=== PATIENT | female | born 1955 | race Caucasian/White ===

== ENCOUNTER → 2020-06-24 10:46 | Outpatient (CLI) | payer MEDICARE, SELFPAY ==
--- NOTE | 2020-06-24 10:54 | MM_ITS ---
PROCEDURE: MM DIG SCREENING MAMM BI W/CAD Digital Breast Tomosynthesis Included CLINICAL INDICATION: SCREENING There is no personal or family history of breast cancer. COMPARISON: No exams were available for comparison TECHNIQUE: Standard CC and MLO images and 3D Tomosynthesis was obtained. R2 CAD reviewed. FINDINGS: The breasts are composed primarily of fat with minimal scattered fibroglandular densities in the central portions bilaterally. There is minimal arterial calcification in each breast. There is no suspicious lesion in either breast and no suspicious microcalcifications. IMPRESSION: Low-density fatty type breast parenchyma with no suspicious lesions seen BI-RAD Category: 2 Benign Finding(s) FOLLOW-UP: 1YR 1 Year Follow-up (A letter has been sent to the patient regarding results of the study.) Dictated by: Dr. Abrahan Urena MD 07/03/2020 08:39 Dr. Abrahan Urena MD in [place] 07/03/2020 08:39
== END ==
PROVIDERS: PCP Nurse Practitioner Family; Visit Provider Nurse Practitioner Family
DX: Z12.31 Encounter for screening mammogram for malignant neoplasm of breast (principal)
CPT/HCPCS: 77063; 77067

== ENCOUNTER → 2020-08-05 11:20 | Outpatient (CLI) | payer MEDICARE, SELFPAY ==
--- NOTE | 2020-08-05 11:30 | XR_ITS ---
PROCEDURE: XR MULTIPLE SPINE 6+V CLINICAL INDICATION: LOW BACK PAIN Chronic back pain COMPARISON: No exams were available for comparison FINDINGS: Thoracic spine: Normal alignment. No fracture or dislocation. There are small anterior osteophytes in the lower thoracic spine with mild degenerative disc disease in the midthoracic spine. No lytic or blastic change. Lumbar spine: Prior kyphoplasty at the L1 level with some minimal extruded methylmethacrylate on the right. Wedge compression changes involve the L1 vertebral body with loss of height of approximately 40 percent. There is degenerative disc disease at L1-L2 and L2-L3. Mild degenerative disc disease L5-S1. No acute fracture or dislocation. No lytic or blastic change. Incidental note is made of multiple gallstones. IMPRESSION: 1. Chronic wedge compression changes of L1 status post prior vertebroplasty with multilevel thoracic and lumbar spondylosis as described above. 2. Cholelithiasis. Dictated by: Ty Becker MD 08/05/2020 13:26 Ty Becker MD in [place] 08/05/2020 13:26
== END ==
PROVIDERS: PCP Nurse Practitioner Family; Visit Provider Nurse Practitioner
DX: M54.5 Low back pain (principal)
CPT/HCPCS: 72084

== ENCOUNTER 2020-08-23 09:00 | Outpatient (RCR) | payer MEDICARE, SELFPAY | END 2020-09-27 16:15 | disposition home or self-care (01) | LOC: PT.CARL 09:00 | PROVIDERS: Visit Provider Nurse Practitioner | DX: M54.5 Low back pain (principal) | CPT/HCPCS: 97110; 97140; 97163 ==

== ENCOUNTER 2020-09-17 11:30 | Emergency (ER) | payer MEDICARE, SELFPAY ==
[2020-09-17 11:30] VITALS: BP 105/68; PULSE 77; RESP 20; TEMP 37.3; O2SAT 98; BMI 27.4
--- NOTE | 2020-09-17 11:48 | HMH.EDGENADL ---
ED Disposition Clinical Impression: Upper respiratory tract infection due to COVID-19 virus Disposition: Home, Self-Care Condition on Discharge: Good Additional Instructions: You were seen on an emergency basis. It is very important that you follow up with your primary care provider and/or specialist as we discussed within 2 days. All labs and imaging were obtained and interpreted here to rule out life threatening emergencies, but your final results should be reviewed by your primary doctor at your follow up appointment. Please return to the emergency department if any of your symptoms worsen, or if they do not improve as we discussed. Prescriptions: Benzonatate [Tessalon Perle 100mg Cap*] 100 mg PO TID PRN #15 cap PRN Reason: Cough Prescription Printed Referrals: Mayra Duff [Primary Care Provider] - - Critical Care Critical Care Time: No Attestation: On 09/17/20, the high probability of a clinically significant, sudden or life threatening deterioration of the following system(s) required my full and direct attention, intervention and personal management. The time I documented below is in addition to time spent performing reported procedures but includes the following listed in this critical care notation. Medical Decision Making - Medical Records Medical records reviewed: Yes: I reviewed the patient's medical records. - Teddy Inquiry Pt receiving controlled substance: No Orders (Tests/Meds): ED MEDICATIONS Generic Name Dose Route Start Last Admin Trade Name Freq PRN Reason Stop Dose Admin Benzonatate 100 mg 09/17/20 12:00 Benzonatate 100mg Capsule PO 10/17/20 11:59 ONCE MARIANO Discontinued Medications Generic Name Dose Route Start Last Admin Trade Name Freq PRN Reason Stop Dose Admin Dexamethasone Sodium Phosphate 10 mg 09/17/20 11:47 Dexamethasone 4mg/Ml 1ml Vial IM 09/17/20 11:48 ONCE ONE Medical Decision Narrative: 65-year-old female with active COVID-19 infection presenting for checkup mostly here because her is here with worse symptoms. Patient stated that her symptoms have been resolving. Her vitals are essentially normal and she is afebrile, oxygenating well on room air and hemodynamically stable. Mildly bronchospastic on exam but is already on albuterol and Robitussin at home. I will add Tessalon Perles for her cough and give her a dose of IM Decadron here. She has close follow-up with PCP. Chest x-ray and labs are not indicated today. Patient is very well-appearing and essentially asymptomatic here. General Adult HPI - General Stated complaint: covid 19 + soa Time Seen by Provider: 09/17/20 11:48 - History of Present Illness HPI narrative: This is a 65-year-old female with a history of hypertension, diabetes mellitus and a recent diagnosis of COVID-19 upper respiratory infection presenting for cough although patient is primarily here because her who was also diagnosed with Covid is getting worse and she was told to check in as well. Patient states that her cough, shortness of breath, diarrhea and vomiting have all resolved since her initial diagnosis. She has been taking albuterol and Robitussin for occasional shortness of breath which have also markedly improved since her initial diagnosis. Patient states that she essentially feels fine. No fever, chills, nausea, vomiting, shortness of breath, abdominal pain, diarrhea, constipation now. - Related Data Previous Rx's Medication Instructions Recorded Benzonatate [Tessalon Perle 100mg 100 mg PO TID PRN #15 cap 09/17/20 Cap*] Allergies Allergy/AdvReac Type Severity Reaction Status Date / Time NKDA Allergy Unknown Uncoded 08/20/17 15:12 [facility] History - Hepatitis A Screen Attestation statement:: This patient has been screened for Hepatitis A risk factors. I have reviewed the patient's past medical history: Yes ROS Obtained: Yes All systems reviewed & no additional
[2020-09-17 13:28] VITALS: BP 106/70; PULSE 84; RESP 18; TEMP 37.2; O2SAT 98
== END 2020-09-17 13:29 | disposition home or self-care (01) ==
PROVIDERS: Emergency Provider Physician Assistant; PCP Nurse Practitioner Family
DX: U07.1 COVID-19 (principal); I10 Essential (primary) hypertension; E11.9 Type 2 diabetes mellitus without complications
CPT/HCPCS: 96372; 99281

== ENCOUNTER 2021-02-07 11:00 | Outpatient (RCR) | payer MEDICARE, SELFPAY | END 2021-02-28 16:00 | disposition home or self-care (01) | LOC: PT.CARL 11:00 | PROVIDERS: Visit Provider Orthopaedic Surgery | DX: M54.5 Low back pain (principal) | CPT/HCPCS: 97110; 97163 ==

== ENCOUNTER → 2021-07-17 07:39 | Outpatient (CLI) | payer MEDICARE, SELFPAY ==
--- NOTE | 2021-07-17 07:45 | MM_ITS ---
PROCEDURE INFORMATION: Exam: MG Bilateral Screening 3D Mammography Exam date and time: 07/17/2021 7:45 AM Age: 65 years old Clinical indication: Encounter for screening mammogram for malignant neoplasm of breast TECHNIQUE: Imaging protocol: Bilateral screening tomosynthesis and 2D mammography including computer-aided detection (CAD) when performed. COMPARISON: MG MM DIG SCREENING MAMM BI W/CAD 06/24/2020 10:57 AM FINDINGS: MAMMOGRAPHY: Breast composition: The breast tissue is composed of scattered areas of fibroglandular density. Mass: None. Architectural distortion: None. Calcifications: No suspicious calcifications. Asymmetric density: None. Skin thickening: None. Axillary adenopathy: None. IMPRESSION: No mammographic evidence of malignancy. Annual screening is recommended unless otherwise clinically indicated. ASSESSMENT: BI-RADS Category 1: Negative
--- NOTE | 2021-07-17 08:41 | XR_ITS ---
PROCEDURE: XR DEXA AXIAL SKELETON CLINICAL HISTORY: POST MENOPAUSAL COMPARISON: No exams were available for comparison FINDINGS: The right hip BMD is 0.785 with a T-score of -0.6. The left hip BMD is 0.699 with a T-score of -1.4. The lumbar spine BMD is 1.191 with a T-score of 1.3. IMPRESSION: This patient is considered osteopenic according to the World Health Organization criteria. Bone density is between 10 and 25 percent below young normal. Fracture risk is moderate. Treatment is advised. Based on these results a follow-up exam is recommended in 2 year. Dictated by: Ty Becker MD 07/17/2021 11:53 Ty Becker MD in [place] 07/17/2021 11:53
== END ==
PROVIDERS: PCP Nurse Practitioner Family; Visit Provider Nurse Practitioner Family
DX: Z12.31 Encounter for screening mammogram for malignant neoplasm of breast (principal); Z13.820 Encounter for screening for osteoporosis; Z78.0 Asymptomatic menopausal state
CPT/HCPCS: 77063; 77067; 77080

== ENCOUNTER → 2022-10-10 12:28 | Outpatient (CLI) | payer MEDICARE, SELFPAY ==
--- NOTE | 2022-10-10 12:40 | XR_ITS ---
FINAL REPORT TECHNIQUE: Chest PA & Lateral CLINICAL HISTORY: FALL COMPARISON: none FINDINGS: 2 views of the chest were performed. The heart size is normal. The mediastinum is within normal limits. There is scarring at the left lung base. There is no acute cardiopulmonary process. There are no pleural effusions. There is no pneumothorax. The bony thorax appears intact. IMPRESSION: No acute cardiopulmonary process. Reviewed, Interpreted and Dictated by Nicolas Fuentes MD Transcribed by Palma Wetzel Authenticated and [facility]
--- NOTE | 2022-10-10 12:40 | XR_ITS ---
FINAL REPORT CLINICAL HISTORY: FALL COMPARISON: none FINDINGS: Three views of the thoracic spine were obtained. There is compression deformity at L1 of 50%. There are postoperative changes from prior kyphoplasty at L1. There is no malalignment. There is moderate anterior osteophyte formation. IMPRESSION: L1 compression deformity as described. Reviewed, Interpreted and Dictated by Nicolas Fuentes MD Transcribed by Palma Wetzel Authenticated and [facility]
--- NOTE | 2022-10-10 12:40 | XR_ITS ---
FINAL REPORT CLINICAL HISTORY: Acute right rib pain after fall COMPARISON: None FINDINGS: 3 views of the right ribs were obtained. There is no displaced, acute fracture identified. The visualized lungs are clear. No pneumothorax is identified. IMPRESSION: No displaced rib fracture or pneumothorax identified. Reviewed, Interpreted and Dictated by Nicolas Fuentes MD Transcribed by Palma Wetzel Authenticated and [facility]
== END ==
PROVIDERS: PCP Nurse Practitioner Family; Visit Provider Nurse Practitioner Family
DX: R07.81 Pleurodynia (principal); M54.6 Pain in thoracic spine; W01.0XXA Fall on same level from slipping, tripping and stumbling without subsequent striking against object, initial encounter
CPT/HCPCS: 71046; 71111; 72072

== ENCOUNTER 2023-09-23 10:33 | Outpatient (POV) | payer MEDICARE, SELFPAY | END 2023-09-23 23:59 | disposition home or self-care (01) | LOC: SC 10:34 | PROVIDERS: Visit Provider Nurse Practitioner | DX: Z00.00 Encounter for general adult medical examination without abnormal findings (principal) ==

== ENCOUNTER 2024-03-25 12:30 | Emergency (ER) | payer MEDICARE, SELFPAY ==
[2024-03-25 12:33] VITALS: BP 160/97; PULSE 86; RESP 18; TEMP 36.8; O2SAT 97; BMI 21.9
--- NOTE | 2024-03-25 13:04 | PC.NURSE ---
DR SANDOVAL AT BEDSIDE
[2024-03-25] MEDS: diazePAM 5MG TABLET 5 MG PO (13:25)
[2024-03-25] MEDS: ACETAMINOPHEN 500MG TAB 1000 MG PO (13:25)
[2024-03-25] MEDS: GABAPENTIN 100MG CAPSULE 100 MG PO (13:26)
[2024-03-25] MEDS: KETOROLAC 30MG/ML VIAL 30 MG IM (13:26)
[2024-03-25] MEDS: LIDOCAINE 5% TRANSDERMAL PATCH 1 EACH TP (13:27)
--- NOTE | 2024-03-25 13:41 | HMH.EDGENADL ---
Discharge Plan Disposition Patient Disposition: Home, Self-Care Condition: Good Prescriptions Prescriptions: New oxycodone 5 mg tablet 5 mg PO HS Qty: 3 0RF Rx Instructions: Take before bed nightly lidocaine 5 % adhesive patch,medicated See Rx Instructions .ROUTE .COMPLEX Qty: 15 0RF Rx Instructions: Remove the patch after 12 hours and leave off for 12 hours before putting on a new patch ondansetron 4 mg tablet,disintegrating 4 mg PO Q8H PRN (Reason: nausea and vomiting) 4 Days Qty: 10 0RF Referrals Follow up/Referrals: Mayra Duff [Primary Care Provider] - See instructions Activity Restrictions/Add. Instructions Additional Instructions/Restrictions: You were evaluated in the ER. You are appropriate for discharge at this time. Continue taking your gabapentin. Take the newly prescribed oxycodone at nighttime only before bed. Go directly to bed after taking this. Apply the prescribed lidocaine patches as directed. Also take Tylenol if needed, do not exceed the recommended doses on the bottle. Do not take your tramadol while taking oxycodone. Call your primary care provider for an appointment in the next 2 days to discuss your medications and pain. Return to the ER with new or otherwise concerning symptoms. Clinical Impressions Clinical Impression: Acute left-sided back pain with sciatica Print Language Print Language: Belgian Discharge ED Provider: Gavi Campbell General Adult HPI <Gavi Campbell DO - Last Filed: 03/25/24 16:09> General Chief complaint: Extremity Problem,Nontraumatic Stated complaint: left leg, hip and back pain Time Seen by Provider: 03/25/24 13:09 Mode of Arrival: Wheelchair Source of Information: Patient Limitations: No Limitations Description of Symptoms (Recalled from ER Triage Doc. by RN): patient reports severe left hip pain that is worse with movement. patient reports the pain began in January, seen her PCP and the spine clinic. last night and upon waking up this morning the pain is significantly worse and the patient states untolerable. History of Present Illness HPI narrative: This patient is a 68-year-old female with a history of degenerative disc disease and chronic back pain on gabapentin who reports that for the last several months, she has been having sciatica. She has seen a spine doctor who told her she needs to do 6 weeks of physical therapy, which she is doing. She is also on gabapentin 100 mg 3 times daily, but the pain has been very severe over the last several days to the point where she is not able to sleep. No new falls or injuries. The pain starts in her left foot and shoots all the way down to her left foot on the posterior aspect. No saddle anesthesia, incontinence, retention, or other concerns. Related Data Previous Rx's ?Medication ?Instructions ?Recorded lidocaine 5 % topical patch See Rx Instructions topical 03/25/24 .COMPLEX #15 ea ondansetron 4 mg disintegrating 4 mg PO Q8H PRN nausea and 03/25/24 tablet vomiting 4 days #10 tabs oxycodone 5 mg tablet 5 mg PO HS #3 tabs 03/25/24 Allergies Allergy/AdvReac Type Severity Reaction Status Date / Time sulfamethoxazole Allergy Verified 03/25/24 12:50 [From Bactrim] trimethoprim [From Bactrim] Allergy Verified 03/25/24 12:50 PFSH <Gavi Campbell DO - Last Filed: 03/25/24 16:09> [facility] Disclaimer: The information contained in this section may have been updated after the patient was seen, as this information can be updated by other users. Social History (Updated 03/25/24 @ 16:09 by Gavi Campbell DO) Smoking Status: Never smoker alcohol intake: never current occupational status: retired Travel in the last 8 weeks: None <Gavi Campbell DO - Last Filed: 03/25/24 16:09> ROS Obtained: Yes All systems reviewed & no additional complaints except as documented Physical Exam <Gavi Campbell DO - Last Filed: 03/25/24 16:09> General General appearance: alert and anxious Comment: Uncomfortable appearing, tearful Head Head exam: atraumatic and normocephalic Eye Eye exam: Present normal appearance, PERRL and EOMI ENT ENT exam: Present normal exam, normal oropharynx, mucous membranes moist and normal external ear exam Neck Neck exam: Present normal inspection, full ROM and trachea midline; Absent tenderness Chest Chest inspection: Present normal inspection and symmetric chest wall rise; Absent tenderness Respiratory Respiratory exam: Present normal lung sounds bilaterally; Absent respiratory distress, wheezes, stridor or accessory muscle use Cardiovascular Cardiovascular exam: Present regular rate and normal rhythm Abdominal Exam Abdominal exam: Present soft; Absent distention, tenderness or guarding Extremities Exam Extremities exam: Present normal inspection, full ROM and normal capillary refill; Absent tenderness or edema Back Exam Back exam: Present full ROM and straight leg raise (L); Absent tenderness Neurological Exam Neurological exam: Present alert, oriented X3, CN II-XII intact and normal gait; Absent motor sensory deficit Psychiatric Psychiatric exam: Present normal affect and normal mood Skin Skin exam: Present warm and dry Medical Decision Making <Gavi Campbell, DO - Last Filed: 03/25/24 16:09> Medical Records Medical records reviewed: Yes I reviewed the patient's medical records. Teddy Inquiry Pt receiving controlled substance: No Vital Signs: 03/25/24 12:33 Temperature 98.3 F Temperature Source Oral Pulse Rate [Right Radial] 86 Respiratory Rate 18 Blood Pressure [Right Arm] 160/97 H Blood Pressure Mean [Right Arm] 118 Blood Pressure Source [Right Arm] Automatic Cuff Blood Pressure Position [Right Arm] Sitting 02 Sat by Pulse Oximetry 97 Oxygen Delivery Method Room Air Lab Data Lab results reviewed: Yes I reviewed the patient's lab results. Orders (Tests/Meds): ED MEDICATIONS Discontinued Medications Generic Name Dose Route Start Last Admin Trade Name Juvenal PRN Reason Stop Dose Admin Acetaminophen 1,000 mg 03/25/24 13:09 03/25/24 13:25 Acetaminophen 500mg Tab PO 03/25/24 13:10 1,000 mg ONCE ONE Administration Diazepam 5 mg 03/25/24 13:03/25/24 13:25 Diazepam 5mg Tablet PO 03/25/24 13:10 5 mg ONCE ONE Administration Gabapentin 200 mg 03/25/24 13:03/25/24 13:45 Gabapentin 100mg Capsule PO 03/25/24 13:10 Not Given ONCE ONE Gabapentin 100 mg 03/25/24 13:03/25/24 13:26 Gabapentin 100mg Capsule PO 03/25/24 13:10 100 mg ONCE ONE Administration Ketorolac Tromethamine 30 mg 03/25/24 13:03/25/24 13:26 Ketorolac 30mg/Ml Vial IM 03/25/24 13:10 30 mg ONCE ONE Administration Lidocaine 1 each 03/25/24 13:09 03/25/24 13:27 Lidocaine 5% Transdermal Patch TP 03/25/24 13:10 1 each ONCE ONE Administration Oxycodone HCl 5 mg 03/25/24 15:13 03/25/24 15:21 Oxycodone 5mg Immediate Release Tablet PO 03/25/24 15:14 5 mg ONCE ONE Administration ORDERS Category Date Time Status CT lumbar spine wo con Stat Cat Scan 03/25/24 15:00 Completed Hip XR left minimum 2 views [XR hip LT 2-3V w/pelvis] Exams 03/25/24 15:00 Completed Stat Medical Decision Narrative: In summary, this patient is a 68-year-old female presenting to the Emergency Department for evaluation of left-sided sciatica is acute on chronic. Differential diagnoses considered include but are not limited to sciatica, lumbar radiculopathy, disc herniation. Ruling out the most morbid conditions drove assessment. On exam, the patient is anxious appearing and tearful. She is neurologically intact with no evidence of spinal cord compression or cauda equina syndrome. 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 Will treat the patient's symptoms and see if we are able to get her under control and ambulating better. Patient was given IM Toradol, oral Tylenol, oral Valium, and additional dose of oral gabapentin, and a topical Lidoderm patch. On reassessment, patient states that she is gotten no improvement with these medications. She states she still having really severe back and leg pain. She was given oral oxycodone. Given this, CT lumbar spine and x-rays of the left hip and pelvis were ordered. Patient care was signed out to the oncoming provider, Dr. Gonzalez. <Anjali Gonzalez MD - Last Filed: 03/25/24 17:49> Teddy Inquiry Pt receiving controlled substance: Yes Teddy was queried for this patient: Yes Reference #:: [id number] Risks and benefits of using a controlled substance: were discussed with pt by me Comment: explicit instructions given to patient on home medication use Vital Signs: 03/25/24 12:33 Temperature 98.3 F Temperature Source Oral Pulse Rate [Right Radial] 86 Respiratory Rate 18 Blood Pressure [Right Arm] 160/97 H Blood Pressure Mean [Right Arm] 118 Blood Pressure Source [Right Arm] Automatic Cuff Blood Pressure Position [Right Arm] Sitting 02 Sat by Pulse Oximetry 97 Oxygen Delivery Method Room Air Orders (Tests/Meds): ED MEDICATIONS Discontinued Medications Generic Name Dose Route Start Last Admin Trade Name Juvenal PRN Reason Stop Dose Admin Acetaminophen 1,000 mg 03/25/24 13:09 03/25/24 13:25 Acetaminophen 500mg Tab PO 03/25/24 13:10 1,000 mg ONCE ONE Administration Diazepam 5 mg 03/25/24 13:09 03/25/24 13:25 Diazepam 5mg Tablet PO 03/25/24 13:10 5 mg ONCE ONE Administration Gabapentin 200 mg 03/25/24 13:09 03/25/24 13:45 Gabapentin 100mg Capsule PO 03/25/24 13:10 Not Given ONCE ONE Gabapentin 100 mg 03/25/24 13:09 03/25/24 13:26 Gabapentin 100mg Capsule PO 03/25/24 13:10 100 mg ONCE ONE Administration Ketorolac Tromethamine 30 mg 03/25/24 13:09 03/25/24 13:26 Ketorolac 30mg/Ml Vial IM 03/25/24 13:10 30 mg ONCE ONE Administration Lidocaine 1 each 03/25/24 13:09 03/25/24 13:27 Lidocaine 5% Transdermal Patch TP 03/25/24 13:10 1 each ONCE ONE Administration Oxycodone HCl 5 mg 03/25/24 15:13 03/25/24 15:21 Oxycodone 5mg Immediate Release Tablet PO 03/25/24 15:14 5 mg ONCE ONE Administration ORDERS Category Date Time Status CT lumbar spine wo con Stat Cat Scan 03/25/24 15:00 Completed Hip XR left minimum 2 views [XR hip LT 2-3V w/pelvis] Exams 03/25/24 15:00 Completed Stat Medical Decision Narrative: In summary, this patient is a 68-year-old female presenting to the Emergency Department for evaluation of left-sided sciatica is acute on chronic. Differential diagnoses considered include but are not limited to sciatica, lumbar radiculopathy, disc herniation. Ruling out the most morbid conditions drove assessment. On exam, the patient is anxious appearing and tearful. She is neurologically intact with no evidence of spinal cord compression or cauda equina syndrome. 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 Will treat the patient's symptoms and see if we are able to get her under control and ambulating better. Patient was given IM Toradol, oral Tylenol, oral Valium, and additional dose of oral gabapentin, and a topical Lidoderm patch. On reassessment, patient states that she is gotten no improvement with these medications. She states she still having really severe back and leg pain. She was given oral oxycodone. Given this, CT lumbar spine and x-rays of the left hip and pelvis were ordered. Patient care was signed out to the oncoming provider, Dr. Gonzalez. Carlos: Upon my assumption of care patient is stable. She had just received oral oxycodone and was still complaining of pain. Imaging was pending. I personally interpreted imaging and do not appreciate acute traumatic injury, patient has findings consistent with degenerative changes. On reassessment patient was sleeping and resting comfortably. She was able to ambulate in the ER. Her pain is significantly improved. I spent significant time at bedside counseling and educating the patient on home medications. She states the tramadol she had been previously prescribed she is not currently taking, but it never worked for her anyways. I instructed her to stop taking this and gave her a very small prescription for oxycodone to only be taken at night to help her rest. This is only to be used for her acute pain flare. She and family were instructed to have her see her primary care physician immediately to discuss ongoing pain medications. Patient still has no red flag symptoms and is appropriate for discharge. I did prescribe Zofran and lidocaine patches as well for outpatient management. Patient was given instructions on symptomatic management, follow up instructions, and return precautions for the emergency department. Patient indicated understanding and was discharged in stable condition. Critical Care <Gavi Campbell, - Last Filed: 03/25/24 16:09> Critical Care Time Critical Care Time: No
--- NOTE | 2024-03-25 15:00 | CT_ITS ---
FINAL REPORT CLINICAL HISTORY: pain rad down L leg COMPARISON: MRI of the lumbar spine dated 10/30/2021 FINDINGS: CT LUMBAR SPINE TECHNIQUE: Thin section axial CT with sagittal and coronal reconstructions FINDINGS: Post kyphoplasty change is present in the L1 vertebral body. A mild chronic compression fracture is noted at that level. No acute fracture is present. Alignment is normal. There is mild central canal stenosis present at the L2-3, L3-4, and L5-S1 levels, with moderate canal stenosis present at the L4-5 level. Moderate diffuse degenerative disc disease is present. IMPRESSION: No acute bony abnormality is identified. Multilevel canal stenosis is present, most prominent at the L4-5 level. Would suggest MR follow-up if clinically indicated for further evaluation. This study was performed using automated techniques to achieve radiation exposure as low as reasonably achievable Reviewed, Interpreted and Dictated by Vincent Sow MD Transcribed by Karime Henderson Authenticated and [facility]
--- NOTE | 2024-03-25 15:00 | XR_ITS ---
FINAL REPORT CLINICAL HISTORY: pain rad down L leg COMPARISON: None FINDINGS: LEFT HIP: Two views of the left hip demonstrate no acute fracture or dislocation. Moderate degenerative changes are present. The visualized bony structures are well aligned. No soft tissue abnormality is seen. IMPRESSION: Moderate degenerative change, no acute bony abnormality. Reviewed, Interpreted and Dictated by Vincent Sow MD Transcribed by Karime Henderson Authenticated and [facility]
[2024-03-25] MEDS: OXYCODONE 5MG IMMEDIATE RELEASE TABLET 5 MG PO (15:21)
--- NOTE | 2024-03-25 15:30 | PC.NURSE ---
patient and family updated about ct and xray ordered. pain med administered
[2024-03-25] MEDS: ONDANSETRON 4MG ODT 4 MG SL (17:48)
[2024-03-25 18:00] VITALS: BP 170/89; PULSE 90; RESP 19; TEMP 36.4
== END 2024-03-25 18:00 | disposition home or self-care (01) ==
PROVIDERS: Emergency Provider Emergency Medicine; PCP Nurse Practitioner Family
DX: M54.42 Lumbago with sciatica, left side (principal)
CPT/HCPCS: 72131; 73502; 96372; 99284; J1885

== ENCOUNTER 2024-05-06 12:24 | Inpatient (IN) | payer MEDICARE, SELFPAY ==
[2024-05-06] VITALS (9 sets, daily range): BP systolic 103–183; BP diastolic 58–92; PULSE 74–94; RESP 13–18; TEMP 36.5–36.9; O2SAT 97–99; BMI 19.7; BMI 21.4
--- NOTE | 2024-05-06 | ECG_ITS ---
APPROVED REPORT Exam: Resting ECG HR:90 bpm ECG Measurements Heart Rate 90 AXES AZ 128 P 59 QRSd 90 QRS 69 QT 318 T 77 QTc 366 Conclusion SINUS RHYTHM NORMAL ECG UNCONFIRMED REPORT Electronically signed by : SHONDA PATEL, 05/06/2024 15:42:57
--- NOTE | 2024-05-06 12:51 | PC.NURSE ---
Dr. Frost at [facility] for pt eval
--- NOTE | 2024-05-06 12:58 | CT_ITS ---
FINAL REPORT CLINICAL HISTORY: Lower abd pain COMPARISON: None FINDINGS: CT OF THE ABDOMEN AND PELVIS WITH CONTRAST Axial CT images of the abdomen and pelvis were obtained after the administration of IV contrast. Coronal and sagittal reformatted images were also obtained and reviewed. This study was performed with techniques to keep radiation doses as low as reasonably achievable (ALARA). Individualized dose reduction techniques using automated exposure control or adjustment of mA and/or kV according to the patient's size were employed. Abdomen: The lung bases are clear. The heart is normal in size. The liver has an unremarkable appearance, without evidence of mass or biliary ductal dilatation. There are multiple stones and a contracted gallbladder with marked gallbladder wall thickening, and cholecystitis is not excluded. The spleen is unremarkable. No adrenal mass is present. The pancreas has an unremarkable appearance. The kidneys are normal, without evidence of mass or hydronephrosis. The aorta is normal in caliber. There is no free fluid or adenopathy. No mass or abnormal fluid collection is seen. Pelvis: The appendix is normal in appearance the urinary bladder is unremarkable. No inflammatory process is seen. There is no evidence of mass or adenopathy. There is no evidence of bowel obstruction. There are multiple descending and sigmoid colon diverticula without evidence of acute inflammatory change. A previous kyphoplasty has been performed at the L1 level. IMPRESSION: Multiple gallstones are present in a contracted gallbladder with marked gallbladder wall thickening, and cholecystitis is not excluded. No biliary ductal dilatation is present. Descending and sigmoid diverticulosis without evidence of acute inflammatory change. Prior L1 kyphoplasty. Reviewed, Interpreted and Dictated by Sunny Thompson III, MD Transcribed by Karime Henderson Authenticated and [facility]
[2024-05-06 13:08] LABS: Chloride 96 mmol/L (98-107)
[2024-05-06 13:09] LABS: Albumin Level 4.4 g/dl (3.5-5.0); Potassium 5.1 mmoL/L (3.5-5.1); Sodium 131 mmol/L (136-145)
[2024-05-06] MEDS: ONDANSETRON 4MG/2ML VIAL 4 MG IV ×2 (13:10→17:26)
[2024-05-06 13:11] LABS: Alanine Aminotransferase 52 U/L (12-78); Alkaline Phosphatase 35 U/L (38-126); Aspartate Amino Transferase 37 U/L (14-36); Blood Urea Nitrogen 16 mg/dl (7-17); Creatinine Clearance Estimated 34 mL/min (50-200); Estimated Glomerular Filt Rate 41 ml/min (>60); GFR (African American) 49 ML/MIN (>60)
[2024-05-06 13:12] LABS: Albumin/Globulin Ratio 1.7 (1.1-1.8); Anion Gap 11.1 mEq/L (5-15); Basophils # 0.1 K/mm3 (0-0.2); Basophils % 0.8 % (0.1-2.0); Calcium 9.8 mg/dl (8.4-10.2); Carbon Dioxide 29 mmol/L (22.0-30.0); Eosinophils # 0.1 K/mm3 (0.0-0.4); Eosinophils % 0.8 % (0.1-12.0); Globulin 2.6 g/dL (1.3-3.2); Glucose 135 mg/dl (74-100); Hematocrit 38.6 % (37.0-47.0); Hemoglobin 12.6 g/dL (12.2-16.2); Lipase 293 U/L (23-300); Lymphocytes # 1.5 K/mm3 (0.7-4.5); Lymphocytes % 18.5 % (10-50); Mean Corpuscular HGB Conc 32.7 g/dL (31.8-35.4); Mean Corpuscular Hemoglobin 31.3 pg (27.0-31.2); Mean Corpuscular Volume 95.7 fl (81-99); Mean Platelet Volume 7.9 fl (7.4-10.4); Monocytes # 0.5 K/mm3 (0.1-1.0); Monocytes % 5.8 % (1.7-9.3); Neutrophils # 6.1 K/mm3 (1.8-7.8); Platelet Count 226 K/mm3 (142-424); Red Blood Count 4.03 M/mm3 (4.20-5.40); White Blood Count 8.2 K/mm3 (4.8-10.8)
[2024-05-06 13:13] LABS: Lactic Acid 2.4 mmol/L (0.7-2.1)
--- NOTE | 2024-05-06 13:14 | ED_ITS ---
Discharge Plan Disposition Patient Disposition: Admitted Condition: Good Clinical Impressions Clinical Impression: UTI (urinary tract infection), Abdominal pain, lower, Decreased oral intake, Generalized weakness, Gallstones Discharge ED Provider: Gavi Campbell General Adult HPI <Deepak Frost DO - Last Filed: 05/06/24 15:32> General Chief complaint: Weakness Stated complaint: not eating, drinking, stomach cramps, weight loss Time Seen by Provider: 05/06/24 12:49 Mode of Arrival: Ambulatory Source of Information: Patient Limitations: No Limitations Description of Symptoms (Recalled from ER Triage Doc. by RN): pt presents to ED with c/o feeling unwell for the past 3 weeks. pt reports for 3 weeks she has had increased weakness, no appetite, nausea, dizziness. pt reports to being seen by her pcp but symptoms continue to worsen. History of Present Illness HPI narrative: 68-year-old female with past medical history significant for DM2, HTN, HLD, hypothyroidism, reports remote history of brain aneurysm, presents today for evaluation concerning decreased p.o. intake with associated nausea over the past 3 to 4 weeks. She also states that she has had lower abdominal cramping and reports urinary frequency on today. She also reports that she has had intermittent episodes of diarrhea over the past few days. Also complains of generalized weakness. Denies any chest pain, shortness of breath, fevers or chills. No further complaints. Related Data Previous Rx's ?Medication ?Instructions ?Recorded lidocaine 5 % topical patch See Rx Instructions topical 03/25/24 .COMPLEX #15 ea ondansetron 4 mg disintegrating 4 mg PO Q8H PRN nausea and 03/25/24 tablet vomiting 4 days #10 tabs oxycodone 5 mg tablet 5 mg PO HS #3 tabs 03/25/24 cefdinir 300 mg capsule 300 mg PO BID 5 days #10 caps 05/06/24 Allergies Allergy/AdvReac Type Severity Reaction Status Date / Time sulfamethoxazole Allergy Verified 03/25/24 12:50 [From Bactrim] trimethoprim [From Bactrim] Allergy Verified 03/25/24 12:50 PFSH <Deepak Frost DO - Last Filed: 05/06/24 15:32> PFS Disclaimer: The information contained in this section may have been updated after the patient was seen, as this information can be updated by other users. Social History (Updated 03/25/24 @ 16:09 by Gaiv Campbell DO) Smoking Status: Never smoker alcohol intake: never current occupational status: retired Travel in the last 8 weeks: None <Deepakjoel Frost DO - Last Filed: 05/06/24 15:32> ROS Obtained: Yes All systems reviewed & no additional complaints except as documented Physical Exam <Deepakjoel Frost DO - Last Filed: 05/06/24 15:32> General General appearance: alert and in no apparent distress Head Head exam: atraumatic and normocephalic Eye Eye exam: Present normal appearance, PERRL and EOMI ENT ENT exam: Present normal oropharynx and mucous membranes moist Neck Neck exam: Present full ROM; Absent meningismus Respiratory Respiratory exam: Absent respiratory distress, wheezes, stridor or accessory muscle use Cardiovascular Cardiovascular exam: Present normal rhythm Abdominal Exam Abdominal exam: Present soft; Absent distention, tenderness, guarding, rebound or rigidity Abdominal tenderness: Present RLQ, LLQ and suprapubic Neurological Exam Neurological exam: Present alert, oriented X3 and CN II-XII intact; Absent motor sensory deficit Psychiatric Psychiatric exam: Present normal affect and normal mood Skin Skin exam: Present warm and dry Medical Decision Making <Albanyjoel Frost DO - Last Filed: 05/06/24 15:32> Medical Records Medical records reviewed: Yes I reviewed the patient's medical records. Teddy Inquiry Pt receiving controlled substance: No Teddy was queried for this patient: No Vital Signs: 05/06/24 12:25 05/06/24 12:29 05/06/24 13:00 Temperature 97.7 F Temperature Source Oral Pulse Rate 79 81 Pulse Rate [Left Radial] 94 H Respiratory Rate 13 Blood Pressure 119/66 103/65 L Blood Pressure [Right Arm] 119/66 Blood Pressure Mean [Right Arm] 83 02 Sat by Pulse Oximetry 98 98 99 Oxygen Delivery Method Room Air Room Air Room Air 05/06/24 13:58 05/06/24 14:00 05/06/24 17:23 Temperature Temperature Source Pulse Rate 78 82 86 Pulse Rate [Left Radial] Respiratory Rate Blood Pressure 116/72 136/73 183/92 H Blood Pressure [Right Arm] Blood Pressure Mean [Right Arm] 02 Sat by Pulse Oximetry 98 98 99 Oxygen Delivery Method Room Air Lab Data Lab Results 05/06/24 12:45: WBC 8.2, RBC 4.03 L, Hgb 12.6, Hct 38.6, MCV 95.7, MCH 31.3 H, MCHC 32.7, RDW 15.0, Plt Count 226, MPV 7.9, Neut % (Auto) 74.0, Lymph % (Auto) 18.5, [place]wey % (Auto) 5.8, Eos % (Auto) 0.8, Baso % (Auto) 0.8, Neut # (Auto) 6.1, Lymph # (Auto) 1.5, [place] # (Auto) 0.5, Eos # (Auto) 0.1, Baso # (Auto) 0.1, S odium 131 L, Potassium 5.1, Chloride 96 L, Carbon Dioxide 29, Anion Gap 11.1, BUN 16, Creatinine 1.30 H, Estimated Creat Clear 34, Estimated GFR 41 L, Est GFR ( Amer) 49 L, Glucose 135 H, Lactate 2.4 H, Calcium 9.8, Total Bilirubin 1.0, AST 37 H, ALT 52, Alkaline Phosphatase 35 L, Total Protein 7.0, Albumin 4.4, Globulin 2.6, Albumin/Globulin Ratio 1.7, Lipase 293 05/06/24 13:41: Urine Color Yellow, Urine Appearance Clear, Urine pH 6.0, Ur Specific [place] <= 1.005, Urine Protein Negative, Urine Glucose (UA) Negative, Urine Ketones Negative, Urine Blood Negative, Urine Nitrate Negative, Urine Bilirubin Negative, Urine Urobilinogen 0.2, Ur Leukocyte Esterase 2+ A, Urine RBC None, Urine WBC 10-20, Ur Squamous Epith Cells 5-10, Urine Bacteria Trace, Urine Yeast Occasional 05/06/24 12:45 05/06/24 12:45 Orders (Tests/Meds): ED MEDICATIONS Discontinued Medications Generic Name Dose Route Start Last Admin Trade Name Freq PRN Reason Stop Dose Admin Acetaminophen 1,000 mg 05/06/24 13:19 05/06/24 13:26 Acetaminophen 1,000mg/100ml Vial IV 05/06/24 13:20 1,000 mg ONCE ONE Administration Lactated Ringer's 1,000 mls @ 999 mls/hr 05/06/24 13:23 05/06/24 13:26 Lactated Ringer's 1000 Ml Bag IV 05/06/24 14:23 999 mls/hr .Q1H1M ONE Administration Piperacillin Sod/Tazobactam 50 mls @ 100 mls/hr 05/06/24 17:25 Sod 3.375 gm/ Sodium Chloride IV 05/06/24 17:54 ONCE ONE Iopamidol 75 ml 05/06/24 13:25 05/06/24 13:30 Iopamidol-370 (76%);100ml Bottle IV 05/06/24 13:26 75 ml ONCE ONE Administration Morphine Sulfate 2 mg 05/06/24 12:58 05/06/24 17:00 Morphine 2mg/Ml Syringe IV 05/06/24 12:59 Not Given ONCE ONE Morphine Sulfate 4 mg 05/06/24 17:06 05/06/24 17:26 Morphine 4mg/Ml Syringe IV 05/06/24 17:07 4 mg ONCE ONE Administration Ondansetron HCl 4 mg 05/06/24 12:58 05/06/24 13:10 Ondansetron 4mg/2ml Vial IV 05/06/24 12:59 4 mg ONCE ONE Administration Ondansetron HCl 4 mg 05/06/24 17:06 05/06/24 17:26 Ondansetron 4mg/2ml Vial IV 05/06/24 17:07 4 mg ONCE ONE Administration Sodium Chloride 10 ml 05/06/24 13:25 05/06/24 13:30 Sodium Chloride 0.9% 10ml Syr (Rad Only) IV 05/06/24 13:26 10 ml ONCE ONE Administration ORDERS Category Date Time Status CT abdomen pelvis w con Stat Cat Scan 05/06/24 12:58 Completed US gallbladder Stat Exams 05/06/24 15:09 Completed CBC w/Auto Diff [Complete Blood Count Auto Diff] Stat Lab 05/06/24 12:45 Completed CMP [Comprehensive Metabolic Panel] Stat Lab 05/06/24 12:45 Completed Lactic Acid Follow Up (RFLX 1) Stat Lab 05/06/24 17:23 Received Lactic Acid Stat Lab 05/06/24 12:45 Completed Lipase Stat Lab 05/06/24 12:45 Completed UA [Urinalysis and Microscopic] Stat Lab 05/06/24 13:41 Completed Urine Culture Stat Micro 05/06/24 13:41 Received Medical Decision Narrative: 68-year-old female with past medical history significant for DM2, HTN, HLD, hypothyroidism, reports remote history of brain aneurysm, presents today for evaluation concerning decreased p.o. intake with associated nausea over the past 3 to 4 weeks. She also states that she has had lower abdominal cramping and reports urinary frequency on today. She also reports that she has had intermittent episodes of diarrhea over the past few days. Also complains of generalized weakness. On assessment she was hemodynamically stable and in no acute distress. Afebrile. Chest was clear station bilaterally. Her abdomen was soft and nondistended however she was tender to palpation in the lower quadrants. No peripheral edema noted. She was otherwise well-appearing. Otherwise exam findings unremarkable. Differential diagnoses include but limited to diverticulitis, colitis, UTI, electrolyte disturbance, gastritis, gastroenteritis, appendicitis, among others. Patient's laboratory has been remarkable for no elevation in WBC at 8.2. Sodium of 131. Creatinine is elevated at 1.3. Lactate at 2.4. She does have 2+ leukocyte esterase, 10-20 WBCs, trace bacteria on urinalysis consistent with UTI in the setting of her symptoms. EKG personally inter by me. Normal sinus rhythm with a rate of [address]pm[address] No ischemic changes. CT imaging shows multiple gallstones and contracted gallbladder with marked gallbladder wall thickening. Descending and sigmoid diverticulosis without inflammatory changes. On reassessment the patient hemodynamically stable and in no acute distress. I discussed ED workup and current results. She is not significantly tender in the right upper quadrant on repeat examination however I will order a formal right upper quadrant ultrasound to further assess. Care at this time signed out to oncoming provider. <Gavi Campbell, DO - Last Filed: 05/06/24 18:09> Vital Signs: 05/06/24 12:25 05/06/24 12:29 05/06/24 13:00 Temperature 97.7 F Temperature Source Oral Pulse Rate 79 81 Pulse Rate [Left Radial] 94 H Respiratory Rate 13 Blood Pressure 119/66 103/65 L Blood Pressure [Right Arm] 119/66 Blood Pressure Mean [Right Arm] 83 02 Sat by Pulse Oximetry 98 98 99 Oxygen Delivery Method Room Air Room Air Room Air 05/06/24 13:58 05/06/24 14:00 05/06/24 17:23 Temperature Temperature Source Pulse Rate 78 82 86 Pulse Rate [Left Radial] Respiratory Rate Blood Pressure 116/72 136/73 183/92 H Blood Pressure [Right Arm] Blood Pressure Mean [Right Arm] 02 Sat by Pulse Oximetry 98 98 99 Oxygen Delivery Method Room Air Lab Data Lab Results 05/06/24 12:45: WBC 8.2, RBC 4.03 L, Hgb 12.6, Hct 38.6, MCV 95.7, MCH 31.3 H, MCHC 32.7, RDW 15.0, Plt Count 226, MPV 7.9, Neut % (Auto) 74.0, Lymph % (Auto) 18.5, [place] % (Auto) 5.8, Eos % (Auto) 0.8, Baso % (Auto) 0.8, Neut # (Auto) 6.1, Lymph # (Auto) 1.5, [place] # (Auto) 0.5, Eos # (Auto) 0.1, Baso # (Auto) 0.1, S odium 131 L, Potassium 5.1, Chloride 96 L, Carbon Dioxide 29, Anion Gap 11.1, BUN 16, Creatinine 1.30 H, Estimated Creat Clear 34, Estimated GFR 41 L, Est GFR ( Amer) 49 L, Glucose 135 H, Lactate 2.4 H, Calcium 9.8, Total Bilirubin 1.0, AST 37 H, ALT 52, Alkaline Phosphatase 35 L, Total Protein 7.0, Albumin 4.4, Globulin 2.6, Albumin/Globulin Ratio 1.7, Lipase 293 05/06/24 13:41: Urine Color Yellow, Urine Appearance Clear, Urine pH 6.0, Ur Specific [place] <= 1.005, Urine Protein Negative, Urine Glucose (UA) Negative, Urine Ketones Negative, Urine Blood Negative, Urine Nitrate Negative, Urine Bilirubin Negative, Urine Urobilinogen 0.2, Ur Leukocyte Esterase 2+ A, Urine RBC None, Urine WBC 10-20, Ur Squamous Epith Cells 5-10, Urine Bacteria Trace, Urine Yeast Occasional Orders (Tests/Meds): ED MEDICATIONS Discontinued Medications Generic Name Dose Route Start Last Admin Trade Name Freq PRN Reason Stop Dose Admin Acetaminophen 1,000 mg 05/06/24 13:19 05/06/24 13:26 Acetaminophen 1,000mg/100ml Vial IV 05/06/24 13:20 1,000 mg ONCE ONE Administration Lactated Ringer's 1,000 mls @ 999 mls/hr 05/06/24 13:23 05/06/24 13:26 Lactated Ringer's 1000 Ml Bag IV 05/06/24 14:23 999 mls/hr .Q1H1M ONE Administration Piperacillin Sod/Tazobactam 50 mls @ 100 mls/hr 05/06/24 17:25 Sod 3.375 gm/ Sodium Chloride IV 05/06/24 17:54 ONCE ONE Iopamidol 75 ml 05/06/24 13:25 05/06/24 13:30 Iopamidol-370 (76%);100ml Bottle IV 05/06/24 13:26 75 ml ONCE ONE Administration Morphine Sulfate 2 mg 05/06/24 12:58 05/06/24 17:00 Morphine 2mg/Ml Syringe IV 05/06/24 12:59 Not Given ONCE ONE Morphine Sulfate 4 mg 05/06/24 17:06 05/06/24 17:26 Morphine 4mg/Ml Syringe IV 05/06/24 17:07 4 mg ONCE ONE Administration Ondansetron HCl 4 mg 05/06/24 12:58 05/06/24 13:10 Ondansetron 4mg/2ml Vial IV 05/06/24 12:59 4 mg ONCE ONE Administration Ondansetron HCl 4 mg 05/06/24 17:06 05/06/24 17:26 Ondansetron 4mg/2ml Vial IV 05/06/24 17:07 4 mg ONCE ONE Administration Sodium Chloride 10 ml 05/06/24 13:25 05/06/24 13:30 Sodium Chloride 0.9% 10ml Syr (Rad Only) IV 05/06/24 13:26 10 ml ONCE ONE Administration ORDERS Category Date Time Status CT abdomen pelvis w con Stat Cat Scan 05/06/24 12:58 Completed US gallbladder Stat Exams 05/06/24 15:09 Completed CBC w/Auto Diff [Complete Blood Count Auto Diff] Stat Lab 05/06/24 12:45 Completed CMP [Comprehensive Metabolic Panel] Stat Lab 05/06/24 12:45 Completed Lactic Acid Follow Up (RFLX 1) Stat Lab 05/06/24 17:23 Received Lactic Acid Stat Lab 05/06/24 12:45 Completed Lipase Stat Lab 05/06/24 12:45 Completed UA [Urinalysis and Microscopic] Stat Lab 05/06/24 13:41 Completed Urine Culture Stat Micro 05/06/24 13:41 Received Medical Decision Narrative: 68-year-old female with past medical history significant for DM2, HTN, HLD, hypothyroidism, reports remote history of brain aneurysm, presents today for evaluation concerning decreased p.o. intake with associated nausea over the past 3 to 4 weeks. She also states that she has had lower abdominal cramping and reports urinary frequency on today. She also reports that she has had intermittent episodes of diarrhea over the past few days. Also complains of generalized weakness. On assessment she was hemodynamically stable and in no acute distress. Afebrile. Chest was clear station bilaterally. Her abdomen was soft and nondistended however she was tender to palpation in the lower quadrants. No peripheral edema noted. She was otherwise well-appearing. Otherwise exam findings unremarkable. Differential diagnoses include but limited to diverticulitis, colitis, UTI, electrolyte disturbance, gastritis, gastroenteritis, appendicitis, among others. Patient's laboratory has been remarkable for no elevation in WBC at 8.2. Sodium of 131. Creatinine is elevated at 1.3. Lactate at 2.4. She does have 2+ leukocyte esterase, 10-20 WBCs, trace bacteria on urinalysis consistent with UTI in the setting of her symptoms. EKG personally inter by me. Normal sinus rhythm with a rate of [address] bpm[address] No ischemic changes. CT imaging shows multiple gallstones and contracted gallbladder with marked gallbladder wall thickening. Descending and sigmoid diverticulosis without inflammatory changes. On reassessment the patient hemodynamically stable and in no acute distress. I discussed ED workup and current results. She is not significantly tender in the right upper quadrant on repeat examination however I will order a formal right upper quadrant ultrasound to further assess. Care at this time signed out to oncoming provider. DO Adrian: On my assessment of the patient, she still complains of significant abdominal cramping, pain, and nausea. She states that she does not feel comfortable going home. Ultrasound and CT scan demonstrates gallstones with gallbladder wall thickening but no obvious other acute findings concerning for cholecystitis. Cannot exclude cholecystitis based on the thickening and gallstones. She does have pain and tenderness in the right upper quadrant. She has mildly elevated AST but normal bilirubin, lipase, and white count. Ultimately, I feel she would benefit from admission for continued monitoring, pain and nausea control, and surgical consultation in the morning. I had an interactive discussion with the hospitalist who admitted the patient. Patient and family updated to plan of care. Critical Care <Deepak Frost DO - Last Filed: 05/06/24 15:32> Critical Care Time Critical Care Time: No
--- NOTE | 2024-05-06 13:22 | PC.NURSE ---
Pt gone to RAD via wheelchair
[2024-05-06] MEDS: ACETAMINOPHEN 1,000MG/100ML VIAL 1000 MG IV (13:26)
[2024-05-06] MEDS: LACTATED RINGERS 1000ML 1,000 ML 999 ML IV (13:26)
[2024-05-06] MEDS: IOPAMIDOL-370 (76%);100ML BOTTLE 75 ML IV (13:30)
[2024-05-06] MEDS: SODIUM CHLORIDE 0.9% 10ML SYR (RAD ONLY) 10 ML IV (13:30)
--- NOTE | 2024-05-06 13:45 | PC.NURSE ---
PT returned from RAD
[2024-05-06 14:02] LABS: Microscopic, Urine URINE MICROSCOPIC (MICROSCOPIC)
--- NOTE | 2024-05-06 14:02 | PC.NURSE ---
Rounded on pt. Advised she was not having any pain at this time. Call light remains within reach and daughter at BS.
[2024-05-06 14:07] LABS: Appearance,Urine CLEAR (Clear); Bilirubin,Urine Negative (Negative); Blood, Urine Negative (Negative); Color,Urine YELLOW (Yellow); Glucose,Urine (UA) Negative (Negative); Ketones,Urine Negative (Negative); Leukocyte Esterase,Urine 2+ (Negative); Nitrate,Urine Negative (Negative); Protein,Urine Negative (Negative); Specific Gravity, Urine <= 1.005 (1.005-1.030); Urobilinogen,Urine 0.2 EU/dl (0.2)
[2024-05-06 14:18] LABS: Bacteria,Urine Trace /lpf; Yeast,Urine Occasional /lpf
--- NOTE | 2024-05-06 15:09 | US_ITS ---
FINAL REPORT CLINICAL HISTORY: concern for cholecystits -- n/v COMPARISON: None FINDINGS: Sonographic images of the right upper quadrant were obtained. The pancreas is partially obscured.The liver has an unremarkable appearance. The gallbladder is contracted with multiple stones. There is mild gallbladder wall thickening measuring 3 mm. There is no evidence of biliary ductal dilatation.The common duct measures 4mm. Limited images of the right kidney are unremarkable. IMPRESSION: Multiple gallstones in a contracted gallbladder with mild wall thickening. Cholecystitis not excluded. Reviewed, Interpreted and Dictated by Sunny Thompson III, MD Transcribed by Palma Wetzel Authenticated and [facility]
[2024-05-06 17:00] LABS: Reflex Lactic Add Lactic Reflex
[2024-05-06] MEDS: MORPHINE 4MG/ML SYRINGE 4 MG IV (17:26)
--- NOTE | 2024-05-06 17:27 | PC.NURSE ---
call made to clubhouse attendant for bed placement
[2024-05-06 17:43] LABS: Lactic Acid Follow Up (RFLX 1) 1.4 mmol/L (0.7-2.1)
[2024-05-06] MEDS: PIPERACILLIN/TAZO 3.375 GM in 0.9 % SODIUM CHLORIDE 50 ML IV (18:08)
--- NOTE | 2024-05-06 18:26 | PC.NURSE ---
arrived by w/c from ED
--- NOTE | 2024-05-06 18:34 | EXP.HP ---
History of Present Illness *Admission Date: 05/06/24 *Reason for visit:: Abdominal pain, weight loss, decreased appetite x 3 weeks *History of present illness: Really nice patient with past medical history of diabetes, hypertension, CKD. Patient presents complaining of abdominal discomfort, weight loss, weakness, decreased p.o. intake, nausea, dry heaves x 3 weeks. Patient brought to hospital by her daughter. Daughter states that she forced patient to come to hospital because her symptoms were getting better. Complains of left hand and numbness starting today. Also complains of chest burning for last 3 weeks. States she suffers from LLQ, RLQ crampy type sensation, intermittent, better with flatus/walking, worse after sleep. Patient states lower quadrant abdominal discomfort has kept her from eating over past 3 weeks. Patient and patient's daughter note 13 pound weight loss, diarrhea intermittently over past 3 weeks. Denies injuries, known sick contacts, fevers, chills. CT abdomen/pelvis done in emergency room shows multiple gallstones. [facility] Disclaimer: The information contained in this section may have been updated after the patient was seen, as this information can be updated by other users. Medical History (Updated 05/06/24 @ 18:48 by Ricardo Carter MD) Brain aneurysm Chronic kidney disease Hyperlipemia Hypertension Diabetes mellitus Surgical History (Updated 05/06/24 @ 18:44 by Kianna Vera RN) Previous back surgery Family History (Updated 05/06/24 @ 18:44 by Kianna Vera RN) Other Diabetes Hypertension Social History Smoking Status: Never smoker alcohol intake: never current occupational status: retired Travel in the last 8 weeks: None Review of Systems Review of Systems Review of systems:: pertinent systems reviewed and negative unless documented below Constitutional Constitutional: Reports system reviewed and no additional complaints, except as documented Meds Home Medications and Allergies Home Medications ?Medication ?Instructions ?Recorded ?Confirmed ?Type alendronate 70 mg tablet 70 mg PO WEEKLY 05/06/24 05/06/24 History carvedilol 12.5 mg tablet 12.5 mg PO BID 05/06/24 05/06/24 History levothyroxine 50 mcg tablet 50 mcg PO DAILY 05/06/24 05/06/24 History lisinopril 2.5 mg tablet 2.5 mg PO DAILY 05/06/24 05/06/24 History lovastatin 20 mg tablet 20 mg PO DAILY 05/06/24 05/06/24 History metformin 500 mg tablet 500 mg PO BID 05/06/24 05/06/24 History New Prescriptions to Start Prescriptions: Allergies Allergy/AdvReac Type Severity Reaction Status Date / Time sulfamethoxazole Allergy Verified 03/25/24 12:50 [From Bactrim] trimethoprim [From Bactrim] Allergy Verified 03/25/24 12:50 Exam Data for Last 24 hours Vital signs and Labs for Last 24 Hours: Temp Pulse Resp BP Pulse Ox O2 Del Method 98.0 F 86 16 183/92 H 99 Room Air 05/06/24 18:33 05/06/24 18:33 05/06/24 18:33 05/06/24 18:33 05/06/24 17:23 05/06/24 18:33 Laboratory Results - last 24 hr 05/06/24 12:45: WBC 8.2, RBC 4.03 L, Hgb 12.6, Hct 38.6, MCV 95.7, MCH 31.3 H, MCHC 32.7, RDW 15.0, Plt Count 226, MPV 7.9, Neut % (Auto) 74.0, Lymph % (Auto) 18.5, [place] % (Auto) 5.8, Eos % (Auto) 0.8, Baso % (Auto) 0.8, Neut # (Auto) 6.1, Lymph # (Auto) 1.5, [place] # (Auto) 0.5, Eos # (Auto) 0.1, Baso # (Auto) 0.1, Sodium 131 L, Potassium 5.1, Chloride 96 L, Carbon Dioxide 29, Anion Gap 11.1, BUN 16, Creatinine 1.30 H, Estimated Creat Clear 34, Estimated GFR 41 L, Est GFR ( Amer) 49 L, Glucose 135 H, Lactate 2.4 H, Calcium 9.8, Total Bilirubin 1.0, AST 37 H, ALT 52, Alkaline Phosphatase 35 L, Total Protein 7.0, Albumin 4.4, Globulin 2.6, Albumin/Globulin Ratio 1.7, Lipase 293 05/06/24 13:41: Urine Color Yellow, Urine Appearance Clear, Urine pH 6.0, Ur Specific [place] <= 1.005, Urine Protein Negative, Urine Glucose (UA) Negative, Urine Ketones Negative, Urine Blood Negative, Urine Nitrate Negative, Urine Bilirubin Negative, Urine Urobilinogen 0.2, Ur Leukocyte Esterase 2+ A, Urine RBC None, Urine WBC 10-20, Ur Squamous Epith Cells 5-10, Urine Bacteria Trace, Urine Yeast Occasional 05/06/24 17:23: Lactate 1.4 I & O for Last 24 hours: Intake & Output 05/03/24 05/04/24 05/05/24 05/06/24 23:59 23:59 23:59 23:59 Weight 52.163 kg Microbiology Reports for the Last 24 Hours: Blood cultures ordered by Dr. Carter at time of admission. Radiology Reports for the Last 24 Hours: 05/06/24 RUQ U/S IMPRESSION: Multiple gallstones in a contracted gallbladder with mild wall thickening. Cholecystitis not excluded. 05/26 CT abdomen/pelvis IMPRESSION: Multiple gallstones are present in a contracted gallbladder with marked gallbladder wall thickening, and cholecystitis is not excluded. No biliary ductal dilatation is present. Descending and sigmoid diverticulosis without evidence of acute inflammatory change. Prior L1 kyphoplasty. Constitutional Constitutional: moderate distress, thin and chronically ill appearing *Routine HEENT Exam Head: Present normocephalic Eye: Present EOMI ENT: Present mucous membranes dry *Routine Neck Exam Neck: Present supple and full ROM *Routine Respiratory Exam Respiratory: Present CTA bilaterally and normal respiratory effort *Routine Cardiovascular Exam Cardiovascular: Present tachycardia *Routine Abdominal Exam Abdominal: Present soft, tenderness and guarding; Absent rebound Comments: TTP bilateral lower quadrant without rebound. Voluntary guarding bilateral lower quadrants. Suprapubic tenderness to palpation. No CVA tenderness to palpation. *Routine Rectal Exam Rectal:: deferred *Routine Genitalia Exam Genitalia:: deferred *Routine Extremities Exam Extremities: Present full ROM and normal capillary refill *Routine Skin Exam Skin: Present intact and dry *Routine Neurological Exam Neurological: Present alert, oriented X3 and CN II-XII intact Assessment and Plan *Assessment and plan (1) Generalized weakness: Status: Acute Category: Medical Code(s): R53.1 - Weakness (2) Abdominal pain, lower: Status: Acute Category: Medical Code(s): R10.30 - Lower abdominal pain, unspecified (3) Gallstones: Status: Acute Category: Medical Code(s): K80.20 - Calculus of gallbladder without cholecystitis without obstruction (4) UTI (urinary tract infection): Status: Acute Category: Medical Code(s): N39.0 - Urinary tract infection, site not specified (5) Abdominal pain: Status: Acute Category: Medical Code(s): R10.9 - Unspecified abdominal pain (6) Chronic kidney disease: Status: Acute Category: Medical Code(s): N18.9 - Chronic kidney disease, unspecified (7) Hypertension: Status: Acute Category: Medical Code(s): I10 - Essential (primary) hypertension (8) Diabetes mellitus: Status: Acute Category: Medical Code(s): E11.9 - Type 2 diabetes mellitus without complications Plan 68-year-old patient with past medical history of diabetes, hypertension, CKD presents with abdominal pain, weight loss, decreased p.o. intake, chest burning, abdominal cramping, nausea, dry heaves for [address] abdomen/pelvis done in emergency room during admission showing multiple gallstones. Abdominal pain acute cholecystitis versus UTI versus diabetic gastroparesis: ? CT abdomen/pelvis showed no SBO/ileus. Multiple gallstones noted on CT abdomen/pelvis so worried about possible acute cholecystitis. Start IV Zosyn, consult surgery for evaluation. As needed antiemetics and pain meds. ? If symptoms not improved after acute cholecystitis workup, will consider gastric emptying study for diabetic gastroparesis evaluation. Diabetes: Sign scale insulin, ACHS Accu-Cheks Dehydration due to suboptimal p.o. intake: Start normal saline 150 cc/h with 20 mill equivalents of K x 2 L. Hypertension: Continue home management CKD: Cautious fluid management throughout hospitalization PPx: SCDs in case surgery required CODE STATUS full FEN: Start with diabetic diet and adjust as needed, correct electrolytes as needed Case discussed with nursing staff, patient, and patient's daughter by Dr. Carter at time of admission 05/26
[2024-05-06 18:59] LABS: Lactic Acid 1.1 mmol/L (0.7-2.1)
--- NOTE | 2024-05-06 19:01 | PC.NURSE ---
Per Dr Carter, dc nsw/20K and switch to ns @100ml/hr. Order faxed to night pharmacy.
--- NOTE | 2024-05-06 19:01 | PC.NURSE ---
pt just arrived from ER. vss. lungs clear. bowel sounds active. pt expresses concern for recent weight loss. daughter at bedside. call light in reach and bed in low and locked position.
[2024-05-06 19:15] LABS: C-Reactive Protein 0.3 mg/L (0-4)
[2024-05-06] MEDS: 0.9 % SODIUM CHLORIDE 1000ML 1,000 ML 75 ML IV (19:17)
[2024-05-06 19:33] LABS: Procalcitonin 0.094 ng/mL (0.0-2.0)
[2024-05-06 20:22] LABS: POC Glucose,Bedside 95 (70-110)
[2024-05-07 04:00] VITALS: BP 125/63; PULSE 86; RESP 16; TEMP 37; O2SAT 98; BMI 21.9
[2024-05-07] MEDS: PIPERACILLIN/TAZO 4.5 GM in 0.9 % SODIUM CHLORIDE 100 ML IV ×5 (06:02→23:44)
--- NOTE | 2024-05-07 06:06 | PC.NURSE ---
Patient is alert and oriented x4. Patient was observed to be resting with eyes closed, respirations even and unlabored, and no apparent distress through the night. Patient voiced that she has not been able to rest well for a few days due to her periodic abdominal pain. She also voiced her concerns about losing weight over the past couple weeks with no appetite. Patient's lung sounds were clear and her bowel sounds were active upon auscultation. Patient did report some abdominal discomfort in which got better after she passed some gas; however, she has not had a bowel movement this shift. She has gotten up to the bathroom to void with standby assist a couple times this shift. Patient has also complained of a dry throat and belching. Patient has remained NPO this shift due to ordered surgery consult for this morning. Patient does not have any further complaints at this time. Patient received scheduled antibiotics per OCT and currently has normal saline infusing at 75 mL/hr. She has not requested any pain medication or nausea medication this shift. Patient's FSBS have required no insulin coverage; FSBS at 21:00 was 95 and FSBS at 06:00 was 101. No acute changes were noted thus far. Patient is currently resting supine in bed. has remained at bedside throughout the night. Patient refused to wear SCDs for the night due to stated concerns of not being able to sleep from the sensation. Call light within reach. Patient has a pill box of home medications locked in her room drawer.
[2024-05-07 06:13] LABS: POC Glucose,Bedside 101 (70-110)
--- NOTE | 2024-05-07 06:28 | PC.NURSE ---
Dr Malone entered patient's room at this time.
[2024-05-07 06:44] LABS: Alanine Aminotransferase 40 U/L (12-78); Albumin Level 3.3 g/dl (3.5-5.0); Albumin/Globulin Ratio 1.4 (1.1-1.8); Alkaline Phosphatase 29 U/L (38-126); Anion Gap 7.6 mEq/L (5-15); Aspartate Amino Transferase 32 U/L (14-36); Blood Urea Nitrogen 15 mg/dl (7-17); Calcium 8.8 mg/dl (8.4-10.2); Carbon Dioxide 28 mmol/L (22.0-30.0); Chloride 102 mmol/L (98-107); Creatinine Clearance Estimated 35 mL/min (50-200); Estimated Glomerular Filt Rate 37 ml/min (>60); GFR (African American) 45 ML/MIN (>60); Globulin 2.4 g/dL (1.3-3.2); Glucose 95 mg/dl (74-100); Potassium 4.6 mmoL/L (3.5-5.1); Sodium 133 mmol/L (136-145); Total Protein,Serum 5.7 g/dl (6.3-8.2)
[2024-05-07 06:46] LABS: Basophils % 0.6 % (0.1-2.0); Eosinophils # 0.1 K/mm3 (0.0-0.4); Eosinophils % 1.7 % (0.1-12.0); Hematocrit 33.8 % (37.0-47.0); Lymphocytes # 1.5 K/mm3 (0.7-4.5); Lymphocytes % 25.9 % (10-50); Mean Corpuscular HGB Conc 32.7 g/dL (31.8-35.4); Mean Corpuscular Hemoglobin 31.9 pg (27.0-31.2); Mean Corpuscular Volume 97.3 fl (81-99); Monocytes # 0.3 K/mm3 (0.1-1.0); Monocytes % 5.3 % (1.7-9.3); Neutrophils # 3.8 K/mm3 (1.8-7.8); Neutrophils % 66.5 % (37.0-80.0); Platelet Count 179 K/mm3 (142-424); Red Blood Count 3.47 M/mm3 (4.20-5.40); Red Cell Distribution Width 15.4 % (11.5-17.5); White Blood Count 5.8 K/mm3 (4.8-10.8)
[2024-05-07 06:50] LABS: C-Reactive Protein 0.5 mg/L (0-4)
--- NOTE | 2024-05-07 06:58 | PC.NURSE ---
Lab called at this time to report a critical magnesium value of 1 for the patient. Shyann MARTINEZ was informed.
[2024-05-07] MEDS: MAGNESIUM SULFATE IN WATER 2 GM/50 ML PIGGYBACK IV (07:08)
[2024-05-07 07:18] LABS: Hemoglobin 11.1 g/dL (12.2-16.2)
--- NOTE | 2024-05-07 07:27 | HMH.PHAINT1 ---
Pharmacy Intervention Comments: MEDICATION RECONCILIATION COMPLETED ON PATIENT USING EXTERNAL FILL HISTORY FROM PHARMACY AND [facility] REPORT. -FUNMILAYO ARNDT, NICOLLED
[2024-05-07 07:32] LABS: Procalcitonin 0.106 ng/mL (0.0-2.0)
[2024-05-07 08:00] VITALS: BP 96/55; PULSE 88; RESP 18; TEMP 36.6; O2SAT 97
--- NOTE | 2024-05-07 10:26 | P.CONS_ITS ---
History of Present Illness *Admission Date: 05/06/24 *Reason for visit:: Possible gallbladder disease *History of present illness: This is a 68-year-old female seen in consultation from the primary service after being mated for evaluation and management of weakness, poor appetite, nausea, and abdominal pain. She describes crampy abdominal pain over the past 2-3 weeks. She does not complain of isolated right upper quadrant pain. She does not believe her symptoms are definitively associated with food intake. No fevers. No jaundice. Forwarded from admission H&P: Really nice patient with past medical history of diabetes, hypertension, CKD. Patient presents complaining of abdominal discomfort, weight loss, weakness, decreased p.o. intake, nausea, dry heaves x 3 weeks. Patient brought to hospital by her daughter. Daughter states that she forced patient to come to hospital because her symptoms were getting better. Complains of left hand and numbness starting today. Also complains of chest burning for last 3 weeks. States she suffers from LLQ, RLQ crampy type sensation, intermittent, better with flatus/walking, worse after sleep. Patient states lower quadrant abdominal discomfort has kept her from eating over past 3 weeks. Patient and patient's daughter note 13 pound weight loss, diarrhea intermittently over past 3 weeks. Denies injuries, known sick contacts, fevers, chills. CT abdomen/pelvis done in emergency room shows multiple gallstones. [facility] Disclaimer: The information contained in this section may have been updated after the patient was seen, as this information can be updated by other users. Medical History (Updated 05/07/24 @ 10:29 by Yifan Malone MD) Brain aneurysm Chronic kidney disease Hyperlipemia Hypertension Diabetes mellitus Surgical History (Updated 05/06/24 @ 18:44 by Kianna Vera, NEGRITA) Previous back surgery Family History (Updated 05/06/24 @ 18:44 by Kianna Vera RN) Diabetes Hypertension Social History Smoking Status: Never smoker alcohol intake: never current occupational status: retired Travel in the last 8 weeks: None Meds Home Medications and Allergies Home Medications ?Medication ?Instructions ?Recorded ?Confirmed ?Type alendronate 70 mg tablet 70 mg PO FR 05/06/24 05/07/24 History carvedilol 12.5 mg tablet 12.5 mg PO BID 05/06/24 05/06/24 History levothyroxine 50 mcg tablet 50 mcg PO DAILY 05/06/24 05/06/24 History lisinopril 2.5 mg tablet 2.5 mg PO DAILY 05/06/24 05/06/24 History lovastatin 20 mg tablet 20 mg PO HS 05/06/24 05/07/24 History metformin 500 mg tablet 500 mg PO BID 05/06/24 05/06/24 History dicyclomine 10 mg capsule 10 mg PO BIDP PRN Abdominal Pain 05/07/24 05/07/24 History duloxetine 30 mg capsule,delayed 30 mg PO DAILY 05/07/24 05/07/24 History release gabapentin 300 mg capsule 300 mg PO TID 05/07/24 05/07/24 History ondansetron 4 mg disintegrating 4 mg PO Q6HP PRN Nausea And 05/07/24 05/07/24 History tablet Vomiting New Prescriptions to Start Prescriptions: Allergies Allergy/AdvReac Type Severity Reaction Status Date / Time sulfamethoxazole Allergy Verified 03/25/24 12:50 [From Bactrim] trimethoprim [From Bactrim] Allergy Verified 03/25/24 12:50 Exam (Inpt) Vital signs and Labs for Last 24 Hours: Temp Pulse Resp BP Pulse Ox O2 Del Method 98 F 88 18 96/55 L 97 Room Air 05/07/24 08:00 05/07/24 08:00 05/07/24 08:00 05/07/24 08:00 05/07/24 08:00 05/07/24 09:00 Laboratory Results - last 24 hr 05/06/24 12:45: WBC 8.2, RBC 4.03 L, Hgb 12.6, Hct 38.6, MCV 95.7, MCH 31.3 H, MCHC 32.7, RDW 15.0, Plt Count 226, MPV 7.9, Neut % (Auto) 74.0, Lymph % (Auto) 18.5, [place] % (Auto) 5.8, Eos % (Auto) 0.8, Baso % (Auto) 0.8, Neut # (Auto) 6.1, Lymph # (Auto) 1.5, [place] # (Auto) 0.5, Eos # (Auto) 0.1, Baso # (Auto) 0.1, S odium 131 L, Potassium 5.1, Chloride 96 L, Carbon Dioxide 29, Anion Gap 11.1, BUN 16, Creatinine 1.30 H, Estimated Creat Clear 34, Estimated GFR 41 L, Est GFR ( Amer) 49 L, Glucose 135 H, Lactate 2.4 H, Calcium 9.8, Total Bilirubin 1.0, AST 37 H, ALT 52, Alkaline Phosphatase 35 L, Total Protein 7.0, Albumin 4.4, Globulin 2.6, Albumin/Globulin Ratio 1.7, Lipase 293 05/06/24 13:41: Urine Color Yellow, Urine Appearance Clear, Urine pH 6.0, Ur Specific [place] <= 1.005, Urine Protein Negative, Urine Glucose (UA) Negative, Urine Ketones Negative, Urine Blood Negative, Urine Nitrate Negative, Urine Bilirubin Negative, Urine Urobilinogen 0.2, Ur Leukocyte Esterase 2+ A, Urine RBC None, Urine WBC 10-20, Ur Squamous Epith Cells 5-10, Urine Bacteria Trace, Urine Yeast Occasional 05/06/24 17:23: Lactate 1.4 05/06/24 18:40: Lactate 1.1 05/06/24 18:43: C-Reactive Protein 0.3, Procalcitonin 0.094 05/06/24 20:10: POC Glucose 95 05/07/24 05:46: WBC 5.8 D, RBC 3.47 L, Hgb 11.1 L D, Hct 33.8 L, MCV 97.3, MCH 31.9 H, MCHC 32.7, RDW 15.4, Plt Count 179, MPV 8.0, Neut % (Auto) 66.5, Lymph % (Auto) 25.9, [place] % (Auto) 5.3, Eos % (Auto) 1.7, Baso % (Auto) 0.6, Neut # (Auto) 3.8, Lymph # (Auto) 1.5, [place] # (Auto) 0.3, Eos # (Auto) 0.1, Baso # (Auto) 0.0, Sodium 133 L, Potassium 4.6, Chloride 102, Carbon Dioxide 28, Anion Gap 7.6, BUN 15, Creatinine 1.40 H, Estimated Creat Clear 35, Estimated GFR 37 L , Est GFR ( Amer) 45 L, Glucose 95 D, Calcium 8.8, Magnesium 1.0 L, Total Bilirubin 1.0, AST 32, ALT 40, Alkaline Phosphatase 29 L, C-Reactive Protein 0.5 D, Total Protein 5.7 L, Albumin 3.3 L D, Globulin 2.4, Albumin/Globulin Ratio 1.4, Procalcitonin 0.106 05/07/24 06:01: POC Glucose 101 I & O for Labs for Last 24 Hours: Intake & Output 05/04/24 05/05/24 05/06/24 05/07/24 11:59 11:59 11:59 11:59 Intake Total 244 / 244 Output Total 0 / 0 Balance 244 / 244 Weight 128 lb 3.2 oz Constitutional: no acute distress Respiratory: Absent respiratory distress Cardiac: Absent Tachycardia GI: Present soft Comments:: Mild tenderness to deep palpation globally. No focal right upper quadrant tenderness. Some increased tenderness along the bilateral lower quadrant/pelvis (patient states that she needs to void) Results Labs 05/07/24 05:46 05/07/24 05:46 Labs: Laboratory Results - last 24 hr 05/06/24 12:45: WBC 8.2, RBC 4.03 L, Hgb 12.6, Hct 38.6, MCV 95.7, MCH 31.3 H, MCHC 32.7, RDW 15.0, Plt Count 226, MPV 7.9, Neut % (Auto) 74.0, Lymph % (Auto) 18.5, [place] % (Auto) 5.8, Eos % (Auto) 0.8, Baso % (Auto) 0.8, Neut # (Auto) 6.1, Lymph # (Auto) 1.5, [place] # (Auto) 0.5, Eos # (Auto) 0.1, Baso # (Auto) 0.1, S odium 131 L, Potassium 5.1, Chloride 96 L, Carbon Dioxide 29, Anion Gap 11.1, BUN 16, Creatinine 1.30 H, Estimated Creat Clear 34, Estimated GFR 41 L, Est GFR ( Amer) 49 L, Glucose 135 H, Lactate 2.4 H, Calcium 9.8, Total Bilirubin 1.0, AST 37 H, ALT 52, Alkaline Phosphatase 35 L, Total Protein 7.0, Albumin 4.4, Globulin 2.6, Albumin/Globulin Ratio 1.7, Lipase 293 05/06/24 13:41: Urine Color Yellow, Urine Appearance Clear, Urine pH 6.0, Ur Specific [place] <= 1.005, Urine Protein Negative, Urine Glucose (UA) Negative, Urine Ketones Negative, Urine Blood Negative, Urine Nitrate Negative, Urine Bilirubin Negative, Urine Urobilinogen 0.2, Ur Leukocyte Esterase 2+ A, Urine RBC None, Urine WBC 10-20, Ur Squamous Epith Cells 5-10, Urine Bacteria Trace, Urine Yeast Occasional 05/06/24 17:23: Lactate 1.4 05/06/24 18:40: Lactate 1.1 05/06/24 18:43: C-Reactive Protein 0.3, Procalcitonin 0.094 05/06/24 20:10: POC Glucose 95 05/07/24 05:46: WBC 5.8 D, RBC 3.47 L, Hgb 11.1 L D, Hct 33.8 L, MCV 97.3, MCH 31.9 H, MCHC 32.7, RDW 15.4, Plt Count 179, MPV 8.0, Neut % (Auto) 66.5, Lymph % (Auto) 25.9, [place] % (Auto) 5.3, Eos % (Auto) 1.7, Baso % (Auto) 0.6, Neut # (Auto) 3.8, Lymph # (Auto) 1.5, [place] # (Auto) 0.3, Eos # (Auto) 0.1, Baso # (Auto) 0.0, Sodium 133 L, Potassium 4.6, Chloride 102, Carbon Dioxide 28, Anion Gap 7.6, BUN 15, Creatinine 1.40 H, Estimated Creat Clear 35, Estimated GFR 37 L , Est GFR ( Amer) 45 L, Glucose 95 D, Calcium 8.8, Magnesium 1.0 L, Total Bilirubin 1.0, AST 32, ALT 40, Alkaline Phosphatase 29 L, C-Reactive Protein 0.5 D, Total Protein 5.7 L, Albumin 3.3 L D, Globulin 2.4, Albumin/Globulin Ratio 1.4, Procalcitonin 0.106 05/07/24 06:01: POC Glucose [address] scan - abdomen: report reviewed and image reviewed CT scan - pelvis: report reviewed and image reviewed US - abdomen: report reviewed and image reviewed Assessment and Plan *Assessment and plan (1) Gallstones: Status: Acute Category: Medical Code(s): K80.20 - Calculus of gallbladder without cholecystitis without obstruction Plan: Gallstones and 3 mm gallbladder wall of undetermined significance. The patient does not exhibit pathognomonic findings of biliary disease; however, gallbladder as the etiology (partial) cannot be completely ruled out . I have had a long discussion with the patient and her family concerning the risks and benefits of cholecystectomy. I have had a long discussion with the patient concerning the possibility that her symptoms are not directly related to biliary disease. She states that she is scared . She prefers to not undergo surgery unless absolutely necessary; however, she remains overall discouraged secondary to just not getting better . (2) Abdominal pain: Status: Acute Qualifiers: Abdominal location: unspecified location Qualified Code(s): R10.9 - Unspecified abdominal pain Category: Medical Code(s): R10.9 - Unspecified abdominal pain (3) Chronic kidney disease: Status: Acute Qualifiers: Chronic kidney disease stage: unspecified stage Qualified Code(s): N 18.9 - Chronic kidney disease, unspecified Category: Medical Code(s): N18.9 - Chronic kidney disease, unspecified (4) Generalized weakness: Status: Acute Category: Medical Code(s): R53.1 - Weakness (5) Abdominal pain, lower: Status: Acute Category: Medical Code(s): R10.30 - Lower abdominal pain, unspecified (6) UTI (urinary tract infection): Status: Acute Qualifiers: Urinary tract infection type: site unspecified Hematuria presence: w ithout hematuria Qualified Code(s): N39.0 - Urinary tract infection, site not specified Category: Medical Code(s): N39.0 - Urinary tract infection, site not specified Plan Initially proceed with gastric emptying scan as discussed with the primary service. Discussion with regard to cholecystectomy will be ongoing.
[2024-05-07] MEDS: PANTOPRAZOLE 40MG TABLET 40 MG PO (11:45)
[2024-05-07] MEDS: 0.9 % SODIUM CHLORIDE 1000ML 1,000 ML 100 ML IV (11:45)
[2024-05-07 12:06] LABS: POC Glucose,Bedside 125 (70-110)
--- NOTE | 2024-05-07 12:31 | DIET.NUTRFU ---
during rounds provider advanced to bland diet and rescheduled the gastric emptying test for tomorrow, NPO after midnight. Also recommended supplements onec symptoms subside for replenishing her system, reportv 13# wt loss.,
--- NOTE | 2024-05-07 12:37 | DIET.NUTRFU ---
during rounds provider advanced to bland diet and rescheduled the gastric emptying test for tomorrow, NPO after midnight. Also recommended supplements once symptoms subside for replenishing her system, reports 13# wt loss.
[2024-05-07] MEDS: hydrOXYzine pamoate 25MG CAPSULE 25 MG PO (13:02)
[2024-05-07 14:35] VITALS: BMI 21.8
[2024-05-07] MEDS: ACETAMINOPHEN 325MG TAB 650 MG PO (15:37)
[2024-05-07 16:00] VITALS: BP 116/68; PULSE 85; RESP 18; TEMP 37.1; O2SAT 98
[2024-05-07 16:13] LABS: POC Glucose,Bedside 123 (70-110)
--- NOTE | 2024-05-07 18:34 | PC.NURSE ---
pt has done well this shift. no c/o of n/v/p. npo after midnight and pt is aware. pt was anxious at beginning of shift, treated per mar and so fa showing less anxiety. at bs and pt is walking around room. staff has encouraged eating weather she feels like it it not, atleast give it and try and pt has done well with meals, even stating its weird, at home i was sick, and since nathalia been here i'm not . alexandr sorensen reach no needs at this time
--- NOTE | 2024-05-07 18:41 | P.PN_ITS ---
Subjective *Date: 05/07/24 *Time: 18:41 Interval history: Patient slightly anxious, so hydroxyzine as needed ordered. Patient able to eat small bites of breakfast this a.m. Patient states abdominal pain slightly decreased versus yesterday exam. Denies fever/chills overnight. Medical Exam Vital signs and Labs for Last 24 Hours: Vital Signs Temp Pulse Resp BP Pulse Ox O2 Del Method 05/07/24 18:17 Room Air 05/07/24 17:00 Room Air 05/07/24 16:00 98.7 F 85 18 116/68 98 Room Air 05/07/24 15:00 Room Air 05/07/24 13:00 Room Air 05/07/24 11:00 Room Air 05/07/24 09:00 Room Air 05/07/24 08:00 Room Air 05/07/24 08:00 98 F 88 18 96/55 L 97 Room Air 05/07/24 06:50 Room Air 05/07/24 05:00 Room Air 05/07/24 04:00 98.6 F 86 16 125/63 98 Room Air 05/07/24 03:00 Room Air 05/07/24 01:00 Room Air 05/06/24 23:00 Room Air 05/06/24 21:00 Room Air 05/06/24 20:00 74 16 97 Room Air 05/06/24 20:00 98.5 F 76 18 109/58 L 97 Room Air 05/06/24 19:30 97.8 F 74 16 158/80 H 97 Room Air 05/06/24 19:00 Room Air 05/06/24 18:59 Room Air Intake and Output 05/07/24 05/07/24 05/07/24 07:59 15:59 23:59 Intake Total 244 / 514 270 / 514 Output Total 0 / 0 0 / 0 Balance 244 / 514 270 / 514 Intake: Intake, Oral Amount 270 / 270 Intake, Total IV Amount 244 / 244 0.9 % Sodium Chloride 1000ML 1, 244 / 244 000 ml @ 75 mls/hr IV .[id number] [facility] Rx#:[id number] Output: Output, Urine Amount 0 / 0 0 / 0 Other: Number of Unmeasured Voids 1 1 Weight 58.151 kg 58 kg Patient Weight 05/07/24 23:59 Weight 58 kg Laboratory Results - last 24 hr 05/06/24 18:40: Lactate 1.1 05/06/24 18:43: C-Reactive Protein 0.3, Procalcitonin 0.094 05/06/24 20:10: POC Glucose 95 05/07/24 05:46: WBC 5.8 D, RBC 3.47 L, Hgb 11.1 L D, Hct 33.8 L, MCV 97.3, MCH 31.9 H, MCHC 32.7, RDW 15.4, Plt Count 179, MPV 8.0, Neut % (Auto) 66.5, Lymph % (Auto) 25.9, [place] % (Auto) 5.3, Eos % (Auto) 1.7, Baso % (Auto) 0.6, Neut # (Auto) 3.8, Lymph # (Auto) 1.5, [place] # (Auto) 0.3, Eos # (Auto) 0.1, Baso # (Auto) 0.0, Sodium 133 L, Potassium 4.6, Chloride 102, Carbon Dioxide 28, Anion Gap 7.6, BUN 15, Creatinine 1.40 H, Estimated Creat Clear 35, Estimated GFR 37 L , Est GFR ( Amer) 45 L, Glucose 95 D, Calcium 8.8, Magnesium 1.0 L, Total Bilirubin 1.0, AST 32, ALT 40, Alkaline Phosphatase 29 L, C-Reactive Protein 0.5 D, Total Protein 5.7 L, Albumin 3.3 L D, Globulin 2.4, Albumin/Globulin Ratio 1.4, Procalcitonin 0.106 05/07/24 06:01: POC Glucose 101 05/07/24 11:48: POC Glucose 125 H 05/07/24 15:35: POC Glucose 123 H I & O for Labs for Last 24 Hours: Intake & Output 05/04/24 05/05/24 05/06/24 05/07/24 23:59 23:59 23:59 23:59 Intake Total 514 / 514 Output Total 0 / 0 0 / 0 Balance 0 / 244 514 / 514 Weight 56.841 kg 58 kg Constitutional: Present no acute distress, thin, cachectic and chronically ill appearing Head: Present atraumatic and normocephalic ENT: Present normal exam and normal oropharynx Neck: Present normal inspection Respiratory: Present CTA bilaterally and normal respiratory effort Cardiac: Present Reg Rate and Rhythm GI: Present soft, tenderness and normal bowel sounds Rectal (female): Present deferred (female): Present deferred Extremities: Present normal inspection and full ROM Skin: Present intact Assessment and Plan *Assessment and plan (1) Chronic kidney disease: Status: Acute Qualifiers: Chronic kidney disease stage: unspecified stage Qualified Code(s): N18.9 - Chronic kidney disease, unspecified Category: Medical Code(s): N18.9 - Chronic kidney disease, unspecified (2) Hypertension: Status: Acute Category: Medical Code(s): I10 - Essential (primary) hypertension (3) Diabetes mellitus: Status: Acute Category: Medical Code(s): E11.9 - Type 2 diabetes mellitus without complications (4) Abdominal pain: Status: Acute Qualifiers: Abdominal location: unspecified location Qualified Code(s): R10.9 - Unspecified abdominal pain Category: Medical Code(s): R10.9 - Unspecified abdominal pain (5) Gallstones: Status: Acute Category: Medical Code(s): K80.20 - Calculus of gallbladder without cholecystitis without obstruction Plan 68-year-old patient with past medical history of diabetes, hypertension, CKD presents with abdominal pain, weight loss, decreased p.o. intake, chest burning, abdominal cramping, nausea, dry heaves for [address] abdomen/pelvis done in emergency room during admission showing multiple gallstones. Abdominal pain UTI versus diabetic gastroparesis r/o acute cholecystitis: ?05/07 appreciate general surgery consultation! No indication for emergent cholecystectomy. Continue IV antibiotics. Patient's abdominal discomfort mostly bilateral lower quadrant/bladder region so very atypical for acute cholecystitis. Gastric emptying study ordered today, but cannot be performed till tomorrow given patient had small breakfast this a.m. Continue IV antibiotics. ? CT abdomen/pelvis showed no SBO/ileus. Multiple gallstones noted on CT abdomen/pelvis so worried about possible acute cholecystitis. Start IV Zosyn, consult surgery for evaluation. As needed antiemetics and pain meds. ? If symptoms not improved after acute cholecystitis workup, will consider gastric emptying study for diabetic gastroparesis evaluation. Anxiety: Hydroxyzine as needed. Diabetes: Sign scale insulin, ACHS Accu-Cheks Dehydration due to suboptimal p.o. intake: Start normal saline 150 cc/h with 20 mill equivalents of K x 2 L. Malnutrition: ? 05/07 working with nutrition to improve patient's daily eating habits. Patient's eating patterns impure improved versus previous days per family reports. Hypertension: Continue home management CKD: Cautious fluid management throughout hospitalization PPx: SCDs in case surgery required CODE STATUS full FEN: [place] diet and adjust per patient's request, correct electrolytes as needed Case discussed with nursing staff, patient, and patient's daughter by Dr. Carter at time of admission 05/26
[2024-05-07] MEDS: LISINOPRIL 2.5MG TABLET 2.5 MG PO (19:04)
[2024-05-07 20:00] VITALS: O2SAT 97
[2024-05-07 21:00] LABS: POC Glucose,Bedside 170 (70-110)
[2024-05-07] MEDS: humaLOG 100 UNITS/ML 10ML VIAL (SSI) SQ (21:08)
[2024-05-07] MEDS: CARVEDILOL 12.5MG TABLET 12.5 MG PO (21:08)
[2024-05-07] MEDS: GABAPENTIN 300MG CAPSULE 300 MG PO (21:08)
[2024-05-08] MEDS: 0.9 % SODIUM CHLORIDE 1000ML 1,000 ML 100 ML IV (01:58)
[2024-05-08 04:00] VITALS: BMI 22.2
[2024-05-08] MEDS: PIPERACILLIN/TAZO 4.5 GM in 0.9 % SODIUM CHLORIDE 100 ML IV ×2 (05:39→13:33)
[2024-05-08 05:49] LABS: POC Glucose,Bedside 94 (70-110)
[2024-05-08 07:30] LABS: Basophils % 0.5 % (0.1-2.0); Eosinophils # 0.1 K/mm3 (0.0-0.4); Eosinophils % 1.8 % (0.1-12.0); Hematocrit 31.9 % (37.0-47.0); Hemoglobin 10.4 g/dL (12.2-16.2); Lymphocytes # 1.1 K/mm3 (0.7-4.5); Lymphocytes % 22.5 % (10-50); Mean Corpuscular HGB Conc 32.6 g/dL (31.8-35.4); Mean Corpuscular Hemoglobin 32.3 pg (27.0-31.2); Mean Corpuscular Volume 98.9 fl (81-99); Mean Platelet Volume 7.9 fl (7.4-10.4); Monocytes # 0.3 K/mm3 (0.1-1.0); Neutrophils # 3.5 K/mm3 (1.8-7.8); Neutrophils % 69.1 % (37.0-80.0); Platelet Count 169 K/mm3 (142-424); Red Blood Count 3.23 M/mm3 (4.20-5.40); Red Cell Distribution Width 15.3 % (11.5-17.5); White Blood Count 5.1 K/mm3 (4.8-10.8)
[2024-05-08 07:32] LABS: Alanine Aminotransferase 41 U/L (12-78); Albumin Level 2.9 g/dl (3.5-5.0); Albumin/Globulin Ratio 1.2 (1.1-1.8); Alkaline Phosphatase 27 U/L (38-126); Anion Gap 6.8 mEq/L (5-15); Aspartate Amino Transferase 32 U/L (14-36); Bilirubin,Total 0.9 mg/dl (0.2-1.3); Blood Urea Nitrogen 14 mg/dl (7-17); Carbon Dioxide 26 mmol/L (22.0-30.0); Chloride 109 mmol/L (98-107); Creatinine Clearance Estimated 38 mL/min (50-200); Estimated Glomerular Filt Rate 41 ml/min (>60); GFR (African American) 49 ML/MIN (>60); Globulin 2.4 g/dL (1.3-3.2); Glucose 93 mg/dl (74-100); Magnesium 1.6 mg/dl (1.6-2.3); Potassium 3.8 mmoL/L (3.5-5.1); Sodium 138 mmol/L (136-145); Total Protein,Serum 5.3 g/dl (6.3-8.2)
[2024-05-08 07:38] LABS: C-Reactive Protein 1.2 mg/L (0-4)
[2024-05-08 08:00] VITALS: BP 120/51; PULSE 84; RESP 20; TEMP 36.6; O2SAT 97
[2024-05-08] MEDS: TC99M SULF.COLLOID;1 DOSE (UP TO 20 MCI) IV (08:48)
[2024-05-08 08:54] LABS: Procalcitonin 0.101 ng/mL (0.0-2.0)
--- NOTE | 2024-05-08 08:56 | P.PN_ITS ---
Subjective Narrative: The patient is currently in radiology undergoing gastric emptying study. Per nursing and per the patient's family she is feeling a little better . Exam Data for Last 24 hours Vital signs and Labs for Last 24 Hours: Temp Pulse Resp BP Pulse Ox O2 Del Method 98.7 F 85 18 116/68 97 Room Air 05/07/24 16:00 05/07/24 16:00 05/07/24 16:00 05/07/24 16:00 05/07/24 20:00 05/08/24 06:32 Laboratory Results - last 24 hr 05/07/24 11:48: POC Glucose 125 H 05/07/24 15:35: POC Glucose 123 H 05/07/24 20:51: POC Glucose 170 H 05/08/24 05:40: POC Glucose 94 05/08/24 06:07: WBC 5.1, RBC 3.23 L, Hgb 10.4 L, Hct 31.9 L, MCV 98.9, MCH 32.3 H, MCHC 32.6, RDW 15.3, Plt Count 169, MPV 7.9, Neut % (Auto) 69.1, Lymph % (Auto) 22.5, [place] % (Auto) 6.0, Eos % (Auto) 1.8, Baso % (Auto) 0.5, Neut # (Auto) 3.5, Lymph # (Auto) 1.1, [place] # (Auto) 0.3, Eos # (Auto) 0.1, Baso # (Auto) 0.0, Sodium 138, Potassium 3.8, Chloride 109 H, Carbon Dioxide 26, Anion Gap 6.8, BUN 14, Creatinine 1.30 H, Estimated Creat Clear 38, Estimated GFR 41 L , Est GFR ( Amer) 49 L, Glucose 93, Calcium 8.0 L, Magnesium 1.6 D, Total Bilirubin 0.9, AST 32, ALT 41, Alkaline Phosphatase 27 L, C-Reactive Protein 1.2 D, Total Protein 5.3 L, Albumin 2.9 L D, Globulin 2.4, Albumin/Globulin Ratio 1.2, Procalcitonin 0.101 I & O for Last 24 hours: Intake & Output 05/05/24 05/06/24 05/07/24 05/08/24 11:59 11:59 11:59 11:59 Intake Total 244 / 244 2782 / 2782 Output Total 0 / 0 Balance 244 / 244 2781 / 2781 Weight 128 lb 3.2 oz 130 lb 6.4 oz Microbiology Reports for the Last 24 Hours: Microbiology 05/06/24 19:25 Blood Blood Culture - Preliminary NO GROWTH AFTER 24 HOURS 05/06/24 19:10 Blood Blood Culture - Preliminary NO GROWTH AFTER 24 HOURS Constitutional Comments: (Deferred) Progress Note: A&P Assessment and plan (1) Gallstones: Status: Acute Assessment and plan: Gallstones and 3 mm gallbladder wall of undetermined significance. The patient does not exhibit pathognomonic findings of biliary disease; however, gallbladder as the etiology (partial) cannot be completely ruled out . Seemingly, the risk of operative intervention currently outweigh potential benefits. (2) Abdominal pain: Status: Acute Assessment and plan: Per the patient's report yesterday afternoon and her per family confirmation today...the patient is feeling a little better . Assessment and Plan Assessment and Plan for All Diagnoses:: Follow-up pending gastric emptying study
--- NOTE | 2024-05-08 09:00 | NM_ITS ---
FINAL REPORT TECHNIQUE: Millicuries of technetium 99m sulfur colloid was ingested with eggs. CLINICAL HISTORY: Evaluate for diabetic gastroparesis 8:15 am .58 mci sulfur colloid injected into 2 whole eggs toast with butter FINDINGS: GASTRIC EMPTYING SCAN Static images show normal emptying of the stomach into the small bowel. Based on the time activity curve, the estimated half-emptying time is 113 minutes. IMPRESSION: Gastric emptying is abnormally low. Reviewed, Interpreted and Dictated by Sunny Thompson III, MD Transcribed by [facility] Authenticated and [facility]
[2024-05-08 13:11] LABS: POC Glucose,Bedside 126 (70-110)
[2024-05-08] MEDS: PANTOPRAZOLE 40MG TABLET 40 MG PO (13:12)
[2024-05-08] MEDS: GABAPENTIN 300MG CAPSULE 300 MG PO (13:13)
[2024-05-08] MEDS: DULOXETINE 30MG CAPSULE.DR 30 MG PO (13:15)
[2024-05-08] MEDS: LISINOPRIL 2.5MG TABLET 2.5 MG PO (13:20)
[2024-05-08 16:00] VITALS: BP 153/88; PULSE 81; RESP 20; TEMP 36.8; O2SAT 98
--- NOTE | 2024-05-08 17:06 | P.DS_ITS ---
General Admission date:: 05/06/24 HPI HPI HPI: Really nice patient with past medical history of diabetes, hypertension, CKD. Patient presents complaining of abdominal discomfort, weight loss, weakness, decreased p.o. intake, nausea, dry heaves x 3 weeks. Patient brought to hospital by her daughter. Daughter states that she forced patient to come to hospital because her symptoms were not getting better . Complains of left hand and numbness starting today. Also complains of chest burning for last 3 weeks. States she suffers from LLQ, RLQ crampy type sensation, intermittent, better with flatus/walking, worse after sleep. Patient states lower quadrant abdominal discomfort has kept her from eating over past 3 weeks. Patient and patient's daughter note 13 pound weight loss, diarrhea intermittently over past 3 weeks. Denies injuries, known sick contacts, fevers, chills. CT abdomen/pelvis done in emergency room shows multiple gallstones. Hospital Course Hospital Course Hospital Course: Patient presented to hospital complaining of abdominal discomfort, and diagnosed with UTI versus irritable bowel syndrome by Dr. Carter.. Patient had CT abdomen/pelvis done 05/06 showing multiple gallstones. Patient afebrile throughout hospitalization without fever. Patient's UA showed scant signs of UTI, and patient started on IV Zosyn at time of hospital presentation. Patient's bladder tenderness resolved during hospitalization on IV antibiotics. Urine culture pending at time of hospital discharge. Blood cultures from 05/06 showed no growth to date during hospitalization. 05/07 right upper quadrant ultrasound showed gallstones. Patient denied right upper quadrant is tender to palpation during hospitalization and had negative Curtis sign. Patient evaluated by general surgery during hospitalization, with no indication for emergent cholecystectomy noted. Patient had gastric emptying study done 05/08/2024 which showed GI transit time 113 minutes which is within normal limits. Patient stated she was back to clinical baseline by 05/08/2024. Patient observed eating meals during hospitalization by multiple staff members. Patient subsequently discharged home 05/08/2024 with instructions to follow-up with gastroenterology, general surgery, and primary care physician outpatient basis. Patient discharged on 5 days of cefdinir, 30 days of omeprazole, and as needed Zofran by Dr. Carter at time of hospital discharge. Patient also advised by Dr. Carter to follow-up with gastroenterology and discuss possible irritable bowel disease signs/symptoms with GI specialist. Exam Data for Last 24 hours Vital signs and Labs for Last 24 Hours: Temp Pulse Resp BP Pulse Ox O2 Del Method 98.2 F 81 20 153/88 H 98 Room Air 05/08/24 16:00 05/08/24 16:00 05/08/24 16:00 05/08/24 16:00 05/08/24 16:00 05/08/24 16:00 Laboratory Results - last 24 hr 05/07/24 20:51: POC Glucose 170 H 05/08/24 05:40: POC Glucose 94 05/08/24 06:07: WBC 5.1, RBC 3.23 L, Hgb 10.4 L, Hct 31.9 L, MCV 98.9, MCH 32.3 H, MCHC 32.6, RDW 15.3, Plt Count 169, MPV 7.9, Neut % (Auto) 69.1, Lymph % (Auto) 22.5, [place] % (Auto) 6.0, Eos % (Auto) 1.8, Baso % (Auto) 0.5, Neut # (Auto) 3.5, Lymph # (Auto) 1.1, [place] # (Auto) 0.3, Eos # (Auto) 0.1, Baso # (Auto) 0.0, Sodium 138, Potassium 3.8, Chloride 109 H, Carbon Dioxide 26, Anion Gap 6.8, BUN 14, Creatinine 1.30 H, Estimated Creat Clear 38, Estimated GFR 41 L , Est GFR ( Amer) 49 L, Glucose 93, Calcium 8.0 L, Magnesium 1.6 D, Tot al Bilirubin 0.9, AST 32, ALT 41, Alkaline Phosphatase 27 L, C-Reactive Protein 1.2 D, Total Protein 5.3 L, Albumin 2.9 L D, Globulin 2.4, Albumin/Globulin Ratio 1.2, Procalcitonin 0.101 05/08/24 13:02: POC Glucose 126 H I & O for Last 24 hours: Intake & Output 05/05/24 05/06/24 05/07/24 05/08/24 23:59 23:59 23:59 23:59 Intake Total 984 / 3026 2141 Output Total 0 / 0 1 / 1 0 / 0 Balance 0 / 244 983 / 3025 2141 Weight 56.841 kg 58 kg 59.148 kg Microbiology Reports for the Last 24 Hours: Microbiology 05/06/24 19:25 Blood Blood Culture - Preliminary NO GROWTH AFTER 24 HOURS 05/06/24 19:10 Blood Blood Culture - Preliminary NO GROWTH AFTER 24 HOURS Constitutional Constitutional: no acute distress *Routine HEENT Exam Head: Present normocephalic Eye: Present EOMI and normal accommodation ENT: Present mucous membranes moist *Routine Neck Exam Neck: Present supple and full ROM *Routine Respiratory Exam Respiratory: Present CTA bilaterally and normal respiratory effort *Routine Cardiovascular Exam Cardiovascular: Present RRR and Normal S1 *Routine Abdominal Exam Abdominal: Present soft and normoactive bowel sounds; Absent distended, rebound or guarding *Routine Extremities Exam Extremities: Present full ROM and normal capillary refill *Routine Skin Exam Skin: Present intact and dry *Routine Neurological Exam Neurological: Present alert, oriented X3 and CN II-XII intact Results Data Completed and Pending Labs on day of discharge: Labs from last 24 hours 05/08/24 05/08/24 05/08/24 13:02 06:07 05:40 WBC 5.1 RBC 3.23 L Hgb 10.4 L Hct 31.9 L MCV 98.9 MCH 32.3 H MCHC 32.6 RDW 15.3 Plt Count 169 MPV 7.9 Neut % (Auto) 69.1 Lymph % (Auto) 22.5 [place] % (Auto) 6.0 Eos % (Auto) 1.8 Baso % (Auto) 0.5 Neut # (Auto) 3.5 Lymph # (Auto) 1.1 [place] # (Auto) 0.3 Eos # (Auto) 0.1 Baso # (Auto) 0.0 Sodium 138 Potassium 3.8 Chloride 109 H Carbon Dioxide 26 Anion Gap 6.8 BUN 14 Creatinine 1.30 H Estimated Creat Clear 38 Estimated GFR 41 L Est GFR ( Amer) 49 L Glucose 93 POC Glucose 126 H 94 Calcium 8.0 L Magnesium 1.6 D Total Bilirubin 0.9 AST 32 ALT 41 Alkaline Phosphatase 27 L C-Reactive Protein 1.2 D Total Protein 5.3 L Albumin 2.9 L D Globulin 2.4 Albumin/Globulin Ratio 1.2 Procalcitonin 0.101 05/07/24 20:51 WBC RBC Hgb Hct MCV MCH MCHC RDW Plt Count MPV Neut % (Auto) Lymph % (Auto) [place] % (Auto) Eos % (Auto) Baso % (Auto) Neut # (Auto) Lymph # (Auto) [place] # (Auto) Eos # (Auto) Baso # (Auto) Sodium Potassium Chloride Carbon Dioxide Anion Gap BUN Creatinine Estimated Creat Clear Estimated GFR Est GFR ( Amer) Glucose POC Glucose 170 H Calcium Magnesium Total Bilirubin AST ALT Alkaline Phosphatase C-Reactive Protein Total Protein Albumin Globulin Albumin/Globulin Ratio Procalcitonin Preliminary micro results at discharge 05/06/24 19:25 Blood Culture - Preliminary Blood NO GROWTH AFTER 24 HOURS 05/06/24 19:10 Blood Culture - Preliminary Blood NO GROWTH AFTER 24 HOURS Impressions Impressions: 05/08/2024 nuclear gastric emptying study : FINDINGS: GASTRIC EMPTYING SCAN Static images show normal emptying of the stomach into the small bowel. Based on the time activity curve, the estimated half-emptying time is 113 minutes. IMPRESSION: Gastric emptying is abnormally low. 05/07/2024 U/S RUQ: IMPRESSION: Multiple gallstones in a contracted gallbladder with mild wall thickening. Cholecystitis not excluded. 05/06/2024 CT abdomen and pelvis with contrast IMPRESSION: Multiple gallstones are present in a contracted gallbladder with marked gallbladder wall thickening, and cholecystitis is not excluded. No biliary ductal dilatation is present. Descending and sigmoid diverticulosis without evidence of acute inflammatory change. Prior L1 kyphoplasty. DS: Diagnosis Discharge Diagnosis (1) Gallstones: Status: Acute Code(s): K80.20 - Calculus of gallbladder without cholecystitis without obstruction (2) Abdominal pain: Status: Acute Code(s): R10.9 - Unspecified abdominal pain Qualifiers: Abdominal location: unspecified location Qualified Code(s): R10.9 - Unspecified abdominal pain Meds Home Medications and Allergies Home Medications ?Medication ?Instructions ?Recorded ?Confirmed ?Type alendronate 70 mg tablet 70 mg PO FR 05/06/24 05/07/24 History carvedilol 12.5 mg tablet 12.5 mg PO BID 05/06/24 05/06/24 History levothyroxine 50 mcg tablet 50 mcg PO DAILY 05/06/24 05/06/24 History lisinopril 2.5 mg tablet 2.5 mg PO DAILY 05/06/24 05/06/24 History lovastatin 20 mg tablet 20 mg PO HS 05/06/24 05/07/24 History metformin 500 mg tablet 500 mg PO BID 05/06/24 05/06/24 History dicyclomine 10 mg capsule 10 mg PO BIDP PRN Abdominal Pain 05/07/24 05/07/24 History duloxetine 30 mg capsule,delayed 30 mg PO DAILY 05/07/24 05/07/24 History release gabapentin 300 mg capsule 300 mg PO TID 05/07/24 05/07/24 History ondansetron 4 mg disintegrating 4 mg PO Q6HP PRN Nausea And 05/07/24 05/07/24 History tablet Vomiting cefdinir 300 mg capsule 300 mg PO BID #10 caps 05/08/24 Rx omeprazole 40 mg capsule,delayed 40 mg PO DAILY #30 caps 05/08/24 Rx release promethazine 25 mg tablet 25 mg PO Q6H PRN nausea and 05/08/24 Rx vomiting #30 tabs New Prescriptions to Start Prescriptions: cefdinir Carter,[place] omeprazole Carter,[place] promethazine Carter,[place] Allergies Allergy/AdvReac Type Severity Reaction Status Date / Time sulfamethoxazole Allergy Verified 03/25/24 12:50 [From Bactrim] trimethoprim [From Bactrim] Allergy Verified 03/25/24 12:50 Discharge Plan Disposition Patient Disposition: Home, Self-Care Condition: Good Discharge Order Discharge Orders: Discharge Order (Routine); Ordered 05/08/24 Ordered By: Ricardo Carter Follow up Plan Follow up with: Jose Rafael Faith MD [Staff Physician] - Enter time for follow up (Recurrent abdominal discomfort, 13 pound weight loss over 3 weeks, normal gastric emptying study, gallstones on CT/ultrasound but no signs of biliary colic or acute cholecystitis. Please evaluate and advise. Thank you please call for appointment) Mayra Duff [Primary Care Provider] - 05/15/24 2:30 pm (Recurrent abdominal pain. Treated for UTI and placed on omeprazole by Dr. Carter during hospitalization. Also prescribed as needed Phenergan. Please evaluate advise. Thank you) Yifan Malone MD [Staff Physician] - 2 weeks (Follow-up for gallstones noted during hospitalization. Patient back to clinical baseline prior to hospital discharge without removal of gallbladder. Thank you please call for follow up appointmnet) Prescriptions/Medication Reconciliation: New promethazine 25 mg tablet 25 mg PO Q6H PRN (Reason: nausea and vomiting) Qty: 30 0RF omeprazole 40 mg capsule,delayed release(DR/EC) 40 mg PO DAILY Qty: 30 0RF cefdinir 300 mg capsule 300 mg PO BID Qty: 10 0RF No Action metformin 500 mg tablet 500 mg PO BID carvedilol 12.5 mg tablet 12.5 mg PO BID Patient Comments: TAKE 1 TABLET BY MOUTH TWICE DAILY alendronate 70 mg tablet 70 mg PO FR levothyroxine 50 mcg tablet 50 mcg PO DAILY Patient Comments: TAKE 1 TABLET BY MOUTH ONCE DAILY ON AN EMPTY STOMACH 30 MINUTES BEFORE BREAKFAST lovastatin 20 mg tablet 20 mg PO HS Patient Comments: TAKE 1 TABLET BY MOUTH ONCE DAILY WITH EVENING MEAL lisinopril 2.5 mg tablet 2.5 mg PO DAILY Patient Comments: TAKE 1 TABLET BY MOUTH ONCE DAILY gabapentin 300 mg capsule 300 mg PO TID Patient Comments: TAKE 1 CAPSULE BY MOUTH THREE TIMES DAILY FOR BACK PAIN ondansetron 4 mg tablet,disintegrating 4 mg PO Q6HP PRN (Reason: Nausea And Vomiting) Patient Comments: DISSOLVE 1 TABLET IN MOUTH EVERY 6 HOURS NEEDED THEN SWALLOW FOR NAUSEA AND VOMITING dicyclomine 10 mg capsule 10 mg PO BIDP PRN (Reason: Abdominal Pain) Patient Comments: TAKE 1 CAPSULE BY MOUTH TWICE DAILY NEEDED FOR ABDOMINAL CRAMPING duloxetine 30 mg capsule,delayed release(DR/EC) 30 mg PO DAILY Patient Comments: TAKE 1 CAPSULE BY MOUTH ONCE DAILY Problem Reconciliation Problems Reviewed?: Yes Patient Discharge Instructions ACTIVITY: Continue current activity DIET: continue same diet Patient Instructions: Irritable Bowel Syndrome: Strategies for Managing a Complex Condition, Irritable Bowel Syndrome, DI for Urinary Tract Infection (UTI), DI for Abdominal Pain-Adult Print Language: [place] Providers Primary Care Provider: Mayra Duff Admit Provider: Ricardo Carter Attending Provider: Ricardo Carter
[2024-05-08 17:32] LABS: POC Glucose,Bedside 118 (70-110)
--- NOTE | 2024-05-11 16:33 | CARE MANAGER ---
Contacted patient related to hospital discharge. Patient states that she is having diarrhea and almost passed out. She doesn't have a way to check her blood pressure. She states she is drinking plenty of fluids. We discussed seeing the doctor sooner than Saturday or coming here to be checked out. Has new medications. Denies other questions. NEGRITA Carlton
== END 2024-05-08 18:48 | disposition home or self-care (01) | DRG 445 ==
LOC: ER 17:26 → 2ND 17:37
PROVIDERS: Emergency Medicine; Admitting Provider Internal Medicine; Emergency Provider Emergency Medicine; PCP Nurse Practitioner Family; Visit Provider Internal Medicine
DX: K80.20 Calculus of gallbladder without cholecystitis without obstruction (principal); N39.0 Urinary tract infection, site not specified; N18.9 Chronic kidney disease, unspecified; I12.9 Hypertensive chronic kidney disease with stage 1 through stage 4 chronic kidney disease, or unspecified chronic kidney disease; E78.5 Hyperlipidemia, unspecified; E11.22 Type 2 diabetes mellitus with diabetic chronic kidney disease; N18.2 Chronic kidney disease, stage 2 (mild); E86.0 Dehydration; Z79.84 Long term (current) use of oral hypoglycemic drugs
CPT/HCPCS: 36415; 74177; 76705; 78264; 80053; 81001; 82962; 83605; 83690; 83735; 84145; 85025; 86140; 87040; 87086; 93005; 99285; A9541; J0131; J2270; J2405; J2543; J3475; J7030; J7120; Q9967

== ENCOUNTER 2024-05-31 12:48 | Observation (INO) | payer MEDICARE, SELFPAY ==
[2024-05-31] VITALS (11 sets, daily range): BP systolic 100–144; BP diastolic 62–88; PULSE 71–90; RESP 16–18; TEMP 36.5–37; O2SAT 97–100; BMI 21.7; BMI 18.8
--- NOTE | 2024-05-31 13:16 | CT_ITS ---
PROCEDURE INFORMATION: Exam: CT Abdomen And Pelvis With Contrast Exam date and time: 05/31/2024 1:57 PM Age: 68 years old Clinical indication: Other: PT is unable to tolerate any po intake. Increased weakness, dry heaving, no bm; Additional info: Post op complication, ccy. PT is unable to tolerate any po intake. Increased weakness, dry heaving, no bm TECHNIQUE: Imaging protocol: Computed tomography of the abdomen and pelvis with contrast. Radiation optimization: All CT scans at this facility use at least one of these dose optimization techniques: automated exposure control; mA and/or kV adjustment per patient size (includes targeted exams where dose is matched to clinical indication); or iterative reconstruction. Contrast material: ISOVUE; Contrast volume: 75 ml; Contrast route: IV; COMPARISON: CT ABDOMEN PELVIS W CON 05/06/2024 1:26 PM FINDINGS: Liver: Focal fatty deposition noted near the falciform ligament. No suspicious liver lesions. Gallbladder and biliary ducts: Status post cholecystectomy. No focal fluid collection or significant inflammatory changes in the surgical bed. No intra- or extra-hepatic biliary ductal dilatation. Pancreas: No evidence of acute pancreatitis. Spleen: Unremarkable. Adrenal glands: Unremarkable. Kidneys and ureters: Unremarkable. Stomach and bowel: Two small duodenal diverticula in the 2nd part of the duodenum, unchanged from prior exam. No evidence of duodenal diverticulitis. No evidence of small bowel obstruction or gastric outlet obstruction. Colonic diverticulosis without evidence of diverticulitis, unchanged. Appendix: Appendix is visualized and is normal. Intraperitoneal space: No free fluid. No pneumoperitoneum. Vasculature: No abdominal aortic aneurysm. Lymph nodes: Unremarkable. Urinary bladder: Unremarkable. Reproductive: Unremarkable. Bones/joints: No evidence of acute osseous abnormality. Soft tissues: Unremarkable. IMPRESSION: 1. No acute findings in the abdomen or pelvis. 2. Status post cholecystectomy with no evidence of post-operative complication. 3. Chronic ancillary findings are detailed above.
--- NOTE | 2024-05-31 13:19 | ED_ITS ---
Discharge Plan Disposition Chief Complaint: Weakness Prescriptions Prescriptions: No Action metformin 500 mg tablet 500 mg PO BID carvedilol 12.5 mg tablet 12.5 mg PO BID Patient Comments: TAKE 1 TABLET BY MOUTH TWICE DAILY alendronate 70 mg tablet 70 mg PO FR levothyroxine 50 mcg tablet 50 mcg PO DAILY Patient Comments: TAKE 1 TABLET BY MOUTH ONCE DAILY ON AN EMPTY STOMACH 30 MINUTES BEFORE BREAKFAST lovastatin 20 mg tablet 20 mg PO HS Patient Comments: TAKE 1 TABLET BY MOUTH ONCE DAILY WITH EVENING MEAL lisinopril 2.5 mg tablet 2.5 mg PO DAILY Patient Comments: TAKE 1 TABLET BY MOUTH ONCE DAILY gabapentin 300 mg capsule 300 mg PO TID Patient Comments: TAKE 1 CAPSULE BY MOUTH THREE TIMES DAILY FOR BACK PAIN ondansetron 4 mg tablet,disintegrating 4 mg PO Q6HP PRN (Reason: Nausea And Vomiting) Patient Comments: DISSOLVE 1 TABLET IN MOUTH EVERY 6 HOURS NEEDED THEN SWALLOW FOR NAUSEA AND VOMITING dicyclomine 10 mg capsule 10 mg PO BIDP PRN (Reason: Abdominal Pain) Patient Comments: TAKE 1 CAPSULE BY MOUTH TWICE DAILY NEEDED FOR ABDOMINAL CRAMPING duloxetine 30 mg capsule,delayed release(DR/EC) 30 mg PO DAILY Patient Comments: TAKE 1 CAPSULE BY MOUTH ONCE DAILY promethazine 25 mg tablet 25 mg PO Q6H PRN (Reason: nausea and vomiting) Qty: 30 0RF omeprazole 40 mg capsule,delayed release(DR/EC) 40 mg PO DAILY Qty: 30 0RF cefdinir 300 mg capsule 300 mg PO BID Qty: 10 0RF Referrals Follow up/Referrals: Mayra Duff [Primary Care Provider] - See instructions Print Language Print Language: Urdu Discharge ED Provider: Radhames Dickens General Adult HPI General Chief complaint: Weakness Stated complaint: weakness, abd aches Time Seen by Provider: 05/31/24 13:09 Mode of Arrival: Wheelchair Source of Information: Patient and Spouse Limitations: No Limitations Description of Symptoms (Recalled from ER Triage Doc. by RN): pt is unable to tolerate any po intake. increased weakness,dry heaving, no bm History of Present Illness HPI narrative: Patient is a 68-year-old with past medical history significant for cholecystectomy 2 weeks ago at [place] hypothyroidism hypertension type 2 diabetes not on insulin presents emergency department with fatigue constipation generalized weakness and decreased p.o. intake. Patient has not been able to tolerate very much p.o. since her surgery. No nausea or vomiting but feels very full. Has had 2 bowel movements in the last week without blood or black. Notes generalized abdominal cramping. Not taking any pain medications. Unable to perform ADLs today due to severe weakness. Last urinated yesterday evening has not spontaneously urinated today. Is having difficulty taking both solids and liquids because she feels very full. No fevers. Also notes dysuria. Has had a 5 pound weight loss in the last 2 weeks Related Data Home Medications ?Medication ?Instructions ?Recorded ?Confirmed alendronate 70 mg tablet 70 mg PO FR 05/06/24 05/07/24 carvedilol 12.5 mg tablet 12.5 mg PO BID 05/06/24 05/06/24 levothyroxine 50 mcg tablet 50 mcg PO DAILY 05/06/24 05/06/24 lisinopril 2.5 mg tablet 2.5 mg PO DAILY 05/06/24 05/06/24 lovastatin 20 mg tablet 20 mg PO HS 05/06/24 05/07/24 metformin 500 mg tablet 500 mg PO BID 05/06/24 05/06/24 dicyclomine 10 mg capsule 10 mg PO BIDP PRN Abdominal Pain 05/07/24 05/07/24 duloxetine 30 mg capsule,delayed 30 mg PO DAILY 05/07/24 05/07/24 release gabapentin 300 mg capsule 300 mg PO TID 05/07/24 05/07/24 ondansetron 4 mg disintegrating 4 mg PO Q6HP PRN Nausea And 05/07/24 05/07/24 tablet Vomiting Previous Rx's ?Medication ?Instructions ?Recorded cefdinir 300 mg capsule 300 mg PO BID #10 caps 05/08/24 omeprazole 40 mg capsule,delayed 40 mg PO DAILY #30 caps 05/08/24 release promethazine 25 mg tablet 25 mg PO Q6H PRN nausea and 05/08/24 vomiting #30 tabs Allergies Allergy/AdvReac Type Severity Reaction Status Date / Time sulfamethoxazole Allergy Verified 03/25/24 12:50 [From Bactrim] trimethoprim [From Bactrim] Allergy Verified 03/25/24 12:50 PFSH PFS Disclaimer: The information contained in this section may have been updated after the patient was seen, as this information can be updated by other users. Medical History (Updated 05/12/24 @ 00:00 by Ranjana Hdz) Brain aneurysm Chronic kidney disease Hyperlipemia Hypertension Diabetes mellitus Surgical History (Updated 05/06/24 @ 18:44 by Kianna Vera, RN) Previous back surgery Family History (Updated 05/06/24 @ 18:44 by Kianna Vera, RN) Other Diabetes Hypertension Social History Smoking Status: Never smoker alcohol intake: never current occupational status: retired Travel in the last 8 weeks: None ROS Obtained: Yes All systems reviewed & no additional complaints except as documented Physical Exam General General appearance: alert and in distress Head Head exam: atraumatic and normocephalic Eye Eye exam: Present normal appearance and PERRL ENT ENT exam: Present mucous membranes dry Chest Chest inspection: Present normal inspection Respiratory Respiratory exam: Present normal lung sounds bilaterally; Absent respiratory distress Cardiovascular Cardiovascular exam: Present regular rate and normal rhythm Abdominal Exam Abdominal exam: Present soft, tenderness (Suprapubic epigastric and right upper quadrant), guarding and other (Surgical scars clean dry and intact) Back Exam Back exam: Present normal inspection; Absent tenderness Neurological Exam Neurological exam: Present alert and oriented X3 Medical Decision Making Medical Records Screening: Per USPSTF and CDC recommendations, given the prevalence of disease in our region, it is our hospital?s policy to screen for HIV and viral Hepatitis for all patients aged 18 and over and those with ongoing risk factors. Teddy Inquiry Pt receiving controlled substance: No Vital Signs: 05/31/24 12:50 05/31/24 12:56 05/31/24 13:30 Temperature 98.5 F Temperature Source Oral Pulse Rate 85 79 Pulse Rate [Right] 83 Respiratory Rate 16 Blood Pressure 113/67 112/72 Blood Pressure [Right Arm] 100/72 L Blood Pressure Mean [Right Arm] 81 02 Sat by Pulse Oximetry 100 97 100 Oxygen Delivery Method Room Air 05/31/24 14:00 05/31/24 14:30 05/31/24 15:00 Temperature Temperature Source Pulse Rate 79 79 78 Pulse Rate [Right] Respiratory Rate Blood Pressure 123/62 144/75 H 125/81 Blood Pressure [Right Arm] Blood Pressure Mean [Right Arm] 02 Sat by Pulse Oximetry 98 99 97 Oxygen Delivery Method Room Air Room Air Room Air 05/31/24 15:30 05/31/24 16:00 Temperature Temperature Source Pulse Rate 79 90 Pulse Rate [Right] Respiratory Rate Blood Pressure 143/83 H 140/88 Blood Pressure [Right Arm] Blood Pressure Mean [Right Arm] 02 Sat by Pulse Oximetry 99 99 Oxygen Delivery Method Room Air Room Air Lab Data Lab Results 05/31/24 13:00: WBC 5.5, RBC 4.01 L, Hgb 12.9, Hct 39.3, MCV 97.9, MCH 32.2 H, MCHC 32.9, RDW 14.5, Plt Count 194, MPV 8.8, Neut % (Auto) 67.3, Lymph % (Auto) 23.6, [place] % (Auto) 6.0, Eos % (Auto) 2.5, Baso % (Auto) 0.7, Neut # (Auto) 3.7, Lymph # (Auto) 1.3, [place] # (Auto) 0.3, Eos # (Auto) 0.1, Baso # (Auto) 0.0, S odium 135 L, Potassium 5.3 H, Chloride 104, Carbon Dioxide 25, Anion Gap 11.3, B UN 21 H, Creatinine 1.00, Estimated Creat Clear 44, Estimated GFR 55 L, Est GFR ( Amer) 67, Glucose 144 H, Calcium 9.8, Phosphorus 3.2, Magnesium 1.5 L, Total Bilirubin 2.6 H, AST 79 H, ALT 80 H, Alkaline Phosphatase < 20 L, Total Protein 7.7 D, Albumin 4.6, Globulin 3.1, Albumin/Globulin Ratio 1.5, Lipase 135, TSH 0.49, Thyroxine (T4) 13.7 H, HIV 1&2 Antibody Rapid Nonreactive 05/31/24 13:16: VBG pH 7.40, VBG pCO2 41.8, VBG pO2 35.5, VBG HCO3 25.0, VBG Total CO2 26.3, VBG O2 Saturation 68.3, VBG Base Excess 0.1, VBG Lactic Acid 1.7 05/31/24 13:00 05/31/24 13:00 Orders (Tests/Meds): ED MEDICATIONS Generic Name Dose Route Start Last Admin Trade Name Freq PRN Reason Stop Dose Admin Sodium Chloride 10 ml 05/31/24 13:54 05/31/24 13:58 Sodium Chloride 0.9% 10ml Syr (Rad Only) IV 06/30/24 13:53 10 ml NEEDED PRN Administration Maintain IV Site Discontinued Medications Generic Name Dose Route Start Last Admin Trade Name Juvenal PRN Reason Stop Dose Admin Lactated Ringer's 1,000 mls @ 999 mls/hr 05/31/24 13:19 05/31/24 13:24 Lactated Ringer's 1000 Ml Bag IV 05/31/24 14:19 999 mls/hr .Q1H1M ONE Administration Iopamidol 75 ml 05/31/24 13:54 05/31/24 13:58 Iopamidol-370 (76%);100ml Bottle IV 05/31/24 13:55 75 ml ONCE ONE Administration Ondansetron HCl 4 mg 05/31/24 13:16 05/31/24 13:24 Ondansetron 4mg/2ml Vial IV 05/31/24 13:17 4 mg ONCE ONE Administration ORDERS Category Date Time Status CT abdomen pelvis w con Stat Cat Scan 05/31/24 13:16 Completed CBC w/Auto Diff [Complete Blood Count Auto Diff] Stat Lab 05/31/24 13:00 Completed CMP [Comprehensive Metabolic Panel] Stat Lab 05/31/24 13:00 Completed HIV (1&2) Antibody Rapid Stat Lab 05/31/24 13:00 Completed Hep C Ab with Reflex to RNA Stat Lab 05/31/24 13:00 Received Lipase Stat Lab 05/31/24 13:00 Completed Magnesium Stat Lab 05/31/24 13:00 Completed PHOS [Phosphorous] Stat Lab 05/31/24 13:00 Completed T4 (Thyroxine) Stat Lab 05/31/24 13:00 Completed TSH [Thyroid Stimulating Hormone] Stat Lab 05/31/24 13:00 Completed UA/RFX Microscopic Stat Lab 05/31/24 13:18 Ordered VBG [Venous Blood Gas] Stat RT 05/31/24 13:16 Completed Medical Decision Narrative: In summary, this 68-year-old female presents to the emergency department today with generalized weakness. On initial evaluation patient is hemodynamically stable saturating appropriately on room air afebrile no acute distress. Differential diagnosis includes but is not limited to postop complication including biloma, ileus, urinary tract infection pancreatitis. Based on these concerns, I ordered CBC CMP lipase magnesium phosphorus TSH T4 UA VBG CT abdomen pelvis with IV contrast ECG personally interpreted demonstrates normal sinus rhythm no ST elevation ST depression or T wave inversions concerning for ischemia Patient received lactated Ringer's and Zofran for treatment. Labs personally reviewed demonstrate Hyperkalemia without EKG changes mild hypomagnesemia T. bili of 2.6 AST of 79 ALT of 80 mild elevation in T4 normal lipase CT imaging personally interpreted demonstrate no biloma ileus or stool At 4 PM transfer of care was given to Dr. Dickens to follow-up patient's ability to tolerate p.o., ambulate and urine studies. Critical Care Critical Care Time Critical Care Time: No
[2024-05-31] MEDS: LACTATED RINGERS 1000ML 1,000 ML 999 ML IV (13:24)
[2024-05-31] MEDS: ONDANSETRON 4MG/2ML VIAL 4 MG IV (13:24)
[2024-05-31 13:27] LABS: Albumin Level 4.6 g/dl (3.5-5.0); Chloride 104 mmol/L (98-107)
[2024-05-31 13:28] LABS: Potassium 5.3 mmoL/L (3.5-5.1); Sodium 135 mmol/L (136-145)
[2024-05-31 13:29] LABS: VBG PCO2 41.8 mmol/L (35-51); VBG PO2 35.5 mmol/L (28-40); VBG Total CO2 26.3 mmol/L (23-27)
--- NOTE | 2024-05-31 13:29 | ECG_ITS ---
APPROVED REPORT Exam: Resting ECG HR:75 bpm ECG Measurements Heart Rate 75 AXES AL 116 P 41 QRSd 91 QRS 64 QT 350 T 74 QTc 378 Conclusion SINUS RHYTHM WITH SHORT AL INTERVAL BORDERLINE ECG Electronically signed by : LUCAS BEAUCHAMP, 06/02/2024 07:31:14
[2024-05-31 13:30] LABS: Lactate Venous 1.7 mmol/L (0.4-2.0); VBG Base Excess 0.1 mmol/L (-2.4-2.3); VBG Oxygen Saturation 68.3 % (50-70)
[2024-05-31 13:30] LABS: Alanine Aminotransferase 80 U/L (12-78); Albumin/Globulin Ratio 1.5 (1.1-1.8); Anion Gap 11.3 mEq/L (5-15); Aspartate Amino Transferase 79 U/L (14-36); Bilirubin,Total 2.6 mg/dl (0.2-1.3); Blood Urea Nitrogen 21 mg/dl (7-17); Carbon Dioxide 25 mmol/L (22.0-30.0); Creatinine Clearance Estimated 44 mL/min (50-200); Estimated Glomerular Filt Rate 55 ml/min (>60); GFR (African American) 67 ML/MIN (>60); Globulin 3.1 g/dL (1.3-3.2); Lipase 135 U/L (23-300); Phosphorous 3.2 mg/dl (2.5-4.5); Total Protein,Serum 7.7 g/dl (6.3-8.2)
[2024-05-31 13:31] LABS: Calcium 9.8 mg/dl (8.4-10.2); Glucose 144 mg/dl (74-100); Magnesium 1.5 mg/dl (1.6-2.3)
[2024-05-31 13:36] LABS: Basophils % 0.7 % (0.1-2.0); Eosinophils # 0.1 K/mm3 (0.0-0.4); Eosinophils % 2.5 % (0.1-12.0); Hematocrit 39.3 % (37.0-47.0); Hemoglobin 12.9 g/dL (12.2-16.2); Lymphocytes # 1.3 K/mm3 (0.7-4.5); Lymphocytes % 23.6 % (10-50); Mean Corpuscular HGB Conc 32.9 g/dL (31.8-35.4); Mean Corpuscular Hemoglobin 32.2 pg (27.0-31.2); Mean Corpuscular Volume 97.9 fl (81-99); Mean Platelet Volume 8.8 fl (7.4-10.4); Monocytes # 0.3 K/mm3 (0.1-1.0); Neutrophils # 3.7 K/mm3 (1.8-7.8); Neutrophils % 67.3 % (37.0-80.0); Platelet Count 194 K/mm3 (142-424); Red Blood Count 4.01 M/mm3 (4.20-5.40); Red Cell Distribution Width 14.5 % (11.5-17.5); White Blood Count 5.5 K/mm3 (4.8-10.8)
[2024-05-31 13:38] LABS: Alkaline Phosphatase < 20 U/L (38-126)
--- NOTE | 2024-05-31 13:38 | PC.NURSE ---
pt given a warm blanket by peewee
[2024-05-31 13:48] LABS: T4 (Thyroxine) 13.7 ug/dl (5.53-11.0)
[2024-05-31] MEDS: SODIUM CHLORIDE 0.9% 10ML SYR (RAD ONLY) 10 ML IV (13:58)
[2024-05-31] MEDS: IOPAMIDOL-370 (76%);100ML BOTTLE 75 ML IV (13:58)
[2024-05-31 14:01] LABS: Thyroid Stimulating Hormone 0.49 uIU/mL (0.465-4.68)
[2024-05-31 14:35] LABS: HIV (1&2) Antibody Rapid NONREACTIVE (NONREACTIVE)
[2024-05-31 17:46] LABS: Microscopic, Urine URINE MICROSCOPIC (MICROSCOPIC)
[2024-05-31 18:10] LABS: Appearance,Urine CLEAR (Clear); Bilirubin,Urine Negative (Negative); Blood, Urine Negative (Negative); Color,Urine YELLOW (Yellow); Glucose,Urine (UA) Negative (Negative); Ketones,Urine 1+ (Negative); Leukocyte Esterase,Urine Negative (Negative); Nitrate,Urine Negative (Negative); Protein,Urine Negative (Negative)
--- NOTE | 2024-05-31 18:19 | PC.NURSE ---
speaking with GI
--- NOTE | 2024-05-31 18:24 | PC.NURSE ---
on phone with hospitalist
[2024-05-31 18:30] LABS: Bilirubin,Direct 1.1 mg/dl (0.0-0.4)
[2024-05-31] MEDS: MAGNESIUM SULFATE IN WATER 2 GM/50 ML PIGGYBACK IV (18:39)
[2024-05-31] MEDS: LACTATED RINGERS 1000ML 1,000 ML 150 ML IV (18:39)
--- NOTE | 2024-05-31 18:40 | PC.NURSE ---
report called to [facility]
--- NOTE | 2024-05-31 18:52 | PC.NURSE ---
pt arrived to floor via wheelchair @185
--- NOTE | 2024-05-31 20:00 | P.HP_ITS ---
History of Present Illness *Admission Date: 05/31/24 *Reason for visit:: Decreased p.o. intake, 5 pound weight loss in 2 weeks *History of present illness: Kerri Miranda is a 68-year-old female with a medical history significant for recent cholecystectomy 2 weeks ago, hypothyroidism, type 2 diabetes, hypertension, CKD, osteoporosis who presents after became concerned of decreased p.o. intake, and 5 pound weight loss in 2 weeks since cholecystectomy. Patient states she would not have come to the hospital if it were not for her . Since cholecystectomy, patient has been on a bland GI soft diet which patient states she does not like. She states she has had a decreased appetite since cholecystectomy and is having hard time finding things she likes. She states she also is fearful of getting abdominal pain after eating which she has been experiencing for about 6 weeks now. She describes abdominal pain as mostly lower and sometimes upper sometime soon after, or delayed after eating. Denies nausea/vomiting. Endorses some diarrhea since cholecystectomy, but has become more constipation over the past 2 days. She denies any significant life changes, including stressors, anxiety/depression, recent travel, fevers/chills. Workup in the ED significant for potassium 5.3 magnesium 1.5, total bilirubin 2.6, direct bilirubin 1.1, AST/ALT 79/80, ALP <20, T4 13.7, TSH normal. UA unremarkable. CT abdomen/pelvis did not show acute findings. Case was discus sed with the ED provider and decision was made to admit patient for failure to thrive, decreased p.o. intake, electrolyte abnormalities. [facility] Disclaimer: The information contained in this section may have been updated after the patient was seen, as this information can be updated by other users. Medical History (Updated 06/01/24 @ 07:13 by Zeeshan Dickinson MD) Brain aneurysm Chronic kidney disease Hyperlipemia Hypertension Diabetes mellitus Surgical History Previous back surgery Family History Other Diabetes Hypertension Social History (Updated 05/31/24 @ 19:07 by Sruthi Whitmore, RN) Smoking Status: Never smoker alcohol intake: never current occupational status: retired Travel in the last 8 weeks: None Meds Home Medications and Allergies Home Medications ?Medication ?Instructions ?Recorded ?Confirmed ?Type alendronate 70 mg tablet 70 mg PO FR 05/06/24 05/31/24 History carvedilol 12.5 mg tablet 12.5 mg PO BID 05/06/24 05/31/24 History levothyroxine 50 mcg tablet 50 mcg PO DAILY 05/06/24 05/31/24 History lisinopril 2.5 mg tablet 2.5 mg PO DAILY 05/06/24 05/31/24 History lovastatin 20 mg tablet 20 mg PO HS 05/06/24 05/31/24 History New Prescriptions to Start Prescriptions: Allergies Allergy/AdvReac Type Severity Reaction Status Date / Time sulfamethoxazole Allergy Verified 03/25/24 12:50 [From Bactrim] trimethoprim [From Bactrim] Allergy Verified 03/25/24 12:50 Exam Data for Last 24 hours Vital signs and Labs for Last 24 Hours: Temp Pulse Resp BP Pulse Ox O2 Del Method 97.7 F 86 18 119/69 98 Room Air 05/31/24 19:00 05/31/24 19:00 05/31/24 19:00 05/31/24 19:00 05/31/24 19:00 05/31/24 19:00 Laboratory Results - last 24 hr 05/31/24 13:00: WBC 5.5, RBC 4.01 L, Hgb 12.9, Hct 39.3, MCV 97.9, MCH 32.2 H, MCHC 32.9, RDW 14.5, Plt Count 194, MPV 8.8, Neut % (Auto) 67.3, Lymph % (Auto) 23.6, [place] % (Auto) 6.0, Eos % (Auto) 2.5, Baso % (Auto) 0.7, Neut # (Auto) 3.7, Lymph # (Auto) 1.3, [place] # (Auto) 0.3, Eos # (Auto) 0.1, Baso # (Auto) 0.0, Sodium 135 L, Potassium 5.3 H, Chloride 104, Carbon Dioxide 25, Anion Gap 11.3, BUN 21 H, Creatinine 1.00, Estimated Creat Clear 44, Estimated GFR 55 L, Est GFR ( Amer) 67, Glucose 144 H, Calcium 9.8, Phosphorus 3.2, Magnesium 1.5 L, Total Bilirubin 2.6 H, Direct Bilirubin 1.1 H, AST 79 H, ALT 80 H, Alkaline Phosphatase < 20 L, Total Protein 7.7 D, Albumin 4.6, Globulin 3.1, Albumin/Globulin Ratio 1.5, Lipase 135, TSH 0.49, Thyroxine (T4) 13.7 H, HIV 1&2 Antibody Rapid Nonreactive 05/31/24 13:16: VBG pH 7.40, VBG pCO2 41.8, VBG pO2 35.5, VBG HCO3 25.0, VBG Total CO2 26.3, VBG O2 Saturation 68.3, VBG Base Excess 0.1, VBG Lactic Acid 1.7 05/31/24 17:43: Urine Color Yellow, Urine Appearance Clear, Urine pH 6.0, Ur Specific [place] 1.010, Urine Protein Negative, Urine Glucose (UA) Negative, Urine Ketones 1+, Urine Blood Negative, Urine Nitrate Negative, Urine Bilirubin Negative, Urine Urobilinogen 1.0, Ur Leukocyte Esterase Negative, Urine RBC N one, Urine WBC 3-5, Ur Squamous Epith Cells 3-5 I & O for Last 24 hours: Intake & Output 05/28/24 05/29/24 05/30/24 05/31/24 23:59 23:59 23:59 23:59 Weight 49.895 kg Constitutional Constitutional: no acute distress *Routine HEENT Exam Head: Present normocephalic Eye: Present EOMI and PERRL ENT: Present mucous membranes moist *Routine Neck Exam Neck: Present supple; Absent lymphadenopathy *Routine Respiratory Exam Respiratory: Present CTA bilaterally *Routine Cardiovascular Exam Cardiovascular: Present RRR *Routine Abdominal Exam Abdominal: Present soft, normoactive bowel sounds and tenderness Comments: Mild tenderness to palpation lower abdomen without peritoneal signs. *Routine Rectal Exam Rectal:: deferred *Routine Genitalia Exam Genitalia:: deferred *Routine Extremities Exam Extremities: Absent cyanosis, clubbing or edema *Routine Skin Exam Skin: Present warm; Absent rash *Routine Neurological Exam Neurological: Present alert and oriented X3 Assessment and Plan *Assessment and plan (1) Failure to thrive: Status: Acute Category: Medical (2) Chronic kidney disease: Status: Acute Qualifiers: Chronic kidney disease stage: unspecified stage Qualified Code(s): N 18.9 - Chronic kidney disease, unspecified Category: Medical Code(s): N18.9 - Chronic kidney disease, unspecified (3) Hyperbilirubinemia: Status: Acute Category: Medical Code(s): E80.6 - Other disorders of bilirubin metabolism (4) Gastroparesis: Status: Acute Category: Medical Code(s): K31.84 - Gastroparesis Plan Kerri Miranda is a 68-year-old female with a medical history significant for recent cholecystectomy 2 weeks ago, hypothyroidism, type 2 diabetes, hypertension, CKD, osteoporosis who presents after became concerned of decreased p.o. intake, and 5 pound weight loss in 2 weeks since cholecystectomy. Patient states she would not have come to the hospital if it were not for her . Since cholecystectomy, patient has been on a bland GI soft diet which patient states she does not like. She states she has had a decreased appetite since cholecystectomy and is having hard time finding things she likes. She states she also is fearful of getting abdominal pain after eating which she has been experiencing for about 6 weeks now. She describes abdominal pain as mostly lower and sometimes upper sometime soon after, or delayed after eating. Denies nausea/vomiting. Endorses some diarrhea since cholecystectomy, but has become more constipation over the past 2 days. She denies any significant life changes, including stressors, anxiety/depression, recent travel, fevers/chills. Workup in the ED significant for potassium 5.3 magnesium 1.5, total bilirubin 2.6, direct bilirubin 1.1, AST/ALT 79/80, ALP <20, T4 13.7, TSH normal. UA unremarkable. CT abdomen/pelvis did not show acute findings. Case was discussed with the ED provider and decision was made to admit patient for failure to thrive, decreased p.o. intake, electrolyte abnormalities. #Failure to thrive #Decreased p.o. intake, appetite #Hyperkalemia, hypomagnesemia #Gastroparesis #Abdominal pain ? Has had generalized abdominal pain, mostly in the lower quadrants, for about 6 weeks. Has not had abdominal pains before this. Denies nausea/vomiting. Patient is also not a good historian. ? Describes 5 pound weight loss in 2 weeks since cholecystectomy. ? Recent CT abdomen/pelvis, gallbladder ultrasound 05/06/2024 did show multiple gallstones with mild wall thickening. Patient has since had cholecystectomy about 2 weeks ago at a hospital in [place]. ? However, gastric emptying study on 05/08/2024 did show abnormally low gastric emptying. Patient does have history of diabetes, but had been taken off metformin as she was told that she no longer needed it. ? Repeat CT abdomen/pelvis before admission did not show acute findings including extra/intrahepatic ductal dilatation or pancreatic mass to explain hyperbilirubinemia. Did show chronic duodenal diverticuli, and colonic diver ticulosis. ? Subacute abdominal pain might be related to recent finding of gastroparesis, but cannot exclude constipation, irritable bowel syndrome. ? Will trial metoclopramide 5 mg 3 times daily with meals. ? GI consulted, plan to evaluate patient in the morning. N.p.o. at midnight for possible MRCP in the morning. ? Follow-up hemoglobin A1c, TSH in the morning. ? Follow-up requested medical records for hospitalization for cholecystectomy in [place]. ? Follow-up morning BMP, magnesium. IV magnesium 2 g given in the ED #Hyperbilirubinemia #Transaminitis ? Total bilirubin 2.6, direct bilirubin 1.1, AST/ALT 79/80, ALP <20 on admission. These were normal levels on 05/08/2024. ? Patient denies recent travel history, fever/chills, excessive Tylenol use, nausea/vomiting. Does take lovastatin, dose not changed recently. ? Did have cholecystectomy about 2 weeks ago which can cause transaminitis, however would not expected to prolong this much. ? CT abdomen/pelvis did not show suspicious liver lesions, including common bile duct dilatation to suggest possible pancreatic mass. ALP also low making duct obstruction less likely. ? Differentials include viral illness, hepatitis, intravascular hemolysis. Less likely be Gilbert's syndrome given elevation in conjugated bilirubin. ? Follow-up morning CMP. If hyperbilirubinemia, transaminitis still present and not improved consider hepatitis panel, intravascular hemolysis workup. ? Hold home lovastatin. #History of diabetes ? Follow-up morning A1c, especially with new finding of gastroparesis. ? LDSSI, ACHS glucose checks. #History of hypothyroidism #Subclinical hyperthyroidism ? Elevated T4 13.4, normal TSH. ? Takes levothyroxine 50 mcg. Will need to ask if patient has been taking more than prescribed tomorrow as patient is very fatigued tonight. ? Will restart levothyroxine at a lower dose of 25 mcg. #Hypertension ? Resumed home lisinopril, carvedilol. CODE STATUS: Full code DVT prophylaxis: Lovenox 40 mg
[2024-05-31 21:14] LABS: POC Glucose,Bedside 136 (70-110)
[2024-06-01] VITALS: BP 131/85; BP 143/78; PULSE 85; PULSE 91; RESP 16; RESP 18; TEMP 36.8; TEMP 37.1; O2SAT 97; O2SAT 99
[2024-06-01] MEDS: LACTATED RINGERS 1000ML 1,000 ML 100 ML IV ×2 (00:55→10:36)
[2024-06-01] MEDS: TRAZODONE 50MG TABLET 25 MG PO (01:11)
--- NOTE | 2024-06-01 04:19 | PC.NURSE ---
68 yo female pt is A/O X 4. She has remained anxious through the night and has difficulty answering questions, looking to her family and/or avoiding the questions. She had increased anxiety when writer producer instructed that she needed to be NPO after MN. FSBS at 9 pm was 136, no insulin required. Pt requested sleep aid, Trazodone given per order which allowed pt to sleep some. Pt verbalized anxiety r/t tests planned . Pt did eat ice cream and has had some liquids earlier in the shift. LR infusing at 100 ml/hr. Pt also had small BM this shift. She is able to ambulate to BR with standby assist. Spouse at bedside.
[2024-06-01 06:10] LABS: POC Glucose,Bedside 99 (70-110)
[2024-06-01 06:27] LABS: Albumin Level 3.2 g/dl (3.5-5.0); Chloride 104 mmol/L (98-107)
[2024-06-01 06:28] LABS: Potassium 3.4 mmoL/L (3.5-5.1); Sodium 136 mmol/L (136-145)
[2024-06-01 06:29] LABS: Basophils % 0.7 % (0.1-2.0); Eosinophils # 0.1 K/mm3 (0.0-0.4); Eosinophils % 2.6 % (0.1-12.0); Hematocrit 33.1 % (37.0-47.0); Lymphocytes # 1.2 K/mm3 (0.7-4.5); Lymphocytes % 26.5 % (10-50); Mean Corpuscular HGB Conc 33.3 g/dL (31.8-35.4); Mean Corpuscular Hemoglobin 32.4 pg (27.0-31.2); Mean Corpuscular Volume 97.4 fl (81-99); Mean Platelet Volume 8.2 fl (7.4-10.4); Monocytes # 0.3 K/mm3 (0.1-1.0); Monocytes % 7.3 % (1.7-9.3); Neutrophils # 2.9 K/mm3 (1.8-7.8); Neutrophils % 62.9 % (37.0-80.0); Platelet Count 158 K/mm3 (142-424); Red Cell Distribution Width 14.5 % (11.5-17.5); White Blood Count 4.6 K/mm3 (4.8-10.8)
[2024-06-01 06:30] LABS: Alanine Aminotransferase 57 U/L (12-78); Alkaline Phosphatase 42 U/L (38-126); Anion Gap 11.4 mEq/L (5-15); Aspartate Amino Transferase 45 U/L (14-36); Bilirubin,Total 1.5 mg/dl (0.2-1.3); Blood Urea Nitrogen 13 mg/dl (7-17); Carbon Dioxide 24 mmol/L (22.0-30.0); Creatinine Clearance Estimated 42 mL/min (50-200); Estimated Glomerular Filt Rate 71 ml/min (>60); GFR (African American) 86 ML/MIN (>60)
[2024-06-01 06:31] LABS: Albumin/Globulin Ratio 1.3 (1.1-1.8); Globulin 2.4 g/dL (1.3-3.2); Glucose 99 mg/dl (74-100); Magnesium 1.9 mg/dl (1.6-2.3); Total Protein,Serum 5.6 g/dl (6.3-8.2)
[2024-06-01 06:57] LABS: Thyroid Stimulating Hormone 0.32 uIU/mL (0.465-4.68)
[2024-06-01 07:08] LABS: Hemoglobin A1C 6.4 % (4.0-6.0)
--- NOTE | 2024-06-01 07:44 | HMH.PHAINT1 ---
Pharmacy Intervention Comments: Home medication list verified using list from pharmacy.
[2024-06-01 08:00] VITALS: BP 148/79; PULSE 88; RESP 19; TEMP 37.1; O2SAT 98
[2024-06-01] MEDS: CARVEDILOL 12.5MG TABLET 12.5 MG PO (08:19)
[2024-06-01] MEDS: LISINOPRIL 2.5MG TABLET 2.5 MG PO (08:20)
[2024-06-01] MEDS: LEVOTHYROXINE 25MCG (0.025MG) TAB 25 MCG PO (08:20)
[2024-06-01] MEDS: ENOXAPARIN 40MG/0.4ML SYRINGE 40 MG SQ (08:20)
[2024-06-01 10:49] LABS: POC Glucose,Bedside 110 (70-110)
[2024-06-01] MEDS: SENNOSIDES 8.6MG/DOCUSATE 50MG TABLET 1 TAB PO (11:26)
--- NOTE | 2024-06-01 12:11 | EXP.GE.CONS ---
History of Present Illness *Admission Date: 05/31/24 *History of present illness: This is a 68-year-old female with a history of hypothyroidism, DM2, HTN, CKD, who was having abdominal pain after eating for at least 6 weeks. She is status post cholecystectomy 2 weeks ago. After surgery, patient was placed on a bland diet which she did not like. She also reports decreased appetite since cholecystectomy and 2 days prior to hospital admission she had stopped eating. She is fearful of getting abdominal pain after eating. She reports not knowing how to eat because nothing is sounds good . She has had both constipation and diarrhea since cholecystectomy as well. She denies nausea and vomiting. Upon arrival in the ER the patient did have elevated bilirubin of 2.6, AST 79, ALT of 80 and an alk phos less than 20. CT abdomen pelvis was unremarkable. Patient was admitted for failure to thrive, decreased p.o. intake and electrolyte abnormalities. Overnight the patient was treated with IV fluids and electrolyte replacement. She has had improvement of her LFTs. Currently her bilirubin has improved to 1.5, AST improved to 45, ALT improved to 57 and alk phos is at 42. On a side note, the patient was diagnosed with gastroparesis with a gastric emptying study showing a T1/2 time equal to 113 minutes. [facility] Disclaimer: The information contained in this section may have been updated after the patient was seen, as this information can be updated by other users. Medical History (Updated 06/01/24 @ 12:20 by Christie Valerio APRN) Brain aneurysm Chronic kidney disease Hyperlipemia Hypertension Diabetes mellitus Surgical History Previous back surgery Family History Other Diabetes Hypertension Social History (Updated 05/31/24 @ 19:07 by Sruthi Whitmore RN) Smoking Status: Never smoker alcohol intake: never current occupational status: retired Travel in the last 8 weeks: None Review of Systems Review of Systems Review of systems:: pertinent systems reviewed and negative unless documented below Constitutional Constitutional: Reports system reviewed and no additional complaints, except as documented, Reports anorexia, Reports poor appetite and Reports weight loss Eyes Eyes: Reports system reviewed and no additional complaints, except as documented ENT Ears, Nose, Mouth, and Throat: Reports system reviewed and no additional complaints, except as documented and Denies dysphagia *Cardiovascular Cardiovascular: Reports system reviewed and no additional complaints, except as documented and Denies dyspnea *Respiratory Respiratory: Reports system reviewed and no additional complaints, except as documented, Denies cough and Denies dyspnea *Gastrointestinal Gastrointestinal: Reports abdominal pain, Reports change in bowel habits, Reports constipation, Reports diarrhea, Denies dysphagia, Reports early satiety, Reports nausea and Denies vomiting Comments: Loss of appetite *Genitourinary Genitourinary: Reports system reviewed and no additional complaints, except as documented *Musculoskeletal Musculoskeletal: Reports system reviewed and no additional complaints, except as documented Integumentary/Breasts Skin/Breast: Reports system reviewed and no additional complaints, except as documented *Neurologic Neurologic: Reports system reviewed and no additional complaints, except as documented Psychiatric Psychiatric: Reports change in appetite Comments: Fear of eating Endocrine Endocrine: Reports system reviewed and no additional complaints, except as documented Meds Home Medications and Allergies Home Medications ?Medication ?Instructions ?Recorded ?Confirmed ?Type alendronate 70 mg tablet 70 mg PO FR 05/06/24 05/31/24 History carvedilol 12.5 mg tablet 12.5 mg PO BID 05/06/24 05/31/24 History levothyroxine 50 mcg tablet 50 mcg PO DAILY 05/06/24 05/31/24 History lisinopril 2.5 mg tablet 2.5 mg PO DAILY 05/06/24 05/31/24 History lovastatin 20 mg tablet 20 mg PO HS 05/06/24 05/31/24 History omeprazole 40 mg capsule,delayed 40 mg PO DAILY 06/01/24 06/01/24 History release New Prescriptions to Start Prescriptions: Allergies Allergy/AdvReac Type Severity Reaction Status Date / Time sulfamethoxazole Allergy Verified 03/25/24 12:50 [From Bactrim] trimethoprim [From Bactrim] Allergy Verified 03/25/24 12:50 Exam (Inpt) Vital signs and Labs for Last 24 Hours: Temp Pulse Resp BP Pulse Ox O2 Del Method 98.7 F 88 19 148/79 H 98 Room Air 06/01/24 08:00 06/01/24 08:00 06/01/24 08:00 06/01/24 08:00 06/01/24 08:00 06/01/24 10:43 Laboratory Results - last 24 hr 05/31/24 13:00: WBC 5.5, RBC 4.01 L, Hgb 12.9, Hct 39.3, MCV 97.9, MCH 32.2 H, MCHC 32.9, RDW 14.5, Plt Count 194, MPV 8.8, Neut % (Auto) 67.3, Lymph % (Auto) 23.6, [place] % (Auto) 6.0, Eos % (Auto) 2.5, Baso % (Auto) 0.7, Neut # (Auto) 3.7, Lymph # (Auto) 1.3, [place] # (Auto) 0.3, Eos # (Auto) 0.1, Baso # (Auto) 0.0, Sodium 135 L, Potassium 5.3 H, Chloride 104, Carbon Dioxide 25, Anion Gap 11.3, BUN 21 H, Creatinine 1.00, Estimated Creat Clear 44, Estimated GFR 55 L, Est GFR ( Amer) 67, Glucose 144 H, Calcium 9.8, Phosphorus 3.2, Magnesium 1.5 L, Total Bilirubin 2.6 H, Direct Bilirubin 1.1 H, AST 79 H, ALT 80 H, Alkaline Phosphatase < 20 L, Total Protein 7.7 D, Albumin 4.6, Globulin 3.1, Albumin/Globulin Ratio 1.5, Lipase 135, TSH 0.49, Thyroxine (T4) 13.7 H, HIV 1&2 Antibody Rapid Nonreactive 05/31/24 13:16: VBG pH 7.40, VBG pCO2 41.8, VBG pO2 35.5, VBG HCO3 25.0, VBG Total CO2 26.3, VBG O2 Saturation 68.3, VBG Base Excess 0.1, VBG Lactic Acid 1.7 05/31/24 17:43: Urine Color Yellow, Urine Appearance Clear, Urine pH 6.0, Ur Specific [place] 1.010, Urine Protein Negative, Urine Glucose (UA) Negative, Urine Ketones 1+, Urine Blood Negative, Urine Nitrate Negative, Urine Bilirubin Negative, Urine Urobilinogen 1.0, Ur Leukocyte Esterase Negative, Urine RBC None, Urine WBC 3-5, Ur Squamous Epith Cells 3-5 05/31/24 20:56: POC Glucose 136 H 06/01/24 05:38: WBC 4.6 L, RBC 3.40 L, Hgb 11.0 L D, Hct 33.1 L, MCV 97.4, MCH 32.4 H, MCHC 33.3, RDW 14.5, Plt Count 158, MPV 8.2, Neut % (Auto) 62.9, Lymph % (Auto) 26.5, [place] % (Auto) 7.3, Eos % (Auto) 2.6, Baso % (Auto) 0.7, Neut # (Auto) 2.9, Lymph # (Auto) 1.2, [place] # (Auto) 0.3, Eos # (Auto) 0.1, Baso # (Auto) 0.0, Sodium 136, Potassium 3.4 L D, Chloride 104, Carbon Dioxide 24, Anion Gap 11.4, BUN 13 D, Creatinine 0.80, Estimated Creat Clear 42, Estimated GFR 71, Est GFR ( Amer) 86 D, Glucose 99 D, Hemoglobin A1c 6.4 H, Calcium 9.0, Magnesium 1.9 D, Total Bilirubin 1.5 H, AST 45 H D, ALT 57 D, Alkaline Phosphatase 42, Total Protein 5.6 L D, Albumin 3.2 L D, Globulin 2.4, Albumin/Globulin Ratio 1.3, TSH 0.32 L D 06/01/24 05:56: POC Glucose 99 06/01/24 10:39: POC Glucose 110 I & O for Labs for Last 24 Hours: Intake & Output 05/30/24 05/31/24 06/01/24 06/02/24 11:59 11:59 11:59 11:59 Intake Total 1425 Output Total 0 Balance 1425 Weight 5.262 kg Constitutional: no acute distress, thin and cooperative Head: Present normocephalic and atraumatic Neck: Present normal inspection Respiratory: Present CTA bilaterally; Absent rhonchi, stridor or wheezes Cardiac: Present Reg Rate and Rhythm GI: Present soft, tenderness (Mild tenderness to palpation) and normal bowel sounds Extremities: Present normal inspection Skin: Present intact Results Labs 06/01/24 05:38 06/01/24 05:38 Labs: Laboratory Results - last 24 hr 05/31/24 13:00: WBC 5.5, RBC 4.01 L, Hgb 12.9, Hct 39.3, MCV 97.9, MCH 32.2 H, MCHC 32.9, RDW 14.5, Plt Count 194, MPV 8.8, Neut % (Auto) 67.3, Lymph % (Auto) 23.6, [place] % (Auto) 6.0, Eos % (Auto) 2.5, Baso % (Auto) 0.7, Neut # (Auto) 3.7, Lymph # (Auto) 1.3, [place] # (Auto) 0.3, Eos # (Auto) 0.1, Baso # (Auto) 0.0, Sodium 135 L, Potassium 5.3 H, Chloride 104, Carbon Dioxide 25, Anion Gap 11.3, BUN 21 H, Creatinine 1.00, Estimated Creat Clear 44, Estimated GFR 55 L, Est GFR ( Amer) 67, Glucose 144 H, Calcium 9.8, Phosphorus 3.2, Magnesium 1.5 L, Total Bilirubin 2.6 H, Direct Bilirubin 1.1 H, AST 79 H, ALT 80 H, Alkaline Phosphatase < 20 L, Total Protein 7.7 D, Albumin 4.6, Globulin 3.1, Albumin/Globulin Ratio 1.5, Lipase 135, TSH 0.49, Thyroxine (T4) 13.7 H, HIV 1&2 Antibody Rapid Nonreactive 05/31/24 13:16: VBG pH 7.40, VBG pCO2 41.8, VBG pO2 35.5, VBG HCO3 25.0, VBG Total CO2 26.3, VBG O2 Saturation 68.3, VBG Base Excess 0.1, VBG Lactic Acid 1.7 05/31/24 17:43: Urine Color Yellow, Urine Appearance Clear, Urine pH 6.0, Ur Specific [place] 1.010, Urine Protein Negative, Urine Glucose (UA) Negative, Urine Ketones 1+, Urine Blood Negative, Urine Nitrate Negative, Urine Bilirubin Negative, Urine Urobilinogen 1.0, Ur Leukocyte Esterase Negative, Urine RBC None, Urine WBC 3-5, Ur Squamous Epith Cells 3-5 05/31/24 20:56: POC Glucose 136 H 06/01/24 05:38: WBC 4.6 L, RBC 3.40 L, Hgb 11.0 L D, Hct 33.1 L, MCV 97.4, MCH 32.4 H, MCHC 33.3, RDW 14.5, Plt Count 158, MPV 8.2, Neut % (Auto) 62.9, Lymph % (Auto) 26.5, [place] % (Auto) 7.3, Eos % (Auto) 2.6, Baso % (Auto) 0.7, Neut # (Auto) 2.9, Lymph # (Auto) 1.2, [place] # (Auto) 0.3, Eos # (Auto) 0.1, Baso # (Auto) 0.0, Sodium 136, Potassium 3.4 L D, Chloride 104, Carbon Dioxide 24, Anion Gap 11.4, BUN 13 D, Creatinine 0.80, Estimated Creat Clear 42, Estimated GFR 71, Est GFR ( Amer) 86 D, Glucose 99 D, Hemoglobin A1c 6.4 H, Calcium 9.0, Magnesium 1.9 D, Total Bilirubin 1.5 H, AST 45 H D, ALT 57 D, Alkaline Phosphatase 42, Total Protein 5.6 L D, Albumin 3.2 L D, Globulin 2.4, Albumin/Globulin Ratio 1.3, TSH 0.32 L D 06/01/24 05:56: POC Glucose 99 06/01/24 10:39: POC Glucose [address] scan - abdomen: report reviewed Assessment and Plan *Assessment and plan (1) Gastroparesis: Status: Acute Category: Medical Code(s): K31.84 - Gastroparesis (2) Failure to thrive: Status: Acute Category: Medical (3) Abdominal pain: Status: Acute Qualifiers: Abdominal location: unspecified location Qualified Code(s): R10.9 - Unspecified abdominal pain Category: Medical Code(s): R10.9 - Unspecified abdominal pain (4) Decreased oral intake: Status: Acute Category: Medical Code(s): R63.8 - Other symptoms and signs concerning food and fluid intake (5) Loss of appetite: Status: Acute Category: Medical Code(s): R63.0 - Anorexia (6) Elevated liver enzymes: Status: Acute Category: Medical Code(s): R74.8 - Abnormal levels of other serum enzymes Plan Send 68-year-old female with a recent diagnosis of gastroparesis, 2 weeks status post cholecystectomy has had significant loss of appetite and fear about eating because of the abdominal pain that has been going on prior to her surgery. Feels significantly better this morning after IV fluids overnight. Incidental finding of elevated liver enzymes upon arrival in the ER with a bilirubin 2.6, AST of 79, ALT of 80 and an alk phos less than 20. CT scan was unremarkable no intraoral hepatic or extrahepatic biliary ductal dilation. No signs of common bile duct or pancreatic duct abnormalities. After rehydration this morning liver enzymes have improved with bilirubin down to 1.5, AST down to 45, ALT down to 57 and alk phos of 42. She does have some abdominal discomfort secondary to her recent surgery but all symptoms improved overnight. I feel this is a postcholecystectomy enzyme elevation and as it is improving, does not need MRCP. If she has a rebound increase in her liver enzymes especially bilirubin, or if her abdominal pain especially right upper quadrant pain worsens, then MRCP would be warranted. Discussed her diagnosis of gastroparesis at length, likely contributing to her loss of appetite in conjunction with recent surgery. We discussed expected postsurgical side effects after cholecystectomy. We discussed small meals multiple times a day. We discussed the possibility of the addition of Reglan to improve gastric emptying and secondarily improve appetite. I would like to see this patient in the office after discharge for follow-up with the elevated liver enzymes and her gastroparesis/loss of appetite.
[2024-06-01 12:19] VITALS: BMI 19.5
--- NOTE | 2024-06-01 12:50 | EXP.DC.SUM ---
General Admission date:: 05/31/24 Discharge date: 06/01/24 HPI HPI HPI: This is a 68-year-old female with a history of hypothyroidism, DM2, HTN, CKD, who was having abdominal pain after eating for at least 6 weeks. She is status post cholecystectomy 2 weeks ago. After surgery, patient was placed on a bland diet which she did not like. She also reports decreased appetite since cholecystectomy and 2 days prior to hospital admission she had stopped eating. She is fearful of getting abdominal pain after eating. She reports not knowing how to eat because nothing is sounds good . She has had both constipation and diarrhea since cholecystectomy as well. She denies nausea and vomiting. Upon arrival in the ER the patient did have elevated bilirubin of 2.6, AST 79, ALT of 80 and an alk phos less than 20. CT abdomen pelvis was unremarkable. Patient was admitted for failure to thrive, decreased p.o. intake and electrolyte abnormalities. Overnight the patient was treated with IV fluids and electrolyte replacement. She has had improvement of her LFTs. Currently her bilirubin has improved to 1.5, AST improved to 45, ALT improved to 57 and alk phos is at 42. On a side note, the patient was diagnosed with gastroparesis with a gastric emptying study showing a T1/2 time equal to 113 minutes. Hospital Course Hospital Course Hospital Course: Kerri Miranda is a 68-year-old female with a medical history significant for recent cholecystectomy 2 weeks ago, hypothyroidism, type 2 diabetes, hypertension, CKD, osteoporosis who presents after became concerned of decreased p.o. intake, and 5 pound weight loss in 2 weeks since cholecystectomy. Patient states she would not have come to the hospital if it were not for her . Since cholecystectomy, patient has been on a bland GI soft diet which patient states she does not like. She states she has had a decreased appetite since cholecystectomy and is having hard time finding things she likes. She states she also is fearful of getting abdominal pain after eating which she has been experiencing for about 6 weeks now. She describes abdominal pain as mostly lower and sometimes upper sometime soon after, or delayed after eating. Denies nausea/vomiting. Endorses some diarrhea since cholecystectomy, but has become more constipation over the past 2 days. She denies any significant life changes, including stressors, anxiety/depression, recent travel, fevers/chills. Workup in the ED significant for potassium 5.3 magnesium 1.5, total bilirubin 2.6, direct bilirubin 1.1, AST/ALT 79/80, ALP <20, T4 13.7, TSH normal. UA unremarkable. CT abdomen/pelvis did not show acute findings. Case was discussed with the ED provider and decision was made to admit patient for failure to thrive, decreased p.o. intake, electrolyte abnormalities. Disturbances improved by the following morning. GI evaluated patient. No inpatient management at this time. Concern for component of gastroparesis as well as anxiety about her abdominal pain postcholecystectomy. Recommend advancing diet and discharge home with close outpatient follow-up for further management. Problems addressed as follows: #Failure to thrive #Decreased p.o. intake, appetite #Hyperkalemia, hypomagnesemia #Gastroparesis #Abdominal pain ? Has had generalized abdominal pain, mostly in the lower quadrants, for about 6 weeks. Has not had abdominal pains before this. Denies nausea/vomiting. Patient is also not a good historian. Describes 5 pound weight loss in 2 weeks since cholecystectomy. Recent CT abdomen/pelvis, gallbladder ultrasound 05/06/2024 did show multiple gallstones with mild wall thickening. Patient has since had cholecystectomy about 2 weeks ago at a hospital in [place]. However, gastric emptying study on 05/08/2024 did show abnormally low gastric emptying. Patient does have history of diabetes, but had been taken off metformin as she was told that she no longer needed it. Repeat CT abdomen/pelvis before admission did not show acute findings including extra/intrahepatic ductal dilatation or pancreatic mass to explain hyperbilirubinemia. Did show chronic duodenal diverticuli, and colonic diverticulosis. Subacute abdominal pain might be related to recent finding of gastroparesis, but cannot exclude constipation, irritable bowel syndrome. Patient was started on metoclopramide 5 mg 3 times a day. Also started on bowel regimen. Has been having hard stools every few days. GI was consulted, recommend bowel regimen and Reglan. Patient otherwise stable to discharge home. Tolerating p.o. intake but hesitant to eat due to fear of pain. Counseled on need to address bowel regimen and wean off once having 1-2 soft stools a day. Patient and family understand. Concern her anxiety under pens her ability to advance her diet. #Hyperbilirubinemia #Transaminitis ? Total bilirubin 2.6, direct bilirubin 1.1, AST/ALT 79/80, ALP <20 on admission. These were normal levels on 05/08/2024. Improved on morning of discharge. No active signs of hepatitis. CT with no suspicious liver lesions or bile duct dilatation. Held statin during admission. Recommend repeat labs in 1 to 2 weeks. #History of diabetes ? A1c 6.4. With diet. No indication for further medications. Controlled at this time #History of hypothyroidism #Subclinical hyperthyroidism ? Elevated T4 13.4, normal TSH. Takes levothyroxine 50 mcg. Resume levothyroxine 50 mcg daily #Hypertension: Resumed home lisinopril, carvedilol. Total time spent on discharge 32 minutes in counseling, documentation, chart review, and direct care with patient. Exam Data for Last 24 hours Vital signs and Labs for Last 24 Hours: Temp Pulse Resp BP Pulse Ox O2 Del Method 98.7 F 88 19 148/79 H 98 Room Air 06/01/24 08:00 06/01/24 08:00 06/01/24 08:00 06/01/24 08:00 06/01/24 08:00 06/01/24 12:41 Laboratory Results - last 24 hr 05/31/24 13:00: WBC 5.5, RBC 4.01 L, Hgb 12.9, Hct 39.3, MCV 97.9, MCH 32.2 H, MCHC 32.9, RDW 14.5, Plt Count 194, MPV 8.8, Neut % (Auto) 67.3, Lymph % (Auto) 23.6, [place] % (Auto) 6.0, Eos % (Auto) 2.5, Baso % (Auto) 0.7, Neut # (Auto) 3.7, Lymph # (Auto) 1.3, [place] # (Auto) 0.3, Eos # (Auto) 0.1, Baso # (Auto) 0.0, Sodium 135 L, Potassium 5.3 H, Chloride 104, Carbon Dioxide 25, Anion Gap 11.3, BUN 21 H, Creatinine 1.00, Estimated Creat Clear 44, Estimated GFR 55 L, Est GFR ( Amer) 67, Glucose 144 H, Calcium 9.8, Phosphorus 3.2, Magnesium 1.5 L, Total Bilirubin 2.6 H, Direct Bilirubin 1.1 H, AST 79 H, ALT 80 H, Alkaline Phosphatase < 20 L, Total Protein 7.7 D, Albumin 4.6, Globulin 3.1, Albumin/Globulin Ratio 1.5, Lipase 135, TSH 0.49, Thyroxine (T4) 13.7 H, HIV 1&2 Antibody Rapid Nonreactive 05/31/24 13:16: VBG pH 7.40, VBG pCO2 41.8, VBG pO2 35.5, VBG HCO3 25.0, VBG Total CO2 26.3, VBG O2 Saturation 68.3, VBG Base Excess 0.1, VBG Lactic Acid 1.7 05/31/24 17:43: Urine Color Yellow, Urine Appearance Clear, Urine pH 6.0, Ur Specific [place] 1.010, Urine Protein Negative, Urine Glucose (UA) Negative, Urine Ketones 1+, Urine Blood Negative, Urine Nitrate Negative, Urine Bilirubin Negative, Urine Urobilinogen 1.0, Ur Leukocyte Esterase Negative, Urine RBC None, Urine WBC 3-5, Ur Squamous Epith Cells 3-5 05/31/24 20:56: POC Glucose 136 H 06/01/24 05:38: WBC 4.6 L, RBC 3.40 L, Hgb 11.0 L D, Hct 33.1 L, MCV 97.4, MCH 32.4 H, MCHC 33.3, RDW 14.5, Plt Count 158, MPV 8.2, Neut % (Auto) 62.9, Lymph % (Auto) 26.5, [place] % (Auto) 7.3, Eos % (Auto) 2.6, Baso % (Auto) 0.7, Neut # (Auto) 2.9, Lymph # (Auto) 1.2, [place] # (Auto) 0.3, Eos # (Auto) 0.1, Baso # (Auto) 0.0, Sodium 136, Potassium 3.4 L D, Chloride 104, Carbon Dioxide 24, Anion Gap 11.4, BUN 13 D, Creatinine 0.80, Estimated Creat Clear 42, Estimated GFR 71, Est GFR ( Amer) 86 D, Glucose 99 D, Hemoglobin A1c 6.4 H, Calcium 9.0, Magnesium 1.9 D, Total Bilirubin 1.5 H, AST 45 H D, ALT 57 D, Alkaline Phosphatase 42, Total Protein 5.6 L D, Albumin 3.2 L D, Globulin 2.4, Albumin/Globulin Ratio 1.3, TSH 0.32 L D 06/01/24 05:56: POC Glucose 99 06/01/24 10:39: POC Glucose 110 I & O for Last 24 hours: Intake & Output 05/29/24 05/30/24 05/31/24 06/01/24 23:59 23:59 23:59 23:59 Intake Total 1425 / 1425 Output Total 0 / 0 Balance 1425 / 1425 Weight 49.895 kg 52 kg Constitutional Constitutional: no acute distress, thin, chronically ill appearing and cooperative *Routine HEENT Exam Head: Present normocephalic Eye: Present EOMI and normal accommodation ENT: Present mucous membranes moist *Routine Neck Exam Neck: Present supple and full ROM *Routine Respiratory Exam Respiratory: Present CTA bilaterally and normal respiratory effort; Absent rhonchi, wheezes or crackles *Routine Cardiovascular Exam Cardiovascular: Present RRR and Normal S1 *Routine Abdominal Exam Abdominal: Present soft, normoactive bowel sounds and tenderness (Mild, nonfocal); Absent distended, rebound or guarding *Routine Rectal Exam Patient deferred: visual exam *Routine Exam Patient deferred: external exam *Routine Extremities Exam Extremities: Present full ROM and normal capillary refill *Routine Skin Exam Skin: Present intact and dry *Routine Neurological Exam Neurological: Present alert, oriented X3, CN II-XII intact and moving all extremities; Absent altered mental status Routine Psychiatric Exam Psychiatric: Present anxious Results Data Completed and Pending Labs on day of discharge: Labs from last 24 hours 06/01/24 06/01/24 06/01/24 10:39 05:56 05:38 WBC 4.6 L RBC 3.40 L Hgb 11.0 L D Hct 33.1 L MCV 97.4 MCH 32.4 H MCHC 33.3 RDW 14.5 Plt Count 158 MPV 8.2 Neut % (Auto) 62.9 Lymph % (Auto) 26.5 [place] % (Auto) 7.3 Eos % (Auto) 2.6 Baso % (Auto) 0.7 Neut # (Auto) 2.9 Lymph # (Auto) 1.2 [place] # (Auto) 0.3 Eos # (Auto) 0.1 Baso # (Auto) 0.0 VBG pH VBG pCO2 VBG pO2 VBG HCO3 VBG Total CO2 VBG O2 Saturation VBG Base Excess VBG Lactic Acid Sodium 136 Potassium 3.4 L D Chloride 104 Carbon Dioxide 24 Anion Gap 11.4 BUN 13 D Creatinine 0.80 Estimated Creat Clear 42 Estimated GFR 71 Est GFR ( Amer) 86 D Glucose 99 D POC Glucose 110 99 Hemoglobin A1c 6.4 H Calcium 9.0 Phosphorus Magnesium 1.9 D Total Bilirubin 1.5 H Direct Bilirubin AST 45 H D ALT 57 D Alkaline Phosphatase 42 Total Protein 5.6 L D Albumin 3.2 L D Globulin 2.4 Albumin/Globulin Ratio 1.3 Lipase TSH 0.32 L D Thyroxine (T4) Urine Color Urine Appearance Urine pH Ur Specific [place] Urine Protein Urine Glucose (UA) Urine Ketones Urine Blood Urine Nitrate Urine Bilirubin Urine Urobilinogen Ur Leukocyte Esterase Urine RBC Urine WBC Ur Squamous Epith Cells HIV 1&2 Antibody Rapid 05/31/24 05/31/24 05/31/24 20:56 17:43 13:16 WBC RBC Hgb Hct MCV MCH MCHC RDW Plt Count MPV Neut % (Auto) Lymph % (Auto) [place] % (Auto) Eos % (Auto) Baso % (Auto) Neut # (Auto) Lymph # (Auto) [place] # (Auto) Eos # (Auto) Baso # (Auto) VBG pH 7.40 VBG pCO2 41.8 VBG pO2 35.5 VBG HCO3 25.0 VBG Total CO2 26.3 VBG O2 Saturation 68.3 VBG Base Excess 0.1 VBG Lactic Acid 1.7 Sodium Potassium Chloride Carbon Dioxide Anion Gap BUN Creatinine Estimated Creat Clear Estimated GFR Est GFR ( Amer) Glucose POC Glucose 136 H Hemoglobin A1c Calcium Phosphorus Magnesium Total Bilirubin Direct Bilirubin AST ALT Alkaline Phosphatase Total Protein Albumin Globulin Albumin/Globulin Ratio Lipase TSH Thyroxine (T4) Urine Color Yellow Urine Appearance Clear Urine pH 6.0 Ur Specific [place] 1.010 Urine Protein Negative Urine Glucose (UA) Negative Urine Ketones 1+ Urine Blood Negative Urine Nitrate Negative Urine Bilirubin Negative Urine Urobilinogen 1.0 Ur Leukocyte Esterase Negative Urine RBC None Urine WBC 3-5 Ur Squamous Epith Cells 3-5 HIV 1&2 Antibody Rapid 05/31/24 13:00 WBC 5.5 RBC 4.01 L Hgb 12.9 Hct 39.3 MCV 97.9 MCH 32.2 H MCHC 32.9 RDW 14.5 Plt Count 194 MPV 8.8 Neut % (Auto) 67.3 Lymph % (Auto) 23.6 [place] % (Auto) 6.0 Eos % (Auto) 2.5 Baso % (Auto) 0.7 Neut # (Auto) 3.7 Lymph # (Auto) 1.3 [place] # (Auto) 0.3 Eos # (Auto) 0.1 Baso # (Auto) 0.0 VBG pH VBG pCO2 VBG pO2 VBG HCO3 VBG Total CO2 VBG O2 Saturation VBG Base Excess VBG Lactic Acid Sodium 135 L Potassium 5.3 H Chloride 104 Carbon Dioxide 25 Anion Gap 11.3 BUN 21 H Creatinine 1.00 Estimated Creat Clear 44 Estimated GFR 55 L Est GFR ( Amer) 67 Glucose 144 H POC Glucose Hemoglobin A1c Calcium 9.8 Phosphorus 3.2 Magnesium 1.5 L Total Bilirubin 2.6 H Direct Bilirubin 1.1 H AST 79 H ALT 80 H Alkaline Phosphatase < 20 L Total Protein 7.7 D Albumin 4.6 Globulin 3.1 Albumin/Globulin Ratio 1.5 Lipase 135 TSH 0.49 Thyroxine (T4) 13.7 H Urine Color Urine Appearance Urine pH Ur Specific [place] Urine Protein Urine Glucose (UA) Urine Ketones Urine Blood Urine Nitrate Urine Bilirubin Urine Urobilinogen Ur Leukocyte Esterase Urine RBC Urine WBC Ur Squamous Epith Cells HIV 1&2 Antibody Rapid Nonreactive DS: Diagnosis Discharge Diagnosis (1) Gastroparesis: Status: Acute Code(s): K31.84 - Gastroparesis (2) Failure to thrive: Status: Acute (3) Abdominal pain: Status: Acute Code(s): R10.9 - Unspecified abdominal pain Qualifiers: Abdominal location: unspecified location Qualified Code(s): R10.9 - Unspecified abdominal pain (4) Decreased oral intake: Status: Acute Code(s): R63.8 - Other symptoms and signs concerning food and fluid intake (5) Loss of appetite: Status: Acute Code(s): R63.0 - Anorexia (6) Elevated liver enzymes: Status: Acute Code(s): R74.8 - Abnormal levels of other serum enzymes Meds Home Medications and Allergies Home Medications ?Medication ?Instructions ?Recorded ?Confirmed ?Type alendronate 70 mg tablet 70 mg PO FR 05/06/24 05/31/24 History carvedilol 12.5 mg tablet 12.5 mg PO BID 05/06/24 05/31/24 History levothyroxine 50 mcg tablet 50 mcg PO DAILY 05/06/24 05/31/24 History lisinopril 2.5 mg tablet 2.5 mg PO DAILY 05/06/24 05/31/24 History lovastatin 20 mg tablet 20 mg PO HS 05/06/24 05/31/24 History metoclopramide HCl 5 mg tablet 5 mg PO AC 30 days #90 tabs 06/01/24 Rx omeprazole 40 mg capsule,delayed 40 mg PO DAILY 06/01/24 06/01/24 History release sennosides 8.6 mg-docusate sodium 1 tab PO BID PRN Constipation 30 06/01/24 Rx 50 mg tablet (Stimulant Laxative days #60 tabs Plus) New Prescriptions to Start Prescriptions: metoclopramide HCl Dax Rust sennosides-docusate sodium [Stimulant Laxative Plus] Dax Rust Allergies Allergy/AdvReac Type Severity Reaction Status Date / Time sulfamethoxazole Allergy Verified 03/25/24 12:50 [From Bactrim] trimethoprim [From Bactrim] Allergy Verified 03/25/24 12:50 Discharge Plan Disposition Patient Disposition: Home, Self-Care Condition: Fair Follow up Plan Follow up with: Mayra Duff [Primary Care Provider] - 06/08/24 9:30 am Christie Valerio APRN [Nurse Practitioner] - 06/16/24 9:00 am Prescriptions/Medication Reconciliation: New sennosides-docusate sodium [Stimulant Laxative Plus] 8.6-50 mg Tablet 1 tab PO BID PRN (Reason: Constipation) 30 Days Qty: 60 0RF metoclopramide HCl 5 mg Tablet 5 mg PO AC 30 Days Qty: 90 0RF Continued carvedilol 12.5 mg tablet 12.5 mg PO BID Patient Comments: TAKE 1 TABLET BY MOUTH TWICE DAILY alendronate 70 mg tablet 70 mg PO FR levothyroxine 50 mcg tablet 50 mcg PO DAILY Patient Comments: TAKE 1 TABLET BY MOUTH ONCE DAILY ON AN EMPTY STOMACH 30 MINUTES BEFORE BREAKFAST lovastatin 20 mg tablet 20 mg PO HS Patient Comments: TAKE 1 TABLET BY MOUTH ONCE DAILY WITH EVENING MEAL lisinopril 2.5 mg tablet 2.5 mg PO DAILY Patient Comments: TAKE 1 TABLET BY MOUTH ONCE DAILY omeprazole 40 mg capsule,delayed release(DR/EC) 40 mg PO DAILY Patient Comments: TAKE ONE CAPSULE BY MOUTH EVERY DAY Problem Reconciliation Problems Reviewed?: Yes Patient Discharge Instructions ACTIVITY: Continue current activity DIET: continue same diet Patient Instructions: DI for Failure to Thrive, DI for Gastroparesis Print Language: Syriac Providers Primary Care Provider: Mayra Duff Admit Provider: Dax Rust Attending Provider: Dax Rust
[2024-06-02 05:10] LABS: HCV Ab Non Reactive (Non Reactive)
[2024-06-02 08:19] LABS: HCV Ab Non Reactive (Non Reactive)
--- NOTE | 2024-06-03 14:59 | SW/DCPLANNER ---
Hospital follow up phone call x 2 no answer.
== END 2024-06-01 14:01 | disposition home or self-care (01) ==
LOC: ER 16:24 → 2ND 18:35
PROVIDERS: Student in an Organized Health Care Education/Training Program; Admitting Provider Internal Medicine Adolescent Medicine; Emergency Provider Emergency Medicine; PCP Nurse Practitioner Family; Visit Provider Internal Medicine Adolescent Medicine
DX: E11.43 Type 2 diabetes mellitus with diabetic autonomic (poly)neuropathy (principal); K59.00 Constipation, unspecified; N18.9 Chronic kidney disease, unspecified; E11.22 Type 2 diabetes mellitus with diabetic chronic kidney disease; I12.9 Hypertensive chronic kidney disease with stage 1 through stage 4 chronic kidney disease, or unspecified chronic kidney disease; E80.6 Other disorders of bilirubin metabolism; K31.84 Gastroparesis; R63.8 Other symptoms and signs concerning food and fluid intake; R63.0 Anorexia; R74.8 Abnormal levels of other serum enzymes; Z68.1 Body mass index [BMI] 19.9 or less, adult; Z79.899 Other long term (current) drug therapy
CPT/HCPCS: 36415; 74177; 80053; 81001; 82248; 82803; 82962; 83036; 83690; 83735; 84100; 84436; 84443; 85025; 86803; 87389; 93005; 99251; 99285; G0378; J1650; J2405; J3475; J7120; Q9967

== ENCOUNTER 2024-07-06 17:11 | Observation (INO) | payer MEDICARE, SELFPAY ==
[2024-07-06] VITALS (8 sets, daily range): BP systolic 95–117; BP diastolic 60–71; PULSE 67–82; RESP 16–18; TEMP 36.7–36.8; O2SAT 98–99; BMI 17.5; BMI 18.1
--- NOTE | 2024-07-06 17:59 | PC.NURSE ---
lying-121/109, hr-78 sitting- 81/58, hr 84
--- NOTE | 2024-07-06 18:01 | ED_ITS ---
<Statement entered by Michael Omalley MD - 07/06/24 23:04> I was consulted by the MIGUEL, and we discussed the complexity of the problems being addressed. I approved the treatment and management plan for this patient's care in the emergency department, thus performing a substantive portion of the medical decision making. Michael Omalley MD, LUCIUS, FACEP Discharge Plan Disposition Patient Disposition: Admitted Condition: Good Chief Complaint: Recheck/Abnormal Lab/Rx Prescriptions Prescriptions: No Action carvedilol 12.5 mg tablet 12.5 mg PO BID Patient Comments: TAKE 1 TABLET BY MOUTH TWICE DAILY alendronate 70 mg tablet 70 mg PO FR levothyroxine 50 mcg tablet 50 mcg PO DAILY Patient Comments: TAKE 1 TABLET BY MOUTH ONCE DAILY ON AN EMPTY STOMACH 30 MINUTES BEFORE BREAKFAST lovastatin 20 mg tablet 20 mg PO HS Patient Comments: TAKE 1 TABLET BY MOUTH ONCE DAILY WITH EVENING MEAL lisinopril 2.5 mg tablet 2.5 mg PO DAILY Patient Comments: TAKE 1 TABLET BY MOUTH ONCE DAILY duloxetine 30 mg capsule,delayed release(DR/EC) 30 mg PO DAILY Patient Comments: TAKE 1 CAPSULE BY MOUTH ONCE DAILY sennosides-docusate sodium [Stimulant Laxative Plus] 8.6-50 mg Tablet 1 tab PO BID PRN (Reason: Constipation) 30 Days Qty: 60 0RF Referrals Follow up/Referrals: Mayra Duff [Primary Care Provider] - See instructions Clinical Impressions Clinical Impression: Orthostatic hypotension, Therapeutic misadventure Print Language Print Language: Sammarinese Discharge ED Provider: Michael Omalley General Adult HPI General Chief complaint: Recheck/Abnormal Lab/Rx Stated complaint: weakness, dizzy, low bp Time Seen by Provider: 07/06/24 18:01 Mode of Arrival: Wheelchair Source of Information: Spouse Limitations: No Limitations Description of Symptoms (Recalled from ER Triage Doc. by RN): pt states she saw Mayra Duff in office today and was instructed to come to the ED for low blood pressure and fluids. per report pt has recently lost around 20lbs and is currently on bp medication which they think could be causing it. History of Present Illness HPI narrative: Patient presents for initially low blood pressure from her PCPs office patient has had a functional decline since March with multiple medical problems including new diagnosis of gastroparesis. She has had significant decline in her oral intake without squamation. Additionally in that same time. Patient is lost about 25 pounds presumed to nutritional deficits. Patient does have a history of type 2 diabetes mellitus however her metformin was recently stopped. She also carries a diagnosis of hypertension currently on lisinopril and metoprolol. She is not discontinued that medication however. She was started on Cymbalta approximately a month ago by her PCP was coming in today for recheck. On arrival she was noted to be significantly hypotensive down to the 80s. Patient is also reporting dizziness upon standing. She denies however chest pain fever chills hemoptysis hematochezia melena nausea vomiting diarrhea. I attempted to question the patient regarding her mental state however she was resistant to talk about those issues. Related Data Home Medications ?Medication ?Instructions ?Recorded ?Confirmed alendronate 70 mg tablet 70 mg PO FR 05/06/24 05/31/24 carvedilol 12.5 mg tablet 12.5 mg PO BID 05/06/24 05/31/24 levothyroxine 50 mcg tablet 50 mcg PO DAILY 05/06/24 05/31/24 lisinopril 2.5 mg tablet 2.5 mg PO DAILY 05/06/24 05/31/24 lovastatin 20 mg tablet 20 mg PO HS 05/06/24 05/31/24 duloxetine 30 mg capsule,delayed 30 mg PO DAILY 07/06/24 07/06/24 release Previous Rx's ?Medication ?Instructions ?Recorded sennosides 8.6 mg-docusate sodium 1 tab PO BID PRN Constipation 30 06/01/24 50 mg tablet (Stimulant Laxative days #60 tabs Plus) Allergies Allergy/AdvReac Type Severity Reaction Status Date / Time sulfamethoxazole Allergy Verified 03/25/24 12:50 [From Bactrim] trimethoprim [From Bactrim] Allergy Verified 03/25/24 12:50 PFSH [facility] Disclaimer: The information contained in this section may have been updated after the patient was seen, as this information can be updated by other users. Medical History (Updated 07/06/24 @ 20:24 by CRUZITO Harper) Brain aneurysm Chronic kidney disease Hyperlipemia Hypertension Diabetes mellitus Surgical History Previous back surgery Family History Other Diabetes Hypertension Social History (Updated 05/31/24 @ 19:07 by Sruthi Whitmore RN) Smoking Status: Never smoker alcohol intake: never current occupational status: retired Travel in the last 8 weeks: None Other Medical History Have you received the Flu Vaccine for this season: No Have you received the Pneumonia Vaccine: No ROS Obtained: Yes Systems reviewed as appropriate & no additional complaints except as documented Physical Exam General General appearance: alert and in no apparent distress Respiratory Respiratory exam: Present normal lung sounds bilaterally Cardiovascular Cardiovascular exam: Present regular rate Neurological Exam Neurological exam: Present alert and oriented X3 Psychiatric Psychiatric exam: Present flat affect Medical Decision Making Medical Records Medical records reviewed: Yes I reviewed the patient's medical records. Screening: Per USPSTF and CDC recommendations, given the prevalence of disease in our region, it is our hospital?s policy to screen for HIV and viral Hepatitis for all patients aged 18 and over and those with ongoing risk factors. Teddy Inquiry Pt receiving controlled substance: No Vital Signs: 07/06/24 17:12 07/06/24 17:55 07/06/24 19:00 Temperature 98.3 F Temperature Source Oral Pulse Rate 74 68 Pulse Rate [Right Radial] 82 Respiratory Rate 16 16 Blood Pressure 95/70 L 111/65 Blood Pressure [Right Arm] 106/63 L Blood Pressure Mean [Right Arm] 77 Blood Pressure Source Automatic Cuff Blood Pressure Source [Right Arm] Automatic Cuff Blood Pressure Position Sitting Blood Pressure Position [Right Arm] Sitting 02 Sat by Pulse Oximetry 98 98 99 Oxygen Delivery Method Room Air Room Air 07/06/24 19:04 07/06/24 19:59 07/06/24 20:07 Temperature Temperature Source Pulse Rate 69 71 71 Pulse Rate [Right Radial] Respiratory Rate 18 Blood Pressure 111/65 117/71 110/67 Blood Pressure [Right Arm] Blood Pressure Mean [Right Arm] Blood Pressure Source Automatic Cuff Blood Pressure Source [Right Arm] Blood Pressure Position Supine Blood Pressure Position [Right Arm] 02 Sat by Pulse Oximetry 99 99 99 Oxygen Delivery Method Room Air Lab Data Lab results reviewed: Yes I reviewed the patient's lab results. Lab Results 07/06/24 18:00: WBC 6.0, RBC 3.91 L, Hgb 12.5, Hct 36.3 L, MCV 92.7, MCH 32.1 H, MCHC 34.6, RDW 13.8, Plt Count 132 L, MPV 9.2, Neut % (Auto) 53.0, Lymph % (Auto) 32.9, [place] % (Auto) 6.6, Eos % (Auto) 6.4, Baso % (Auto) 1.1, Neut # (Auto) 3.2, Lymph # (Auto) 2.0, [place] # (Auto) 0.4, Eos # (Auto) 0.4, Baso # (Auto) 0.1, Sodium 134 L, Potassium 3.9, Chloride 102, Carbon Dioxide 21 L, Anion Gap 14.9, BUN 23 H, Creatinine 1.00, Estimated Creat Clear 39, Estimated GFR 55 L, Est GFR ( Amer) 67, Glucose 123 H, Calcium 9.5, Total Bilirubin 0.9, AST 75 H, ALT 115 H, Alkaline Phosphatase 34 L, Total Protein 6.2 L, Albumin 3.7, Globulin 2.5, Albumin/Globulin Ratio 1.5 07/06/24 18:00 07/06/24 18:00 Orders (Tests/Meds): ED MEDICATIONS Generic Name Dose Route Start Last Admin Trade Name Freq PRN Reason Stop Dose Admin Sodium Chloride 10 ml 07/06/24 17:56 Sodium Chloride 0.9% 10ml Flush Syringe IV 08/05/24 17:55 NEEDED PRN Maintain IV Site Discontinued Medications Generic Name Dose Route Start Last Admin Trade Name Freq PRN Reason Stop Dose Admin Cefdinir 300 mg 07/06/24 18:05 07/06/24 18:36 Cefdinir 300mg Capsule PO 07/06/24 18:06 Not Given ONCE ONE Sodium Chloride 1,000 mls @ 999 mls/hr 07/06/24 18:01 07/06/24 18:03 Sod Chlor 0.9% 1000ml Bag IV 07/06/24 19:01 999 mls/hr .Q1H1M ONE Administration ORDERS Category Date Time Status Complete Blood Count Auto Diff Stat Lab 07/06/24 18:00 Completed Comprehensive Metabolic Panel Stat Lab 07/06/24 18:00 Completed UA [Urinalysis and Microscopic] Stat Lab 07/06/24 17:55 Ordered Medical Decision Narrative: In summary patient is a 8-year-old female who presents to the emergency department for evaluation of hypotension. Patient is initially with a blood pressure of 106 and 63 with a pulse of 82 upon arrival, afebrile. Physical exam is remarkable for very flat affect, patient is a difficult historian declining to provide much in the way of insight into her thought processes currently. No focal deficits unremarkable physical findings currently. Differential diagnosis includes depression versus therapeutic misadventure versus malnutrition versus dehydration etc. Initial workup will be conducted with hematologic labs and orthostatics. Initial interventions include crystalloid bolus. Initial workup reviewed by me shows that her hematologic labs are nonactionable including normal albumin with a BUN of 23 and a creatinine of 1 with a GFR 55 which is low, she has an AST of 75 and ALT of 115 alk phos of 34 and total protein 6.2. Upon repeat evaluation after fluid resuscitation patient is still orthostatic and symptomatic with a systolic blood pressure on standing at 77 with a MAP of 55 and a heart rate of 70. Given this had interactive discussion with hospital medicine about patient management and patient will be admitted for further evaluation and care. Critical Care Critical Care Time Critical Care Time: No
[2024-07-06] MEDS: 0.9 % SODIUM CHLORIDE 1000ML 1,000 ML 999 ML IV (18:03)
[2024-07-06 18:11] LABS: Basophils # 0.1 K/mm3 (0-0.2); Basophils % 1.1 % (0.1-2.0); Eosinophils # 0.4 K/mm3 (0.0-0.4); Eosinophils % 6.4 % (0.1-12.0); Hematocrit 36.3 % (37.0-47.0); Hemoglobin 12.5 g/dL (12.2-16.2); Lymphocytes % 32.9 % (10-50); Mean Corpuscular HGB Conc 34.6 g/dL (31.8-35.4); Mean Corpuscular Hemoglobin 32.1 pg (27.0-31.2); Mean Corpuscular Volume 92.7 fl (81-99); Mean Platelet Volume 9.2 fl (7.4-10.4); Monocytes # 0.4 K/mm3 (0.1-1.0); Monocytes % 6.6 % (1.7-9.3); Neutrophils # 3.2 K/mm3 (1.8-7.8); Platelet Count 132 K/mm3 (142-424); Red Blood Count 3.91 M/mm3 (4.20-5.40); Red Cell Distribution Width 13.8 % (11.5-17.5)
--- NOTE | 2024-07-06 18:47 | ECG_ITS ---
APPROVED REPORT Exam: Resting ECG HR:73 bpm ECG Measurements Heart Rate 73 AXES AZ 136 P 66 QRSd 94 QRS 79 QT 363 T 83 QTc 389 Conclusion SINUS RHYTHM NORMAL ECG UNCONFIRMED REPORT Electronically signed by : Dax Omalley, 07/06/2024 23:06:44
[2024-07-06 18:55] LABS: Albumin Level 3.7 g/dl (3.5-5.0); Chloride 102 mmol/L (98-107); Potassium 3.9 mmoL/L (3.5-5.1); Sodium 134 mmol/L (136-145)
[2024-07-06 18:58] LABS: Alanine Aminotransferase 115 U/L (12-78); Albumin/Globulin Ratio 1.5 (1.1-1.8); Alkaline Phosphatase 34 U/L (38-126); Anion Gap 14.9 mEq/L (5-15); Aspartate Amino Transferase 75 U/L (14-36); Bilirubin,Total 0.9 mg/dl (0.2-1.3); Blood Urea Nitrogen 23 mg/dl (7-17); Calcium 9.5 mg/dl (8.4-10.2); Carbon Dioxide 21 mmol/L (22.0-30.0); Creatinine Clearance Estimated 39 mL/min (50-200); Estimated Glomerular Filt Rate 55 ml/min (>60); GFR (African American) 67 ML/MIN (>60); Globulin 2.5 g/dL (1.3-3.2); Glucose 123 mg/dl (74-100); Total Protein,Serum 6.2 g/dl (6.3-8.2)
--- NOTE | 2024-07-06 19:03 | PC.NURSE ---
pt states she is unable to void at this time.
--- NOTE | 2024-07-06 20:25 | P.HP_ITS ---
History of Present Illness *Admission Date: 07/06/24 *Reason for visit:: Dizziness *History of present illness: Patient is a 68-year-old female with past medical history of diabetes mellitus gastroparesis who presents to the hospital due to low blood pressure. According to the patient she has been feeling lightheaded, she was sent from PCP office due to low blood pressure. Patient otherwise denied chest pain shortness of breath nausea vomiting diarrhea constipation dysuria fevers and chills. [facility] Disclaimer: The information contained in this section may have been updated after the patient was seen, as this information can be updated by other users. Medical History Brain aneurysm Chronic kidney disease Hyperlipemia Hypertension Diabetes mellitus Surgical History Previous back surgery Family History Other Diabetes Hypertension Social History (Updated 07/06/24 @ 20:56 by Chidi Barragan RN) Smoking Status: Never smoker alcohol intake: never current occupational status: retired Travel in the last 8 weeks: None Other Medical History Have you received the Flu Vaccine for this season: No Have you received the Pneumonia Vaccine: No Review of Systems Review of Systems Review of systems:: pertinent systems reviewed and negative unless documented below Meds Home Medications and Allergies Home Medications ?Medication ?Instructions ?Recorded ?Confirmed ?Type carvedilol 12.5 mg tablet 12.5 mg PO BID 05/06/24 07/06/24 History levothyroxine 50 mcg tablet 50 mcg PO DAILY 05/06/24 07/06/24 History lisinopril 2.5 mg tablet 2.5 mg PO DAILY 05/06/24 07/06/24 History lovastatin 20 mg tablet 20 mg PO HS 05/06/24 07/06/24 History duloxetine 30 mg capsule,delayed 30 mg PO DAILY 07/06/24 07/06/24 History release New Prescriptions to Start Prescriptions: Allergies Allergy/AdvReac Type Severity Reaction Status Date / Time sulfamethoxazole Allergy Verified 03/25/24 12:50 [From Bactrim] trimethoprim [From Bactrim] Allergy Verified 03/25/24 12:50 Exam Data for Last 24 hours Vital signs and Labs for Last 24 Hours: Temp Pulse Resp BP Pulse Ox O2 Del Method 98.3 F 71 18 110/67 99 Room Air 07/06/24 17:12 07/06/24 20:07 07/06/24 19:04 07/06/24 20:07 07/06/24 20:07 07/06/24 19:04 Laboratory Results - last 24 hr 07/06/24 18:00: WBC 6.0, RBC 3.91 L, Hgb 12.5, Hct 36.3 L, MCV 92.7, MCH 32.1 H, MCHC 34.6, RDW 13.8, Plt Count 132 L, MPV 9.2, Neut % (Auto) 53.0, Lymph % (Auto) 32.9, [place] % (Auto) 6.6, Eos % (Auto) 6.4, Baso % (Auto) 1.1, Neut # (Auto) 3.2, Lymph # (Auto) 2.0, [place] # (Auto) 0.4, Eos # (Auto) 0.4, Baso # (Auto) 0.1, Sodium 134 L, Potassium 3.9, Chloride 102, Carbon Dioxide 21 L, Anion Gap 14.9, BUN 23 H, Creatinine 1.00, Estimated Creat Clear 39, Estimated GFR 55 L, Est GFR ( Amer) 67, Glucose 123 H, Calcium 9.5, Total Bilirubin 0.9, AST 75 H, ALT 115 H, Alkaline Phosphatase 34 L, Total Protein 6.2 L, Albumin 3.7, Globulin 2.5, Albumin/Globulin Ratio 1.5 I & O for Last 24 hours: Intake & Output 07/03/24 07/04/24 07/05/24 07/06/24 23:59 23:59 22:59 23:59 Weight 46.266 kg Constitutional Constitutional: no acute distress *Routine HEENT Exam Head: Present normocephalic Eye: Present EOMI and PERRL ENT: Present mucous membranes moist *Routine Neck Exam Neck: Present supple; Absent lymphadenopathy *Routine Respiratory Exam Respiratory: Present CTA bilaterally *Routine Cardiovascular Exam Cardiovascular: Present RRR *Routine Abdominal Exam Abdominal: Present soft and normoactive bowel sounds; Absent tenderness *Routine Rectal Exam Rectal:: deferred *Routine Genitalia Exam Genitalia:: deferred *Routine Extremities Exam Extremities: Absent cyanosis, clubbing or edema *Routine Skin Exam Skin: Present warm; Absent rash *Routine Neurological Exam Neurological: Present alert and oriented X3 Assessment and Plan *Assessment and plan (1) Orthostatic hypotension: Status: Acute Category: Medical Code(s): I95.1 - Orthostatic hypotension (2) Elevated liver enzymes: Status: Acute Category: Medical Code(s): R74.8 - Abnormal levels of other serum enzymes (3) Chronic kidney disease: Status: Acute Qualifiers: Chronic kidney disease stage: unspecified stage Qualified Code(s): N18.9 - Chronic kidney disease, unspecified Category: Medical Code(s): N18.9 - Chronic kidney disease, unspecified (4) Hypertension: Status: Acute Category: Medical Code(s): I10 - Essential (primary) hypertension (5) Diabetes mellitus: Status: Acute Category: Medical Code(s): E11.9 - Type 2 diabetes mellitus without complications Plan Patient is a 68-year-old female with past medical history of diabetes mellitus gastroparesis who presents to the hospital due to low blood pressure. According to the patient she has been feeling lightheaded, she was sent from PCP office due to low blood pressure. Patient otherwise denied chest pain shortness of breath nausea vomiting diarrhea constipation dysuria fevers and chills. Assessment and plan Dizziness with standing, walking likely due to orthostasis Hypotension likely due to medication induced and decreased p.o. intake, orthostasis Hyponatremia Transaminitis likely secondary to dehydration Start IV fluid therapy Monitor and replace electrolytes Recheck orthostatic vitals Monitor LFTs UA checked-negative for signs of infection Chronic medical conditions Diabetes mellitus-start insulin sliding scale Gastroparesis Chronic kidney disease DVT prophylaxis-heparin
--- NOTE | 2024-07-06 20:46 | PC.NURSE ---
Patient arrived to floor via wheelchair form ED at 20:35.
[2024-07-07 04:00] VITALS: BP 107/66; PULSE 84; RESP 16; TEMP 36.4; O2SAT 97; BMI 18.1
[2024-07-07 05:24] VITALS: BP 66/39; BP 79/49; BP 99/59
[2024-07-07] MEDS: 0.9 % SODIUM CHLORIDE 1000ML 1,000 ML 75 ML IV (06:24)
[2024-07-07] MEDS: 0.9 % SODIUM CHLORIDE 1000ML 500 ML 999 ML IV (06:43)
[2024-07-07 07:15] LABS: Alanine Aminotransferase 97 U/L (12-78); Albumin/Globulin Ratio 1.5 (1.1-1.8); Alkaline Phosphatase 27 U/L (38-126); Anion Gap 8.9 mEq/L (5-15); Aspartate Amino Transferase 62 U/L (14-36); Bilirubin,Total 0.9 mg/dl (0.2-1.3); Blood Urea Nitrogen 18 mg/dl (7-17); Calcium 8.7 mg/dl (8.4-10.2); Carbon Dioxide 21 mmol/L (22.0-30.0); Chloride 106 mmol/L (98-107); Creatinine Clearance Estimated 40 mL/min (50-200); Estimated Glomerular Filt Rate 62 ml/min (>60); GFR (African American) 75 ML/MIN (>60); Glucose 65 mg/dl (74-100); Potassium 3.9 mmoL/L (3.5-5.1); Sodium 132 mmol/L (136-145)
[2024-07-07 07:54] VITALS: BP 94/56; PULSE 79; RESP 16; TEMP 36.7; O2SAT 97
[2024-07-07 08:25] LABS: Microscopic, Urine URINE MICROSCOPIC (MICROSCOPIC)
[2024-07-07] MEDS: LEVOTHYROXINE 50MCG (0.05MG) TAB 50 MCG PO (08:36)
[2024-07-07] MEDS: DULOXETINE 30MG CAPSULE.DR 30 MG PO (08:37)
[2024-07-07 08:56] LABS: Appearance,Urine CLEAR (Clear); Blood, Urine Negative (Negative); Color,Urine YELLOW (Yellow); Glucose,Urine (UA) Negative (Negative); Ketones,Urine 2+ (Negative); Leukocyte Esterase,Urine Negative (Negative); Nitrate,Urine Negative (Negative); PH,Urine 5.5 (5.0-8.5); Protein,Urine Negative (Negative); Urobilinogen,Urine 0.2 EU/dl (0.2)
[2024-07-07 09:00] LABS: Bilirubin,Urine 1+ (Negative)
[2024-07-07 09:32] LABS: WBC,Urine Occasional #/hpf (0-3)
[2024-07-07 10:53] LABS: POC Glucose,Bedside 75 (70-110)
[2024-07-07] MEDS: POLYETHYLENE GLYCOL 3350 17 GM PACKET PO (11:48)
[2024-07-07] MEDS: SENNOSIDES 8.6MG/DOCUSATE 50MG TABLET 1 TAB PO ×2 (11:48→20:06)
--- NOTE | 2024-07-07 13:21 | SW/DCPLANNER ---
Addendum entered by Viri Mckeon 07/08/24 16:00: Patient information/order has been faxed to Carly w/ [facility] to resume home health services. Addendum entered by Viri Mckeon 07/08/24 10:33: Patient is currently established w/ [facility]. I will fax new information/order at time of discharge. Patient is agreeable to resume services. Discharge date is unknown at this time. Original Note: Discussed discharge plans w/ MD during morning rounds. Dr Rust does not feel that PT/OT is needed at this time but will order home health services at time of discharge. CM will continue to follow up w/ this patient.
[2024-07-07 16:00] VITALS: BP 153/80; PULSE 77; RESP 15; TEMP 36.9; O2SAT 97
--- NOTE | 2024-07-07 16:04 | PC.NURSE ---
Aox 4, up with assistance times one, 90's on RA, 20 g R AC ns @ 75ml/hr, fsbg achs, regular diet, psych consulted.
[2024-07-07 16:38] LABS: POC Glucose,Bedside 101 (70-110)
[2024-07-07 16:50] LABS: POC Glucose,Bedside 80 (70-110)
[2024-07-07 16:55] VITALS: BP 129/72; BP 149/73; BP 93/62
--- NOTE | 2024-07-07 17:22 | EXP.ACUTE.PN ---
Subjective *Date: 07/07/24 *Time: 17:22 Interval history: Patient states she is not eating well, though she had about half her breakfast tray. Has not had a bowel movement in at least 4 days. Stable on room air. Denies feeling weak as long as she is laying flat Medical Exam Vital signs and Labs for Last 24 Hours: Vital Signs Temp Pulse Pulse Resp BP BP BP 07/07/24 16:55 07/07/24 16:55 07/07/24 16:55 07/07/24 16:00 98.5 F 77 15 07/07/24 15:52 07/07/24 13:24 07/07/24 12:04 07/07/24 10:13 07/07/24 08:43 07/07/24 08:00 07/07/24 07:54 98.1 F 79 16 07/07/24 06:53 07/07/24 05:24 99/59 L 79/49 L 07/07/24 05:00 07/07/24 04:00 97.6 F 84 16 07/07/24 03:00 07/07/24 01:00 07/06/24 23:00 07/06/24 23:00 07/06/24 21:00 07/06/24 20:47 98.1 F 76 16 07/06/24 20:35 98.0 F 67 18 115/60 07/06/24 20:07 71 110/67 07/06/24 19:59 71 117/71 07/06/24 19:04 69 18 111/65 07/06/24 19:00 68 111/65 07/06/24 17:55 74 16 95/70 L BP BP Pulse Ox O2 Del Method 07/07/24 16:55 93/62 L 07/07/24 16:55 129/72 07/07/24 16:55 149/73 H 07/07/24 16:00 153/80 H 97 Room Air 07/07/24 15:52 Room Air 07/07/24 13:24 Room Air 07/07/24 12:04 Room Air 07/07/24 10:13 Room Air 07/07/24 08:43 Room Air 07/07/24 08:00 Room Air 07/07/24 07:54 94/56 L 97 Room Air 07/07/24 06:53 Room Air 07/07/24 05:24 66/39 L 07/07/24 05:00 Room Air 07/07/24 04:00 107/66 L 97 Room Air 07/07/24 03:00 Room Air 07/07/24 01:00 Room Air 07/06/24 23:00 Room Air 07/06/24 23:00 Room Air 07/06/24 21:00 Room Air 07/06/24 20:47 106/60 L 98 Room Air 07/06/24 20:35 Room Air 07/06/24 20:07 99 07/06/24 19:59 99 07/06/24 19:04 99 Room Air 07/06/24 19:00 99 07/06/24 17:55 98 Room Air Intake and Output 07/07/24 07/07/24 07/07/24 07:59 15:59 23:59 Intake Total 200 / 2150 700 / 2150 1250 / 2150 Output Total 0 / 0 0 / 0 0 / 0 Balance 200 / 2150 700 / 2150 1250 / 2150 Intake: Intake, Oral Amount 200 / 900 700 / 900 Intake, Total IV Amount 1250 / 1250 0.9 % Sodium Chloride 1000ML 1, 750 / 750 000 ml @ 75 mls/hr IV .[id number] [facility] [place] Rx#:[id number] 0.9 % Sodium Chloride 1000ML 500 / 500 500 ml @ 999 mls/hr IV .Q31M ONE Rx#:[id number] Output: Output, Urine Amount 0 / 0 0 / 0 0 / 0 Other: Number of Voids 1 0 Number of Unmeasured Voids 1 1 Number of Bowel Movements 1 Weight 48.035 kg Patient Weight 07/07/24 23:59 Weight 48.035 kg Laboratory Results - last 24 hr 07/06/24 18:00: WBC 6.0, RBC 3.91 L, Hgb 12.5, Hct 36.3 L, MCV 92.7, MCH 32.1 H, MCHC 34.6, RDW 13.8, Plt Count 132 L, MPV 9.2, Neut % (Auto) 53.0, Lymph % (Auto) 32.9, [place] % (Auto) 6.6, Eos % (Auto) 6.4, Baso % (Auto) 1.1, Neut # (Auto) 3.2, Lymph # (Auto) 2.0, [place] # (Auto) 0.4, Eos # (Auto) 0.4, Baso # (Auto) 0.1, Sodium 134 L, Potassium 3.9, Chloride 102, Carbon Dioxide 21 L, Anion Gap 14.9, BUN 23 H, Creatinine 1.00, Estimated Creat Clear 39, Estimated GFR 55 L, Est GFR ( Amer) 67, Glucose 123 H, Calcium 9.5, Total Bilirubin 0.9, AST 75 H, ALT 115 H, Alkaline Phosphatase 34 L, Total Protein 6.2 L, Albumin 3.7, Globulin 2.5, Albumin/Globulin Ratio 1.5 07/07/24 06:16: Sodium 132 L, Potassium 3.9, Chloride 106, Carbon Dioxide 21 L, Anion Gap 8.9, BUN 18 H, Creatinine 0.90, Estimated Creat Clear 40, Estimated GFR 62, Est GFR ( Amer) 75, Glucose 65 L D, Calcium 8.7, Total Bilirubin 0.9, AST 62 H, ALT 97 H, Alkaline Phosphatase 27 L, Total Protein 5.0 L, Albumin 3.0 L D, Globulin 2.0, Albumin/Globulin Ratio 1.5 07/07/24 06:29: POC Glucose 75 07/07/24 08:12: Urine Color Yellow, Urine Appearance Clear, Urine pH 5.5, Ur Specific [place] 1.020, Urine Protein Negative, Urine Glucose (UA) Negative, Urine Ketones 2+, Urine Blood Negative, Urine Nitrate Negative, Urine Bilirubin 1+ A, Urine Urobilinogen 0.2, Ur Leukocyte Esterase Negative, Urine RBC None, Urine WBC Occasional, Ur Squamous Epith Cells 3-5, Urine Bacteria None 07/07/24 10:02: POC Glucose 101 07/07/24 16:43: POC Glucose 80 I & O for Labs for Last 24 Hours: Intake & Output 07/04/24 07/05/24 07/06/24 07/07/24 23:59 22:59 23:59 23:59 Intake Total 2149 Output Total 0 / 0 Balance 2149 Weight 48.035 kg 48.035 kg Constitutional: Present no acute distress, thin, cachectic and chronically ill appearing Head: Present atraumatic and normocephalic ENT: Present normal exam and normal oropharynx Neck: Present normal inspection Respiratory: Present CTA bilaterally and normal respiratory effort; Absent rhonchi, wheezes or crackles Cardiac: Present Reg Rate and Rhythm GI: Present soft, tenderness and normal bowel sounds; Absent distention Rectal (female): Present deferred (female): Present deferred Extremities: Present normal inspection and full ROM Skin: Present intact Neuro: Present Grossly Intact, alert, awake, oriented x 3 and moves all extremities Comment:: Flat affect Assessment and Plan *Assessment and plan (1) Orthostatic hypotension: Status: Acute Category: Medical Code(s): I95.1 - Orthostatic hypotension (2) Elevated liver enzymes: Status: Acute Category: Medical Code(s): R74.8 - Abnormal levels of other serum enzymes (3) Chronic kidney disease: Status: Acute Qualifiers: Chronic kidney disease stage: unspecified stage Qualified Code(s): N18.9 - Chronic kidney disease, unspecified Category: Medical Code(s): N18.9 - Chronic kidney disease, unspecified (4) Hypertension: Status: Acute Category: Medical Code(s): I10 - Essential (primary) hypertension (5) Diabetes mellitus: Status: Acute Category: Medical Code(s): E11.9 - Type 2 diabetes mellitus without complications Plan Patient is a 68-year-old female with past medical history of diabetes mellitus gastroparesis who presents to the hospital due to low blood pressure. According to the patient she has been feeling lightheaded, she was sent from PCP office due to low blood pressure. Patient otherwise denied chest pain shortness of breath nausea vomiting diarrhea constipation dysuria fevers and chills. Continues to have orthostasis this morning but showing improvement in blood pressure in general. Advance diet. Monitor for improvement. Problems addressed as follows: Orthostatic hypotension Hyponatremia Transaminitis likely secondary to dehydration -Status post IV fluids overnight. Tolerating p.o. intake this morning. -Continue to hold carvedilol and lisinopril. Repeat orthostatic blood pressures this afternoon shows significant drop in systolic from 140 laying to 93 while standing. -Improving however from admission. Monitor overnight. If still orthostatic in the morning, will consider additional liter of IV fluids as a bolus -Holding on midodrine at this time. Consider in the morning if still orthostatic. -Repeat BMP and CBC ordered for the morning Depression -Patient appears depressed on exam. Denies depression however. Will increase Cymbalta to 60 mg daily. -Behavioral health consult placed, appreciate their recommendations Chronic medical conditions Diabetes mellitus-fingersticks ACHS with sliding scale insulin ACHS; A1c 6.4 on 06/01 Gastroparesis: Evaluate for need of resuming metoclopramide Constipation: Docusate senna twice daily, goal for 1 bowel movement today. Chronic kidney disease: Kidney function at baseline with BUN 18, creatinine 0.9. DVT prophylaxis-heparin Full code Diabetic diet
[2024-07-07 20:00] VITALS: BP 129/77; PULSE 68; RESP 18; TEMP 36.8; O2SAT 97
[2024-07-07] MEDS: LOVASTATIN 20 MG 1 EACH PO (20:06)
[2024-07-07 21:22] LABS: POC Glucose,Bedside 117 (70-110)
[2024-07-08 04:00] VITALS: BP 118/70; PULSE 89; RESP 16; TEMP 36.7; O2SAT 98; BMI 18.6
[2024-07-08] MEDS: PAT OWN MED ***LEVOTHYROXINE 50MCG 50 MCG PO (06:16)
[2024-07-08 06:30] LABS: POC Glucose,Bedside 81 (70-110)
[2024-07-08 07:45] LABS: Alanine Aminotransferase 105 U/L (12-78); Albumin Level 3.3 g/dl (3.5-5.0); Albumin/Globulin Ratio 1.4 (1.1-1.8); Alkaline Phosphatase 29 U/L (38-126); Anion Gap 13.6 mEq/L (5-15); Aspartate Amino Transferase 68 U/L (14-36); Bilirubin,Total 0.9 mg/dl (0.2-1.3); Blood Urea Nitrogen 11 mg/dl (7-17); Calcium 8.8 mg/dl (8.4-10.2); Carbon Dioxide 21 mmol/L (22.0-30.0); Chloride 107 mmol/L (98-107); Creatinine Clearance Estimated 42 mL/min (50-200); Estimated Glomerular Filt Rate 71 ml/min (>60); GFR (African American) 86 ML/MIN (>60); Globulin 2.3 g/dL (1.3-3.2); Glucose 81 mg/dl (74-100); Potassium 3.6 mmoL/L (3.5-5.1); Sodium 138 mmol/L (136-145); Total Protein,Serum 5.6 g/dl (6.3-8.2)
[2024-07-08 08:00] VITALS: BP 130/72; BP 80/54
[2024-07-08] MEDS: DULOXETINE 30MG CAPSULE.DR 60 MG PO (08:06)
--- NOTE | 2024-07-08 08:41 | PC.NURSE ---
pts ortho vitals: lying down- 130/72 78b 98% standing- 80/54 92b 97%
[2024-07-08] MEDS: MIDODRINE HCL 5 MG TABLET PO ×2 (09:50→13:29)
[2024-07-08] MEDS: SENNOSIDES 8.6MG/DOCUSATE 50MG TABLET 1 TAB PO (09:50)
[2024-07-08 11:38] LABS: POC Glucose,Bedside 98 (70-110)
[2024-07-08] MEDS: 0.9 % SODIUM CHLORIDE 1000ML 1,000 ML 500 ML IV (13:20)
[2024-07-08 14:15] VITALS: BP 140/75; BP 141/91; BP 163/74
--- NOTE | 2024-07-08 14:54 | P.CONS_ITS ---
History of Present Illness *Admission Date: 07/06/24 *Reason for visit:: depression *History of present illness: Patient was interviewed in her room. -she is sitting up in her chair -her is in the room with her She states that she is here cause she is indecisive about things -her says she needs to drink more water she says know -that she needs to eat; she says no -that she needs to take her medicines as they are prescribed; she says no She was started on Cymbalta last month. -she states that they just increased this today -her PCP with [facility] in [place] put her on this -she states that she has been so weak and dehydrated -then they were giving her fluids -this has given her back some of her strength -her states that for about a week before coming in here; that she wasn't even able to get up and walk around the house -that she was so weak -she had an appointment scheduled with for behavioral therapy today; but had to cancel this cause of being here in the hospital -she states that her PCP has tried to get her in with behavioral health there before -but she either refuses; or she will cancel her appointments -her drives her to the appointments -but she is hard headed and just cancels them -she states that she also doesn't like to schedule things in the winter cause of the coldness and it could snow; you never know She has a lot of noticeable anxiety. -asks her what she should do all the time -asks him if she should answer my questions in the interview -worried that she might say something wrong -doesn't want to get anyone in trouble -she states that she thought all her anxiety and worries and medical stuff would be better after she got her gallbladder removed -but she reports that this did nothing for her symptoms; they are all still there I talked to her about going to appointments and the importance of this. -she states that she knows -but she will cancel them -that there is no use in us even making the appointment -cause she already knows that she won't feel up to going [facility] Disclaimer: The information contained in this section may have been updated after the patient was seen, as this information can be updated by other users. Medical History (Updated 07/08/24 @ 15:00 by Arely Last APRN) Major depressive disorder Brain aneurysm Chronic kidney disease Hyperlipemia Hypertension Diabetes mellitus Surgical History Previous back surgery Family History Other Diabetes Hypertension Social History (Updated 07/06/24 @ 20:56 by Chidi Barragan RN) Smoking Status: Never smoker alcohol intake: never current occupational status: retired Travel in the last 8 weeks: None Review of Systems Review of Systems Review of systems:: other Meds Home Medications and Allergies Home Medications ?Medication ?Instructions ?Recorded ?Confirmed ?Type carvedilol 12.5 mg tablet 12.5 mg PO BID 05/06/24 07/06/24 History levothyroxine 50 mcg tablet 50 mcg PO DAILY 05/06/24 07/06/24 History lisinopril 2.5 mg tablet 2.5 mg PO DAILY 05/06/24 07/06/24 History lovastatin 20 mg tablet 20 mg PO HS 05/06/24 07/06/24 History duloxetine 30 mg capsule,delayed 30 mg PO DAILY 07/06/24 07/06/24 History release metoclopramide HCl 5 mg tablet 5 mg PO AC 07/07/24 07/07/24 History sennosides 8.6 mg-docusate sodium 1 tab PO BIDP PRN Constipation 07/07/24 07/07/24 History 50 mg tablet (Stimulant Laxative Plus) New Prescriptions to Start Prescriptions: Allergies Allergy/AdvReac Type Severity Reaction Status Date / Time sulfamethoxazole Allergy Verified 03/25/24 12:50 [From Bactrim] trimethoprim [From Bactrim] Allergy Verified 03/25/24 12:50 Assessment and Plan *Assessment and plan (1) Major depressive disorder: Status: Acute Category: Medical Code(s): F32.9 - Major depressive disorder, single episode, unspecified Plan 1. NO change to medicines; they increased her cymbalta today to 60mg; give this time to work. 2. Ensure she has a followup appointment with her PCP; name is Mayra with [facility] in [place]
--- NOTE | 2024-07-08 15:18 | EXP.DC.SUM ---
General Admission date:: 07/06/24 Discharge date: 07/08/24 HPI HPI HPI: Patient was interviewed in her room. -she is sitting up in her chair -her is in the room with her She states that she is here cause she is indecisive about things -her says she needs to drink more water she says know -that she needs to eat; she says no -that she needs to take her medicines as they are prescribed; she says no She was started on Cymbalta last month. -she states that they just increased this today -her PCP with [facility] in [place] put her on this -she states that she has been so weak and dehydrated -then they were giving her fluids -this has given her back some of her strength -her states that for about a week before coming in here; that she wasn't even able to get up and walk around the house -that she was so weak -she had an appointment scheduled with for behavioral therapy today; but had to cancel this cause of being here in the hospital -she states that her PCP has tried to get her in with behavioral health there before -but she either refuses; or she will cancel her appointments -her drives her to the appointments -but she is hard headed and just cancels them -she states that she also doesn't like to schedule things in the winter cause of the coldness and it could snow; you never know She has a lot of noticeable anxiety. -asks her what she should do all the time -asks him if she should answer my questions in the interview -worried that she might say something wrong -doesn't want to get anyone in trouble -she states that she thought all her anxiety and worries and medical stuff would be better after she got her gallbladder removed -but she reports that this did nothing for her symptoms; they are all still there I talked to her about going to appointments and the importance of this. -she states that she knows -but she will cancel them -that there is no use in us even making the appointment -cause she already knows that she won't feel up to going Exam Data for Last 24 hours Vital signs and Labs for Last 24 Hours: Temp Pulse Resp BP Pulse Ox O2 Del Method 98.0 F 89 16 130/72 98 Room Air 07/08/24 04:00 07/08/24 04:00 07/08/24 04:00 07/08/24 08:00 07/08/24 04:00 07/08/24 13:00 Laboratory Results - last 24 hr 07/07/24 10:02: POC Glucose 101 07/07/24 16:43: POC Glucose 80 07/07/24 21:12: POC Glucose 117 H 07/08/24 06:19: POC Glucose 81 07/08/24 07:08: Sodium 138, Potassium 3.6, Chloride 107, Carbon Dioxide 21 L, Anion Gap 13.6, BUN 11 D, Creatinine 0.80, Estimated Creat Clear 42, Estimated GFR 71, Est GFR ( Amer) 86, Glucose 81, Calcium 8.8, Total Bilirubin 0.9, AST 68 H, ALT 105 H, Alkaline Phosphatase 29 L, Total Protein 5.6 L, Albumin 3.3 L, Globulin 2.3, Albumin/Globulin Ratio 1.4 07/08/24 11:15: POC Glucose 98 I & O for Last 24 hours: Intake & Output 07/05/24 07/06/24 07/07/24 07/08/24 22:59 23:59 23:59 23:59 Intake Total 2270 / 2270 360 / 360 Output Total 0 / 0 0 / 0 Balance 2270 / 2270 360 / 360 Weight 48.035 kg 48.035 kg 49.668 kg Results Data Completed and Pending Labs on day of discharge: Labs from last 24 hours 07/08/24 07/08/24 07/08/24 11:15 07:08 06:19 Sodium 138 Potassium 3.6 Chloride 107 Carbon Dioxide 21 L Anion Gap 13.6 BUN 11 D Creatinine 0.80 Estimated Creat Clear 42 Estimated GFR 71 Est GFR ( Amer) 86 Glucose 81 POC Glucose 98 81 Calcium 8.8 Total Bilirubin 0.9 AST 68 H ALT 105 H Alkaline Phosphatase 29 L Total Protein 5.6 L Albumin 3.3 L Globulin 2.3 Albumin/Globulin Ratio 1.4 07/07/24 07/07/24 07/07/24 21:12 16:43 10:02 Sodium Potassium Chloride Carbon Dioxide Anion Gap BUN Creatinine Estimated Creat Clear Estimated GFR Est GFR ( Amer) Glucose POC Glucose 117 H 80 101 Calcium Total Bilirubin AST ALT Alkaline Phosphatase Total Protein Albumin Globulin Albumin/Globulin Ratio DS: Diagnosis Discharge Diagnosis (1) Major depressive disorder: Status: Acute Code(s): F32.9 - Major depressive disorder, single episode, unspecified Meds Home Medications and Allergies Home Medications ?Medication ?Instructions ?Recorded ?Confirmed ?Type levothyroxine 50 mcg tablet 50 mcg PO DAILY 05/06/24 07/06/24 History lovastatin 20 mg tablet 20 mg PO HS 05/06/24 07/06/24 History metoclopramide HCl 5 mg tablet 5 mg PO AC 07/07/24 07/07/24 History sennosides 8.6 mg-docusate sodium 1 tab PO BIDP PRN Constipation 07/07/24 07/07/24 History 50 mg tablet (Stimulant Laxative Plus) duloxetine 60 mg capsule,delayed 60 mg PO DAILY #30 caps 07/08/24 Rx release midodrine 5 mg tablet 2.5 mg (1/2 x 5 mg) PO TID #45 tabs 07/08/24 Rx New Prescriptions to Start Prescriptions: Dax Gauthier midodrine Dax Rust Allergies Allergy/AdvReac Type Severity Reaction Status Date / Time sulfamethoxazole Allergy Verified 03/25/24 12:50 [From Bactrim] trimethoprim [From Bactrim] Allergy Verified 03/25/24 12:50 Discharge Plan Disposition Patient Disposition: Home, Self-Care Condition: Good Follow up Plan Follow up with: Mayra Duff [Primary Care Provider] - 07/15/24 3:30 pm Prescriptions/Medication Reconciliation: New duloxetine 60 mg capsule,delayed release(DR/EC) 60 mg PO DAILY Qty: 30 0RF midodrine 5 mg Tablet 2.5 mg PO TID Qty: 45 0RF Continued levothyroxine 50 mcg tablet 50 mcg PO DAILY Patient Comments: TAKE 1 TABLET BY MOUTH ONCE DAILY ON AN EMPTY STOMACH 30 MINUTES BEFORE BREAKFAST sennosides-docusate sodium [Stimulant Laxative Plus] 8.6-50 mg tablet 1 tab PO BIDP PRN (Reason: Constipation) Patient Comments: TAKE ONE TABLET BY MOUTH TWICE DAILY NEEDED FOR constipation metoclopramide HCl 5 mg tablet 5 mg PO AC Patient Comments: TAKE ONE TABLET BY MOUTH BEFORE MEALS Held lovastatin 20 mg tablet 20 mg PO HS Hold Instructions: Hold until follows up with PCP and has repeat labs due to slight elevation in liver enzymes. Patient Comments: TAKE 1 TABLET BY MOUTH ONCE DAILY WITH EVENING MEAL Discontinued carvedilol 12.5 mg tablet 12.5 mg PO BID Patient Comments: TAKE 1 TABLET BY MOUTH TWICE DAILY lisinopril 2.5 mg tablet 2.5 mg PO DAILY Patient Comments: TAKE 1 TABLET BY MOUTH ONCE DAILY duloxetine 30 mg capsule,delayed release(DR/EC) 30 mg PO DAILY Patient Comments: TAKE 1 CAPSULE BY MOUTH ONCE DAILY Problem Reconciliation Problems Reviewed?: Yes Patient Discharge Instructions ACTIVITY: Continue current activity DIET: continue same diet Additional Instructions: Strongly encourage patient to drink between 1 and 2 L of liquid (preferably water) daily to stay adequately hydrated Patient Instructions: Orthostatic Hypotension, DI for Hypotension Print Language: Persian Providers Primary Care Provider: Mayra Duff Admit Provider: Zeeshan Dickinson Attending Provider: Zeeshan Dickinson
--- NOTE | 2024-07-10 13:07 | CARE MANAGER ---
Attempted to contact patient related to hospital discharge x2. Left VM message. NEGRITA Carlton
== END 2024-07-08 16:18 | disposition home health service (06) ==
LOC: ER 20:24 → 2ND 20:32
PROVIDERS: Internal Medicine; Admitting Provider Student in an Organized Health Care Education/Training Program; Emergency Provider Student in an Organized Health Care Education/Training Program; PCP Nurse Practitioner Family; Visit Provider Student in an Organized Health Care Education/Training Program
DX: I95.1 Orthostatic hypotension (principal); R74.8 Abnormal levels of other serum enzymes; N18.9 Chronic kidney disease, unspecified; I12.9 Hypertensive chronic kidney disease with stage 1 through stage 4 chronic kidney disease, or unspecified chronic kidney disease; E11.22 Type 2 diabetes mellitus with diabetic chronic kidney disease; F32.9 Major depressive disorder, single episode, unspecified; E78.5 Hyperlipidemia, unspecified; Z79.899 Other long term (current) drug therapy
CPT/HCPCS: 36415; 80053; 81001; 82962; 85025; 93005; 99285; G0378; J7030

== ENCOUNTER 2024-09-28 14:00 | Outpatient (CLI) | payer MEDICARE, SELFPAY ==
[2024-09-28 14:54] LABS: Albumin Level 4.1 g/dl (3.5-5.0); Chloride 106 mmol/L (98-107); Sodium 141 mmol/L (136-145)
[2024-09-28 14:55] LABS: Potassium 4.3 mmoL/L (3.5-5.1)
[2024-09-28 14:57] LABS: Alanine Aminotransferase 60 U/L (12-78); Albumin/Globulin Ratio 1.7 (1.1-1.8); Alkaline Phosphatase 78 U/L (38-126); Anion Gap 14.3 mEq/L (5-15); Aspartate Amino Transferase 49 U/L (14-36); Bilirubin,Total 0.4 mg/dl (0.2-1.3); Blood Urea Nitrogen 27 mg/dl (7-17); Carbon Dioxide 25 mmol/L (22.0-30.0); Estimated Glomerular Filt Rate 49 ml/min (>60); GFR (African American) 59 ML/MIN (>60); Globulin 2.4 g/dL (1.3-3.2); Total Protein,Serum 6.5 g/dl (6.3-8.2)
[2024-09-28 14:58] LABS: Calcium 9.4 mg/dl (8.4-10.2); Glucose 69 mg/dl (74-100)
== END 2024-09-28 23:59 | disposition home or self-care (01) ==
LOC: LAB 14:02
PROVIDERS: PCP Nurse Practitioner Family; Visit Provider Nurse Practitioner Family
DX: R74.8 Abnormal levels of other serum enzymes (principal)
CPT/HCPCS: 36415; 80053

== ENCOUNTER 2025-07-01 08:22 | Outpatient (CLI) | payer MEDICARE, SELFPAY ==
--- NOTE | 2025-07-01 08:26 | MM_ITS ---
PROCEDURE INFORMATION: Exam: MG Bilateral Screening 3D Mammography Exam date and time: 07/01/2025 8:45 AM Age: 69 years old Clinical indication: Screening mammogram TECHNIQUE: Imaging protocol: Bilateral Screening tomosynthesis and 2D mammography including computer-aided detection (CAD) when performed. COMPARISON: 1. MG MM DIG SCREENING MAMM BI W/CAD 07/17/2021 8:02 AM 2. MG MM DIG SCREENING MAMM BI W/CAD 06/24/2020 10:57 AM FINDINGS: MAMMOGRAPHY: Breast composition: There are scattered areas of fibroglandular density. Mass: None. Architectural distortion: No new or suspicious architectural distortion. Calcifications: No new or suspicious calcifications are present Asymmetric density: No new or suspicious asymmetric density is present Skin thickening: None. Axillary adenopathy: None. IMPRESSION: No mammographic evidence of malignancy. Recommend annual screening mammography unless otherwise clinically indicated. ASSESSMENT: BI-RADS category 1: Negative.
--- NOTE | 2025-07-01 08:27 | XR_ITS ---
FINAL REPORT CLINICAL HISTORY: SCREENING COMPARISON: 07/17/2021 FINDINGS: Using L1-4, the bone mineral density of the spine is 1.251 g/cm2, corresponding to T-score of 1.9, within normal limits. Previously was 1.191 with a T-score of 1.3. Using the left hip, the bone mineral density of the femoral neck is 0.740 g/cm2, corresponding to a T-score of -1.0, within normal limits. Previously was 0.699 with a T-score of -1.4. Using the right hip, the bone mineral density of the femoral neck is 0.766 g/cm2, corresponding to a T-score of -0.8, within normal limits. Previously was 0.785 with a T-score of -0.6. FRAX not reported because all T-scores at or above -1.0. The patient is being treated for osteoporosis. NOTE: T-score: Standard deviation compared with peak bone mass of young adult mean. *Following the recommendations of the International Society of Bone densitometry, classification of hip BMD is based on the lower of two T-scores; total hip or femoral neck. IMPRESSION: Normal bone mineral density of the lumbar spine and hips. Reviewed, Interpreted and Dictated by Nicolas Fuentes MD Transcribed by Palma Wetzel Authenticated and . [facility]
--- OUTSIDE RECORDS SUMMARY | 2025-07-01 08:29 | XMS_ITS | Encounter Summary ---
Author Organization [facility] Address [address] [id number] Care Team Providers Care Certified Registered Locksmith Name Role Phone Mayra Duff APRN Primary Care Provider [phone] Reason for Referral * Consultation (Routine) - Closed Specialty Diagnoses / Procedures Referred By Contmartine t Referred To Contact Nephrology Diagnoses Type 2 diabetes mellitus with ESRD (end-stage renal disease) Mayra Duff APRN [address] [place] [address] Phone: tel: fax: [facility] Nephrology, Bone [facility] Mineral Metabolism [address], [address] [place] [address] Phone: tel: fax: Referral ID Status Reason Start Date Expiration Date V isits Requested Visits Authorized [id number] Closed Specialty Services Required 05/21/2023 11/19/2024 1 1 Encounter Details Date Type Department Care Team (Late st Contact Info) Description 05/21/2023 Community Orders Community Practice [address] [place] [address] Myara Duff, JILLIAN [address] [place], [place] [id number] Type 2 diabetes mellitus with ESRD (end-stage renal disease) (CMS/HCC) (Primary Dx) Social History Tobacco Use Types Packs/Day Years Used Date Smoking Tobacco: Every Day Comments Unknown Sex and Gender Information Value Date Recorded Sex Assigned at Not on file Legal Sex Female 6:12 PM EDT Gender Identity Not on file Sexual Orientation Not on file documented as of this encounter Plan of Treatment Upcoming Encounters Date Type Department Care Team (Late st Contact Info) Description 09/29/2025 2:20 PM EST Office Visit [facility] Mineral Metabolism [address], [address] [place] [address] Scheduled Referrals Name Type Priority Associated Diagnoses Order Schedule Ambulatory referral to Nephrology Outpatient Referral Routine Type 2 diabetes mellitus with ESRD (end-stage renal disease) (CMS/[facility]) Expected: 05/21/2023 (Approximate), Expires: 11/18/2024 documented as of this encounter Visit Diagnoses Diagnosis Type 2 diabetes mellitus with ESRD (end-stage renal disease)- Primary documented in this encounter Care Teams Certified Registered Locksmith Relationship Specialty Start Date End Date Mayra Duff APRN [address] [place] [address] [address] PCP - General 05/23/23 documented as of this encounter
--- OUTSIDE RECORDS SUMMARY | 2025-07-01 08:29 | XMS_ITS | Referral Summary ---
Author Organization [employer] ([place], [place], [place], [place]) Address [address] [place] [address] Care Team Providers Care Gear Machine Operator General Name Role Phone Mayra Duff APRN Primary Care Provider [phone] Allergies Active Allergy Reactions Criticality Noted Date Comments Sulfamethoxazole-Tr imethoprim Other (See Comments) Low 09/23/2023 Patient reports that medication caused anxiety, dizziness Medications omeprazole (PriLOSEC) 40 MG capsule Take 1 capsule (40 mg total) by mouth in the morning. Active carvediloL (COREG) 12.5 MG tablet Take 1 tablet (12.5 mg total) by mouth 2 (two) times daily. Active alendronate (FOSAMAX) 70 MG tablet Take 1 tablet (70 mg total) by mouth once a week Saturday. Active levothyroxine (SYNTHROID, LEVOTHROID) 50 MCG tablet Take 1 tablet (50 mcg total) by mouth every morning. Active lovastatin (MEVACOR) 20 MG tablet Take 1 tablet (20 mg total) by mouth nightly. Active lisinopriL (PRINIVIL,ZESTR IL) 2.5 MG tablet Take 1 tablet (2.5 mg total) by mouth in the morning. Active Active Problems Problem Noted Date Diagnosed Date Brain aneurysm 05/13/2024 Diabetes mellitus 05/13/2024 GERD (gastroesophageal reflux disease) Hyperlipidemia 05/13/2024 Hypertension 05/13/2024 Gallstones 05/12/2024 Biliary colic 05/12/2024 Social History Tobacco Use Types Packs/Day Years Used Date Smoking Tobacco: Never Smokeless Tobacco: Never Tobacco Cessation:Counseling Given: Not Answered Alcohol Use Standard Drinks/Week Comments Never 0 (1 standard drink = 0.6 oz pur e alcohol) Utilities Answer Date Recorded In the past 12 months, has t he electric, gas, oil, or water company threatened to shut off services in your home? No 05/12/2024 Interpersonal Safety Answer Date Record ed How often does anyone, ortega murray family and friends, physically hurt you? Never 05/12/2024 How often does anyone, ortega murray family and friends, insult or talk down to you? Never 05/12/2024 How often does anyone, ortega murray family and friends, threaten you with harm? Never 05/12/2024 How often does anyone, ortega murray family and friends, scream or curse at you? Never 05/12/2024 Housing Stability Answer Date Recorded What is your living situation today? I have a [facility] place to live 05/12/[address] you li ve. Do you have problems with any of the following? None of the above 05/12/2024 Food Insecurity Answer Date Recorded Within the past 12 months, y ou worried that your food would run out before you got money to buy more. Never true 05/12/2024 Within the past 12 months, t he food you bought just didn't last and you didn't have money to get more. Never true 05/12/2024 Transportation Needs Answer Date Record ed In the past 12 months, has l ack of reliable transportation kept you from medical appointments, meetings, work or from getting things needed for daily living? No 05/12/2024 Financial Resource Strain Answer Date R ecorded How hard is it for you to pa y for the very basics like food, housing, medical care, and heating? Would you say it is: Not hard at all 05/12/2024 Employment Answer Date Recorded Do you want help finding or keeping work or a job? I do not need or want help 05/12/2024 Family and Community Support Answer Nghia e Recorded If for any reason you need h elp with day-to-day activities such as bathing, preparing meals, shopping, managing finances, etc., do you get the help you need? I don't need any help 05/12/2024 Feeling Lonely or Isolated 0 05/12 Educational Attainment Answer Date Duc rded Do you speak a language other than Slovenian at ho mo? No 05/12/2024 Do you want help with school or training? For example, starting or completing job training or getting a high school diploma, GED or equivalent. No 05/12/2024 Physical Activity Answer Date Recorded Number of minutes of exercise per week 0 05/12/2024 Self Management Answer Date Recorded Because of a physical, menta l, or emotional condition, do you have serious difficulty concentrating, remembering, or making decisions? (5 years or older) No 05/12/2024 Because of a physical, menta l, or emotional condition, do you have difficulty doing errands alone such as visiting a doctor's office or shopping? (15 years or older) No 05/12/2024 Substance Use Answer Date Recorded How many times in the past y ear have you used prescription drugs for non-medical reasons? Never 05/12/2024 How many times in the past year have you used [place] legal drugs? Never 05/12/2024 Comments Unknown Sex and Gender Information Value Date Recorded Sex Assigned at Not on file Legal Sex Female 5:26 PM CDT Gender Identity Not on file Sexual Orientation Not on file Last Filed Vital Signs Vital Sign Reading Time Taken Comments Blood Pressure 130/78 05/22/2024 10:08 AM EDT Pulse 82 05/22/2024 10:08 AM EDT Temperature 36.2 C (97.1 F) 05/13/2024 1:11 PM EDT Respiratory Rate 10 05/13/2024 1:40 PM EDT Oxygen Saturation 98% 05/22/2024 10: 08 AM EDT Inhaled Oxygen Concentration - - Weight 52.1 kg (114 lb 12.8 oz) 024 10:08 AM EDT Height 162.6 cm (5' 4 ) 05/22/2024 10:0 8 AM EDT Body Mass Index 19.71 05/22/2024 10:08 AM EDT Plan of Treatment Not on file Insurance [facility] Advance Directives For more information, please contact: [phone] * Full Code (Latest Code Status on File) Date Activated Date Inactivated Comments 05/13/2024 9:44 AM 05/13/2024 5:50 PM * Full Code Date Activated Date Inactivated Comments 05/12/2024 3:58 PM 05/13/2024 9:44 AM Care Teams Gear Machine Operator General Relationship Specialty Start Date End Date Mayra Duff, GEEK SQUAD AGENT [address] [place] [address] PCP - General Family Medicine 05/12/24
--- OUTSIDE RECORDS SUMMARY | 2025-07-01 08:29 | XMS_ITS | Clinical Summary ---
Author Organization [facility] Address [address] [place] [address] Care Team Providers Care [employer] Name Role Phone Mayra Duff JILLIAN Primary Care Provider [phone] Allergies Active Allergy Reactions Criticality Noted Date Comments Sulfamethoxazole-Tr imethoprim Other - please document in the comment field Low 09/23/2023 Patient reports that medication caused anxiety, dizziness Medications alendronate (Fosamax) 70 MG tablet Take 1 tablet (70 mg) by mouth every 7 (seven) days. Take in the morning with a full glass of water, on an empty stomach, and do not take anything else by mouth or lie down for the next 30 min. Active carvedilol (Coreg) 12.5 MG tablet Take by mouth 2 (two) times a day with meals. Active Finerenone 10 MG tablet Take by mouth. Activ e levothyroxine (Synthroid, Levoxyl) 50 MCG tablet Take 1 tablet (50 mcg) by mouth 1 (one) time each day before breakfast. Active lisinopril 5 MG tablet Take 1 tablet (5 mg) by mouth 1 (one) time each day. 1/2 tab daily Active lovastatin (Altoprev) 20 MG 24 hr tablet Take 1 tablet (20 mg) by mouth every night. Do not crush, chew, or split. Active metFORMIN (Glucophage) 500 MG tablet Take 1 tablet (500 mg) by mouth 2 (two) times a day with meals. Active DULoxetine (Cymbalta) [address] capsule TAKE 1 CAPSULE BY MOUTH ONCE DAILY IN THE MORNING FOR DEPRESSION 5 Active busPIRone (Buspar) 5 MG tablet TAKE 1 TABLET BY MOUTH THREE TIMES DAILY FOR ANXIETY 5 Active gabapentin (Neurontin) 300 MG capsule TAKE 1 CAPSULE BY MOUTH THREE TIMES DAILY FOR BACK PAIN 4 Active Multiple Vitamins-Minera ls (Womens Multivitamin) tablet Take by mouth. Activ e Active Problems Problem Noted Date Diagnosed Date Osteoporosis 09/20/2023 High blood pressure 09/08/2019 Thyroid disease 09/08/2019 Diabetes 09/08/2019 Encounters Date Type Department Care Team Description 03/31/2025 1:40 PM EDT Office Visit [facility] Nephrology, Bone & Mineral Metabolism [address], [address] [place] [address] Bartolome Boyle MD Stage 3a chronic kidney disease (CMS/HCC) (Primary Dx); Anemia of chronic disease 03/31/2025 Travel from Last 3 Months Immunizations Immunization Administration Dates Next Due Influenza, high-dose, quadrivalent 07/10/2023 Influenza, injectable, quadrivalent 06/21/2020 Influenza, injectable, quadr ivalent, preservative free 07/11/2022,06/30/2021 Moderna COVID-19 Vaccine (Re d Cap) 12+ years 03/13/2022,08/10/2021,01/12/2021,12/15 Vast Covid-19 Vaccine 12y+ , Jacky Protein, PF, Oswald-Sucrose 07/26/2023 Pneumococcal Polysaccharide PPV23 12/21/2019 TD (adult), 2 Lf tetanus tox oid, preservative free, adsorbed 02/11/2001 Family History Medical History Relation Name Comments Cardiac disorder Brother 1 Diabetes Brother 2 Diabetes Mother Diabetes Sister Relation Name Status Comments Brother 1 Brother 2 Mother Sister Social History Tobacco Use Types Packs/Day Years Used Date Smoking Tobacco: Former Cigarettes Smokeless Tobacco: Never Tobacco Cessation:Counseling Given: Not Answered Alcohol Use Standard Drinks/Week Comments Never 0 (1 standard drink = 0.6 oz pur e alcohol) AUDIT-C Answer Date Recorded Frequency of Alcohol Consumption Not on file 03/31/2025 Q2: How many drinks containi ng alcohol do you have on a typical day when you are drinking? Patient does not drink Frequency of Binge Drinking Not on file 03/04 Comments No Sex and Gender Information Value Date Recorded Sex Assigned at Not on file Legal Sex Female 6:12 PM EDT Gender Identity Not on file Sexual Orientation Not on file Last Filed Vital Signs Vital Sign Reading Time Taken Comments Blood Pressure 139/79 03/31/2025 1:48 PM EDT Pulse 84 03/31/2025 1:48 PM EDT Temperature 36.8 C (98.3 F) 03/31/2025 1:48 PM EDT Respiratory Rate 16 09/23/2023 10:4 2 AM EST Oxygen Saturation 99% 03/31/2025 1:48 PM EDT Inhaled Oxygen Concentration - - Weight 69.3 kg (152 lb 12.5 oz) 03/31/2025 1:48 PM EDT Height 162.6 cm (5' 4 ) 09/23/2023 10:4 2 AM EST Body Mass Index 26.22 09/23/2023 10:42 AM EST Plan of Treatment Upcoming Encounters Date Type Department Care Team (Late st Contact Info) Description 09/29/2025 2:20 PM EST Office Visit [facility] Nephrology, Bone & Mineral Metabolism [address], [address] [place] [address] Health Maintenance Due Date Last Done Comments [facility]-Bone Density Scan 1954 [facility]-Depression Screening 1954 [facility]-Diabetes: Hemoglobin A1C 1954 [facility]-Medicare Annual Wellness (AWV) 1954 [facility]-Infant/Child/Adol SDOH Screenings 1954 Diabetes: Dental Exam 1964 [facility]- SDOH Screenings 1972 [facility]-Adult SDOH Screenings 1972 CT Colonography 1999 Colonoscopy 1999 FIT-DNA 1999 FIT 1999 FOBT 1999 Sigmoidoscopy 1999 [facility]-Colorectal Cancer Screening 1999 [facility]-DTaP,Tdap,and Td Vaccines (1 - Tdap) 02/12/2001 02/11/2001 [facility]-Breast Cancer Screening 2004 [facility]-Zoster Vaccines (1 of 2) 2004 [facility]-RSV Vaccine: 60+ Years or (1 - Risk 60-74 years 1-dose series) 2014 [facility]-Pneumococcal Vaccine: 50+ Years (2 of 2 - PCV) 12/20/2020 12/21/2019 [id number] Vaccine (8 - Moderna risk 2023- season) 2025 09/14/2024, 07/26/2023, 07/31/2022, Additional history exists [facility]-Influenza Vaccine (#1) 05/03/202508/12, 07/10/2023, 07/11/2022, Additional history exists [facility]-Hepatitis C Screening Completed 08/20/2019 [facility]-Obesity Intervention Completed 03/31/2025, 09/03 HPV Vaccines Aged Out No longer eligi ble based on patient's age to complete this topic [facility]-HIB Vaccines Aged Out No longer e ligible based on patient's age to complete this topic [facility]-Hepatitis A Vaccines Aged Out No longer eligible based on patient's age to complete this topic [facility]-IPV Vaccines Aged Out No longer e ligible based on patient's age to complete this topic [facility]-Rotavirus Vaccines Aged Out No lo nger eligible based on patient's age to complete this topic Procedures Procedure Name Priority Date/Time Associated Diagnosis Comments HEPATITIS C ANTIBODY - ED W/REFLEX TO HCV QUANT PCR Routine 08/20/2019 6:13 PM EST from Last 3 Months or Most Recently Relevant to Health Maintenance Results * Tori Hepatitis C Antibody (08/20/2019 6:13 PM EST) [place] Hepatitis C Ab NEGATIVE Reference Range: Negative [facility]QUEST 08/20/2019 6:13 PM EST 08/20/2019 6:57 PM EST us David Mitchell MD LAB BLOOD ORDERABLES Final Re sult SUNQUEST from Last 3 Months or Most Recently Relevant to Health Maintenance Insurance [employer] Care Teams [employer] Relationship Specialty Start Date End Date Mayra Duff, JILLIAN [address] [address] [address] [place] [id number] PCP - General 05/23/23
--- OUTSIDE RECORDS SUMMARY | 2025-07-01 08:29 | XMS_ITS | Clinical Summary ---
Author Organization [employer] ([place], [place], [place], [place]) Address [address] [place] [address] Care Team Providers Care Facilities Maintenance Manager Name Role Phone Mayra Duff APRN Primary Care Provider Allergies Active Allergy Reactions Criticality Noted Date [...] Hypertension 05/13/2024 Gallstones 05/12/2024 Biliary colic 05/12/2024 Family History Medical History Relation Name Comments No Known Problem Father No Known Problem Mother Relation Name Status Comments Father Mother Social History Tobacco Use Types Packs/Day Years [...] your living situation today? I have a [facility] place to live 05/12/2024 Think about [...] Do you speak a language other than [place] at [place]? No 05/12/2024 Do you want help with [...] 05/22/2024 10:08 AM EDT Plan of Treatment Health Maintenance Due Date Last Done Comments CT Colonography 1954 Colonoscopy 1954 Colorectal Cancer Screening 1954 DXA SCAN 1954 Diabetic Kidney Health Evalu ation (KED) 1954 FOBT/FIT 1954 Fit-DNA (Cologuard) 1954 Sigmoidoscopy 1954 Diabetic Eye Exam 1964 Depression Screening (12+) 1966 Hepatitis C Screening 1972 Breast Cancer Screening 1994 Shingles Vaccine (Zoster) (1 of 2) 2004 DTAP/TDAP/TD VACCINES (2 - T d or Tdap) 02/11/2011 02/11/2001 Pneumococcal 50+ years (2 of 2 - PCV) 12/20/2020 12/21/2019 Hemoglobin A1C 05/13/2024 Falls Risk Screening 09/02/2024 Medicare Initial AWV [id number] 09/03/2024 COVID-19 VACCINE (7 - 2024-2 6 season) 2025 07/26/2023, 07/31/2022, 03/13/2022, Additional history exists Influenza Vaccine (#1) 2025 07/10/2023 Tobacco Cessation Counseling and Screening (12+) 05/22/2025 05/22/2024 Respiratory Syncytial Virus (RSV) Adult or (1 - 1-dose 75+ series) 2029 Insurance [facility] ACCESS HMO MAP Advance Directives For more information, please contact: [phone] * Full Code (Latest Code Status on File) Date Activated Date Inactivated Comments 05/13/2024 9:44 AM 05/13/2024 5:50 PM * Full Code Date Activated Date Inactivated Comments 05/12/2024 3:58 PM 05/13/2024 9:44 AM Care Teams Facilities Maintenance Manager Relationship Specialty Start Date End Date Mayra Duff, AUTOMOBILE BODY REPAIRER [address] [place] [id number] PCP - General Family Medicine 05/12/24
--- OUTSIDE RECORDS SUMMARY | 2025-07-01 08:30 | XMS_ITS | Encounter Summary ---
Author Organization [employer] ([place], [place], [place], [place]) Address [address] [place] [address] Care Team Providers Care Vehicle Operator Technician Name Role Phone Mayra Duff ROLL GRINDER OPERATOR Primary Care Provider [phone] Encounter Details Date Type Department Care Team (Late st Contact Info) Description 05/14/2024 Outside Orders [facility] Central Scheduling [address] [place] [address] Mayra Duff, ROLL GRINDER OPERATOR [address] [place] [id number] RUQ pain (Primary Dx) Social History Tobacco Use Types Packs/Day Years Used Date Smoking Tobacco: Never Smokeless Tobacco: Never Alcohol Use Standard Drinks/Week Comments Never 0 (1 standard drink = 0.6 oz pur e alcohol) Utilities Answer Date Recorded In the past 12 months, has t he [employer], gas, oil, or water [employer] threatened to shut off services in your [...] your living situation today? I have a [facility] [place] place to live 05/12/2024 Think about the [...] Do you speak a language other than [place] at [facility]? No 05/12/2024 Do you want help with [...] as of this encounter Plan of Treatment Not on file documented as of this encounter Visit Diagnoses Diagnosis RUQ pain- Primary Abdominal pain, right upper quadrant documented in this encounter Care Teams Vehicle Operator Technician Relationship Specialty Start Date End Date Mayra Duff, ROLL GRINDER OPERATOR [address] [place] [address] PCP - General Family Medicine 05/12/24 documented as of this encounter
== END 2025-07-01 23:59 | disposition home or self-care (01) ==
LOC: RAD 08:23
PROVIDERS: PCP Nurse Practitioner Family; Visit Provider Nurse Practitioner Family
DX: Z12.31 Encounter for screening mammogram for malignant neoplasm of breast (principal); M81.0 Age-related osteoporosis without current pathological fracture; R92.323 Mammographic fibroglandular density, bilateral breasts
CPT/HCPCS: 77063; 77067; 77080